=== PATIENT | male | born 1970 ===

== ENCOUNTER 2018-10-11 19:18 | Inpatient (IN) | payer SELFPAY ==
--- NOTE | 2018-10-11 20:01 | Emergency Department Report ---
Blank Doc - Documentation Documentation: This is a 48-year-old male that presents with left foot cellulitis and HTN. This initial assessment/diagnostic orders/clinical plan/treatment(s) is/are subject to change based on patient's health status, clinical progression and re- assessment by fellow clinical providers in the ED. Further treatment and workup at subsequent clinical providers discretion. Patient/guardians urged not to elope from the ED as their condition may be serious if not clinically assessed and managed. Initial orders include: 1- Patient sent to MAIN ED for further evaluation and treatment 2- labs
[2018-10-11] MEDS ORDERED: NACL 0.9% 1000 ML 2,000 ML IV ONE ×2 (20:50→21:18)
[2018-10-11] MEDS ORDERED: VANCOMYCIN 1,250 MG in NACL 0.9% 500 ML 500 ML IV ONE (20:50)
[2018-10-11 20:54] LABS: Basophils % (Auto) 0.2 % (0.0-1.8); Eosinophils % (Auto) 0.1 % (0.0-4.3); Hematocrit 26.7 % (35.5-45.6); Hemoglobin 9.3 gm/dl (11.8-15.2); Mean Corpuscular HGB Conc 35 % (32-34); Mean Corpuscular Volume 91 fl (84-94); Monocytes # (Auto) 1.5 K/mm3 (0.0-0.8); Monocytes % (Auto) 10.2 % (0.0-7.3); Platelet Count 309 K/mm3 (140-440); Red Blood Count 2.94 M/mm3 (3.65-5.03); Red Cell Distribution Width 13.1 % (13.2-15.2)
[2018-10-11] MEDS ORDERED: CLEOCIN 600 MG/50 mL 600 MG/50 ML BAG IV ONE (20:58)
[2018-10-11] MEDS ORDERED: BOOSTRIX IM ONE (20:59)
--- NOTE | 2018-10-11 20:59 | Emergency Department Report ---
ED General Adult HPI - General Chief complaint: Skin/Abscess/Foreign Body Stated complaint: HIGH BP/LEFT FOOT SWOLLEN/BLEEDING Time Seen by Provider: 10/11/18 20:00 Source: patient, family, RN notes reviewed Mode of arrival: Ambulatory Limitations: Language Barrier (this provider is conversational in Japanese. The patient also requests that his son translate and assists in the history and phys ical.) - History of Present Illness Initial comments: This is a 48-year-old gentleman, reportedly living in the [place] for the past 20 years, reports a history of diabetes. He presents to the emergency room today with complaint of left foot redness, p ain, swelling. Apparently this has been present for a few days. His symptoms are constant. They do not radiate anywhere. He makes no complaint of headache, neck pain, chest pain, abdominal pain, shortness of breath or urinary symptoms. This is his first request for medical attention for this lesion. He is not sure if he's had a tetanus vaccination in the past 4 or 5 years. -: Gradual, days(s) Location: left, lower extremity Radiation: non-radiation Severity scale (0 -10): 8 Consistency: constant Improves with: other Worsens with: other - Related Data Previous Rx's Medication Instructions Recorded Last Taken Type cephALEXin [Keflex] 500 mg PO Q8H #15 capsule 12/26/14 Unknown Rx Sulfamethoxazole/Trimethoprim 1 each PO BID #20 tablet 01/06/15 Unknown Rx [Bactrim Ds] metFORMIN [Glucophage] 1,000 mg PO BID #60 tablet 01/06/15 Unknown Rx Allergies Allergy/AdvReac Type Severity Reaction Status Date / Time Penicillins Allergy Dizziness Verified 12/26/14 02:05 ED Review of Systems ROS: Stated complaint: HIGH BP/LEFT FOOT SWOLLEN/BLEEDING Other details as noted in HPI Constitutional: denies: fever Eyes: denies: eye discharge ENT: denies: epistaxis Respiratory: denies: cough Cardiovascular: denies: chest pain Gastrointestinal: denies: abdominal pain Genitourinary: denies: dysuria Musculoskeletal: joint swelling, arthralgia, myalgia Skin: rash, lesions Neurological: denies: weakness ED Past Medical Hx - Past Medical History Previous Medical History?: Yes Hx Hypertension: Yes Hx Diabetes: Yes - Surgical History Past Surgical History?: No - Social History Smoking Status: Never Smoker Substance Use Type: None - Medications Home Medications: Home Medications Medication Instructions Recorded Confirmed Last Taken Type cephALEXin [Keflex] 500 mg PO Q8H #15 capsule 12/26/14 Unknown Rx Sulfamethoxazole/Trimethoprim 1 each PO BID #20 tablet 01/06/15 Unknown Rx [Bactrim Ds] metFORMIN [Glucophage] 1,000 mg PO BID #60 tablet 01/06/15 Unknown Rx ED Physical Exam - General Limitations: Language Barrier General appearance: alert, in no apparent distress - Head Head exam: Present: atraumatic, normocephalic - Eye Eye exam: Present: normal appearance, EOMI. Absent: nystagmus - ENT ENT exam: Present: normal exam, normal orophraynx, mucous membranes moist, normal external ear exam - Neck Neck exam: Present: normal inspection, full ROM. Absent: tenderness, meningismus - Respiratory Respiratory exam: Present: normal lung sounds bilaterally. Absent: respiratory distress - Cardiovascular Cardiovascular Exam: Present: regular rate, normal rhythm, normal heart sounds. Absent: bradycardia, tachycardia, irregular rhythm, systolic murmur, diastolic murmur, rubs, gallop - GI/Abdominal GI/Abdominal exam: Present: soft. Absent: distended, tenderness, guarding, rebound, rigid, pulsatile mass - Rectal Rectal exam: Present: deferred - Extremities Exam Extremities exam: Present: full ROM, tenderness (there is left foot redness, warmth, streaking, erythema. There is no crepitus. Fourth toe appears to be necrotic. Compartments are soft.), other (2+ pulses noted in the bilateral upper, lower extremities. Compartments soft. No long bony tenderness. The pelvis is stable.). Absent: normal inspection (the bilateral upper extremities are within normal limits, and the right lower extremity and foot are within normal limits.), pedal edema, joint swelling, calf tenderness - Back Exam Back exam: Present: normal inspection, full ROM. Absent: tenderness, CVA tenderness (R), paraspinal tenderness, vertebral tenderness - Neurological Exam Neurological exam: Present: alert, other (Extraocular movements intact. Tongue midline. No facial droop. Facial sensation intact to light touch in the V1, V2, V3 distribution bilaterally. 5 and 5 strength in 4 extremities.. Sensation is intact to light touch in 4 extremities.). Absent: motor sensory deficit - Psychiatric Psychiatric exam: Present: normal affect, normal mood - Skin Skin exam: Present: warm, rash, erythema ED Course Vital Signs 10/11/18 10/11/18 20:01 20:36 Temperature 98.7 F 99.1 F Pulse Rate 85 83 Respiratory 18 18 Rate Blood Pressure 140/81 Blood Pressure 168/77 [Left] O2 Sat by Pulse 100 Oximetry - Reevaluation(s) Reevaluation #1: 10/11/18 22:53 Differential diagnosis, including but not limited to: Cellulitis, myositis, osteomyelitis, diabetic injury, incidental renal insufficiency, incidental electrolyte abnormalities Assessment and plan: 48-year-old gentleman with 2 active issues Issue #1: Diabetic foot cellulitis. Pulses are intact. Patient will be treated with IV fluids, pain medication, appropriate targeted antibiotic therapy, and x-ray of the foot. Tetanus vaccination be admitted. I recommended admission to the hospital for IV antibiotics and further wound care. X-ray the foot suggest gas around the fourth digit, in conjunction with necrotic tissue, we will therefore obtain general surgery consult to follow in consul tation. Issue #2: Incidental renal insufficiency, creatinine of greater than 4, and hyperkalemia. We will give IV fluids, and she medically for hyperkalemia. Repeat basic metabolic panel has been ordered. Discussed with nephrology electronic equipment maint tech, Dr. Pimentel, who will follow in consultation. Case is presented to the Hospital physician, Dr. Montoya, who has accepted the patient to the medical service. I will defer to the inpatient team to follow-up on the repeat basic metabolic panel. 10/11/18 23:00 - Consultations Consultation #1: 10/11/18 23:12 Discussed with general surgery on-call, Dr. Oakes, who agrees to follow in consultation. ED Medical Decision Making - Lab Data Result diagrams: 10/11/18 20:17 10/11/18 20:17 Vital Signs 10/11/18 10/11/18 20:01 20:36 Temperature 98.7 F 99.1 F Pulse Rate 85 83 Respiratory 18 18 Rate Blood Pressure 140/81 Blood Pressure 168/77 [Left] O2 Sat by Pulse 100 Oximetry Lab Results 10/11/18 10/11/18 10/11/18 Range/Units 20:08 20:17 20:17 WBC 14.3 H (4.5-11.0) K/mm3 RBC 2.94 L (3.65-5.03) M/mm3 Hgb 9.3 L (11.8-15.2) gm/dl Hct 26.7 L (35.5-45.6) % MCV 91 (84-94) fl MCH 31 (28-32) pg MCHC 35 H (32-34) % RDW 13.1 L (13.2-15.2) % Plt Count 309 (140-440) K/mm3 Lymph % (Auto) 7.0 L (13.4-35.0) % [place] % (Auto) 10.2 H (0.0-7.3) % Eos % (Auto) 0.1 (0.0-4.3) % Baso % (Auto) 0.2 (0.0-1.8) % Lymph # 1.0 L (1.2-5.4) K/mm3 [place] # 1.5 H (0.0-0.8) K/mm3 Eos # 0.0 (0.0-0.4) K/mm3 Baso # 0.0 (0.0-0.1) K/mm3 Seg Neutrophils % 82.5 H (40.0-70.0) % Seg Neutrophils # 11.8 H (1.8-7.7) K/mm3 ESR (0-20) mm/Hr Sodium 131 L (137-145) mmol/L Potassium 6.4 H* (3.6-5.0) mmol/L Chloride 93.9 L (98-107) mmol/L Carbon Dioxide 22 (22-30) mmol/L Anion Gap 22 mmol/L BUN 72 H (9-20) mg/dL Creatinine 4.6 H (0.8-1.5) mg/dL Estimated GFR 14 ml/min BUN/Creatinine Ratio 16 % Glucose 114 H (75-100) mg/dL POC Glucose 115 H (70-105) Lactic Acid (0.7-2.0) mmol/L Calcium 9.3 (8.4-10.2) mg/dL Total Bilirubin 0.20 (0.1-1.2) mg/dL Direct Bilirubin < 0.2 (0-0.2) mg/dL Indirect Bilirubin 0.0 mg/dL AST 21 (5-40) units/L ALT 18 (7-56) units/L Alkaline Phosphatase 92 (35-129) units/L C-Reactive Protein (0.00-1.30) mg/dL Total Protein 7.4 (6.3-8.2) g/dL Albumin 4.0 (3.9-5) g/dL Albumin/Globulin Ratio 1.2 % Urine Color (Yellow) Urine Turbidity (Clear) Urine pH (5.0-7.0) Ur Specific [place] (1.003-1.030) Urine Protein (Negative) mg/dL Urine Glucose (UA) (Negative) mg/dL Urine Ketones (Negative) mg/dL Urine Blood (Negative) Urine Nitrite (Negative) Urine Bilirubin (Negative) Urine Urobilinogen (<2.0) mg/dL Ur Leukocyte Esterase (Negative) Urine WBC (Auto) (0.0-6.0) /HPF Urine RBC (Auto) (0.0-6.0) /HPF U Epithel Cells (Auto) (0-13.0) /HPF Hyaline Casts /LPF Urine Mucus /HPF Urine Yeast (Budding) /HPF Urine Sperm ([employer]) /HPF 10/11/18 10/11/18 10/11/18 Range/Units 21:05 21:05 21:05 WBC (4.5-11.0) K/mm3 RBC (3.65-5.03) M/mm3 Hgb (11.8-15.2) gm/dl Hct (35.5-45.6) % MCV (84-94) fl MCH (28-32) pg MCHC (32-34) % RDW (13.2-15.2) % Plt Count (140-440) K/mm3 Lymph % (Auto) (13.4-35.0) % [place] % (Auto) (0.0-7.3) % Eos % (Auto) (0.0-4.3) % Baso % (Auto) (0.0-1.8) % Lymph # (1.2-5.4) K/mm3 [place] # (0.0-0.8) K/mm3 Eos # (0.0-0.4) K/mm3 Baso # (0.0-0.1) K/mm3 Seg Neutrophils % (40.0-70.0) % Seg Neutrophils # (1.8-7.7) K/mm3 ESR 140 (0-20) mm/Hr Sodium (137-145) mmol/L Potassium (3.6-5.0) mmol/L Chloride (98-107) mmol/L Carbon Dioxide (22-30) mmol/L Anion Gap mmol/L BUN (9-20) mg/dL Creatinine (0.8-1.5) mg/dL Estimated GFR ml/min BUN/Creatinine Ratio % Glucose (75-100) mg/dL POC Glucose (70-105) Lactic Acid 0.70 (0.7-2.0) mmol/L Calcium (8.4-10.2) mg/dL Total Bilirubin (0.1-1.2) mg/dL Direct Bilirubin (0-0.2) mg/dL Indirect Bilirubin mg/dL AST (5-40) units/L ALT (7-56) units/L Alkaline Phosphatase (35-129) units/L C-Reactive Protein 4.90 H (0.00-1.30) mg/dL Total Protein (6.3-8.2) g/dL Albumin (3.9-5) g/dL Albumin/Globulin Ratio % Urine Color (Yellow) Urine Turbidity (Clear) Urine pH (5.0-7.0) Ur Specific [place] (1.003-1.030) Urine Protein (Negative) mg/dL Urine Glucose (UA) (Negative) mg/dL Urine Ketones (Negative) mg/dL Urine Blood (Negative) Urine Nitrite (Negative) Urine Bilirubin (Negative) Urine Urobilinogen (<2.0) mg/dL Ur Leukocyte Esterase (Negative) Urine WBC (Auto) (0.0-6.0) /HPF Urine RBC (Auto) (0.0-6.0) /HPF U Epithel Cells (Auto) (0-13.0) /HPF Hyaline Casts /LPF Urine Mucus /HPF Urine Yeast (Budding) /HPF Urine Sperm ([employer]) /HPF 10/11/18 Range/Units 21:20 WBC (4.5-11.0) K/mm3 RBC (3.65-5.03) M/mm3 Hgb (11.8-15.2) gm/dl Hct (35.5-45.6) % MCV (84-94) fl MCH (28-32) pg MCHC (32-34) % RDW (13.2-15.2) % Plt Count (140-440) K/mm3 Lymph % (Auto) (13.4-35.0) % [place] % (Auto) (0.0-7.3) % Eos % (Auto) (0.0-4.3) % Baso % (Auto) (0.0-1.8) % Lymph # (1.2-5.4) K/mm3 [place] # (0.0-0.8) K/mm3 Eos # (0.0-0.4) K/mm3 Baso # (0.0-0.1) K/mm3 Seg Neutrophils % (40.0-70.0) % Seg Neutrophils # (1.8-7.7) K/mm3 ESR (0-20) mm/Hr Sodium (137-145) mmol/L Potassium (3.6-5.0) mmol/L Chloride (98-107) mmol/L Carbon Dioxide (22-30) mmol/L Anion Gap mmol/L BUN (9-20) mg/dL Creatinine (0.8-1.5) mg/dL Estimated GFR ml/min BUN/Creatinine Ratio % Glucose (75-100) mg/dL POC Glucose (70-105) Lactic Acid (0.7-2.0) mmol/L Calcium (8.4-10.2) mg/dL Total Bilirubin (0.1-1.2) mg/dL Direct Bilirubin (0-0.2) mg/dL Indirect Bilirubin mg/dL AST (5-40) units/L ALT (7-56) units/L Alkaline Phosphatase (35-129) units/L C-Reactive Protein (0.00-1.30) mg/dL Total Protein (6.3-8.2) g/dL Albumin (3.9-5) g/dL Albumin/Globulin Ratio % Urine Color Yellow (Yellow) Urine Turbidity Slightly-cloudy (Clear) Urine pH 5.0 (5.0-7.0) Ur Specific [place] 1.011 (1.003-1.030) Urine Protein 100 mg/dl (Negative) mg/dL Urine Glucose (UA) Neg (Negative) mg/dL Urine Ketones Tr (Negative) mg/dL Urine Blood Sm (Negative) Urine Nitrite Neg (Negative) Urine Bilirubin Neg (Negative) Urine Urobilinogen < 2.0 (<2.0) mg/dL Ur Leukocyte Esterase Neg (Negative) Urine WBC (Auto) 2.0 (0.0-6.0) /HPF Urine RBC (Auto) 6.0 (0.0-6.0) /HPF U Epithel Cells (Auto) < 1.0 (0-13.0) /HPF Hyaline Casts 1 /LPF Urine Mucus Few /HPF Urine Yeast (Budding) Few /HPF Urine Sperm Few ([employer]) /HPF - EKG Data -: EKG Interpreted by Me EKG shows normal: sinus rhythm Rate: normal - EKG Data When compared to previous EKG there are: previous EKG unavailable 10/11/18 23:00 EKG shows sinus, 79 bpm, normal axis, QTC within normal limits, high left ventricular voltage, early repolarization, question atrial enlargement, motion artifact, abnormal EKG, this is not consistent with an ST elevation myocardial infarction. - Radiology Data Radiology results: image reviewed interpreted by me: X-ray of the foot demonstrates gas around the fourth toe. No obvious fracture or dislocation. Critical Care Time: Yes Critical care time in (mins) excluding proc time.: 60 Critical care attestation.: If time is entered above; I have spent that time in minutes in the direct care of this critically ill patient, excluding procedure time. ED Disposition Clinical Impression: Cellulitis of foot, left, DAVEY (acute kidney injury), Hyperkalemia Disposition: OP ADMIT IP TO THIS HOSP Is pt being admited?: Yes Condition: Serious
[2018-10-11 21:12] LABS: Alanine Aminotransferase 18 units/L (7-56); BUN/Creatinine Ratio 16; Blood Urea Nitrogen 72 mg/dL (9-20); Calcium 9.3 mg/dL (8.4-10.2); Hemolysis Index 0
[2018-10-11 21:13] LABS: Bilirubin,Direct < 0.2 mg/dL (0-0.2)
[2018-10-11] MEDS ORDERED: PROVENTIL IH ONE (21:17)
[2018-10-11] MEDS ORDERED: HumuLIN R IV ONE (21:17)
[2018-10-11] MEDS ORDERED: CALCIUM GLUCONATE 2,000 MG in NACL 0.9% 100 ML IV ONE (21:17)
[2018-10-11] MEDS ORDERED: KIONEX PO ONE (21:17)
[2018-10-11] MEDS ORDERED: D50W (25GM) Syringe IV ONE (21:17)
[2018-10-11 21:34] LABS: Bilirubin,Urine NEG (Negative); Blood,Urine SM (Negative); Color,Urine Yellow (Yellow); Hyaline Casts,Urine 1 /LPF; Mucus,Urine FEW /HPF; Sperm,Urine FEW /HPF (NP); Urobilinogen,Urine < 2.0 mg/dL (<2.0)
[2018-10-11] MEDS ORDERED: VANCOMYCIN 1,250 MG in NACL 0.9% 250ML 250 ML IV ONE (22:00)
[2018-10-11] MEDS ORDERED: FLAGYL 500 MG/100 ML 500 MG/100 ML BAG IV NR (23:00)
--- NOTE | 2018-10-11 23:33 | XRay Report ---
PROCEDURE: XR FOOT 3+V LT TECHNIQUE: Left foot radiographs, AP, lateral, and oblique views. HISTORY: left foot pain cellulitis COMPARISONS: None . FINDINGS: There is irregular infarction DISTAL metaphysis of fourth proximal phalanx associated with adjacent s oft tissue air. There is no definite periosteal reaction. Moderate degree of surrounding soft tissue swelling is noted. Remaining bones and joints are within normal limits. IMPRESSION: Findings are consistent with acute osteomyelitis involving the fourth proximal phalanx. This document is electronically signed by Tl Barber MD., October 11 2018 11:31:30 PM ET
[2018-10-12] MEDS ORDERED: MORPHINE IV PRN (00:23)
[2018-10-12] MEDS ORDERED: ZOFRAN IV PRN (00:24)
[2018-10-12] MEDS ORDERED: TYLENOL PR PRN (00:25)
[2018-10-12] MEDS ORDERED: D50W (25GM) Syringe IV PRN (00:26)
[2018-10-12] MEDS ORDERED: VANCOMYCIN PHARMACY TO DOSE IV SCH (01:00)
[2018-10-12] MEDS ORDERED: VANCOMYCIN 1,250 MG in NACL 0.9% 250ML 250 ML IV ONE (01:00)
[2018-10-12 07:46] LABS: Calcium 8.3 mg/dL (8.4-10.2)
[2018-10-12] MEDS: HumuLIN R SUB-Q SCH ×4 (08:00→22:50)
[2018-10-12] MEDS ORDERED: XYLOCAINE 1% 20 mL INFILTRATI NR (09:10)
--- NOTE | 2018-10-12 09:42 | Consultation ---
History of Present Illness Consult date: 10/12/18 Reason for consult: other (left foot infection) Requesting physician: BIJAL SCHMITT Chief complaint: 1 week h/o left foot pain - History of present illness History of present illness: 48yo M presents with left foot pain by one week. Reports that there was no trauma to the left foot. One day he started to notice the 4th toe getting darker appearance and then eventually starting to swell and cause pain. Denies fevers. Has been having chills, nausea, vomiting. Has never had any problems with the foot in the past. He does feel as though it is asleep. Is able to walk without problems. We are asked to see him for possible 4th toe infection. As an aside, patient reports that his blood sugars are normally around 145. Past History Past Medical History: diabetes, hypertension Past Surgical History: No surgical history, Other (has had EGD and C-scope) Social history: denies: smoking, alcohol abuse, prescription drug abuse, IV drug use Family history: no significant family history Medications and Allergies Allergies Allergy/AdvReac Type Severity Reaction Status Date / Time Penicillins Allergy Dizziness Verified 12/26/14 02:05 Home Medications Medication Instructions Recorded Confirmed Last Taken Type cephALEXin [Keflex] 500 mg PO Q8H #15 capsule 12/26/14 Unknown Rx Sulfamethoxazole/Trimethoprim 1 each PO BID #20 tablet 01/06/15 Unknown Rx [Bactrim Ds] metFORMIN [Glucophage] 1,000 mg PO BID #60 tablet 01/06/15 Unknown Rx Active Meds: Active Medications Acetaminophen (Tylenol) 650 mg [place] Q4H PRN PRN Reason: Fever >101 Dextrose (D50w (25gm) Syringe) 50 ml IV PRN PRN PRN Reason: Hypoglycemia Insulin Human Regular (Humulin R) 0 units SUB-Q AC JOSÉ ANTONIO; Protocol Insulin Human Regular (Humulin R) 0 units SUB-Q QHS JOSÉ ANTONIO; Protocol Lidocaine (Xylocaine 1% 20 Ml) 20 ml INFILTRATI ONCE ONE Stop: 10/12/18 09:11 Morphine Sulfate (Morphine) 2 mg IV Q4H PRN PRN Reason: Pain, Moderate (4-6) Ondansetron HCl (Zofran) 4 mg IV Q8H PRN PRN Reason: Nausea And Vomiting Review of Systems - Constitutional chills, no fever, no chronic pain - Cardiovascular no chest pain, no shortness of breath - Respiratory no cough - Gastrointestinal nausea, vomiting, no abdominal pain - Integumentary rash, redness, wounds, darkening of skin, color changes - Neurological tingling (left foot) Exam Vital Signs Temp Pulse Resp BP 98.7 F 85 18 140/81 10/11/18 20:01 10/11/18 20:01 10/11/18 20:01 10/11/18 20:01 - General physical appearance Positive: no distress, no pain, other (pleasant) - Eyes Positive: normal occular movement - Respiratory Positive: normal expansion, normal respiratory effort - Extremities Extremities: pulses intact Extremity abnormal: edema, erythema, tenderness, other (increased warmth of left foot. There is purulent fluid draining from lateral aspect of 4th toe) - Neurologic Neurologic: alert and oriented to time, place and person, motor strength and sensation are grossly intact - Psychiatric Psychiatric: appropriate mood/affect, intact judgment & insight Results - Labs 10/11/18 20:17 10/12/18 06:31 Abnormal lab results 10/11/18 10/11/18 10/11/18 Range/Units 20:08 20:17 20:17 WBC 14.3 H (4.5-11.0) K/mm3 RBC 2.94 L (3.65-5.03) M/mm3 Hgb 9.3 L (11.8-15.2) gm/dl Hct 26.7 L (35.5-45.6) % MCHC 35 H (32-34) % RDW 13.1 L (13.2-15.2) % Lymph % (Auto) 7.0 L (13.4-35.0) % [place] % (Auto) 10.2 H (0.0-7.3) % Lymph # 1.0 L (1.2-5.4) K/mm3 [place] # 1.5 H (0.0-0.8) K/mm3 Seg Neutrophils % 82.5 H (40.0-70.0) % Seg Neutrophils # 11.8 H (1.8-7.7) K/mm3 Sodium 131 L (137-145) mmol/L Potassium 6.4 H* (3.6-5.0) mmol/L Chloride 93.9 L (98-107) mmol/L BUN 72 H (9-20) mg/dL Creatinine 4.6 H (0.8-1.5) mg/dL Glucose 114 H (75-100) mg/dL POC Glucose 115 H (70-105) Calcium (8.4-10.2) mg/dL C-Reactive Protein (0.00-1.30) mg/dL 10/11/18 10/12/18 10/12/18 Range/Units 21:05 06:31 07:43 WBC (4.5-11.0) K/mm3 RBC (3.65-5.03) M/mm3 Hgb (11.8-15.2) gm/dl Hct (35.5-45.6) % MCHC (32-34) % RDW (13.2-15.2) % Lymph % (Auto) (13.4-35.0) % [place] % (Auto) (0.0-7.3) % Lymph # (1.2-5.4) K/mm3 [place] # (0.0-0.8) K/mm3 Seg Neutrophils % (40.0-70.0) % Seg Neutrophils # (1.8-7.7) K/mm3 Sodium (137-145) mmol/L Potassium (3.6-5.0) mmol/L Chloride (98-107) mmol/L BUN 59 H (9-20) mg/dL Creatinine 3.7 H (0.8-1.5) mg/dL Glucose 163 H (75-100) mg/dL POC Glucose 158 H (70-105) Calcium 8.3 L (8.4-10.2) mg/dL C-Reactive Protein 4.90 H (0.00-1.30) mg/dL Diabetes panel 10/11/18 10/12/18 Range/Units 20:17 06:31 Sodium 131 L 141 D (137-145) mmol/L Potassium 6.4 H* 4.2 D (3.6-5.0) mmol/L Chloride 93.9 L 105.8 (98-107) mmol/L Carbon Dioxide 22 24 (22-30) mmol/L BUN 72 H 59 H (9-20) mg/dL Creatinine 4.6 H 3.7 H (0.8-1.5) mg/dL Glucose 114 H 163 H (75-100) mg/dL Calcium 9.3 8.3 L (8.4-10.2) mg/dL AST 21 (5-40) units/L ALT 18 (7-56) units/L Alkaline Phosphatase 92 (35-129) units/L Total Protein 7.4 (6.3-8.2) g/dL Albumin 4.0 (3.9-5) g/dL Calcium panel 10/11/18 10/12/18 Range/Units 20:17 06:31 Calcium 9.3 8.3 L (8.4-10.2) mg/dL Albumin 4.0 (3.9-5) g/dL Pituitary panel 10/11/18 10/12/18 Range/Units 20:17 06:31 Sodium 131 L 141 D (137-145) mmol/L Potassium 6.4 H* 4.2 D (3.6-5.0) mmol/L Chloride 93.9 L 105.8 (98-107) mmol/L Carbon Dioxide 22 24 (22-30) mmol/L BUN 72 H 59 H (9-20) mg/dL Creatinine 4.6 H 3.7 H (0.8-1.5) mg/dL Glucose 114 H 163 H (75-100) mg/dL Calcium 9.3 8.3 L (8.4-10.2) mg/dL Adrenal panel 10/11/18 10/12/18 Range/Units 20:17 06:31 Sodium 131 L 141 D (137-145) mmol/L Potassium 6.4 H* 4.2 D (3.6-5.0) mmol/L Chloride 93.9 L 105.8 (98-107) mmol/L Carbon Dioxide 22 24 (22-30) mmol/L BUN 72 H 59 H (9-20) mg/dL Creatinine 4.6 H 3.7 H (0.8-1.5) mg/dL Glucose 114 H 163 H (75-100) mg/dL Calcium 9.3 8.3 L (8.4-10.2) mg/dL Total Bilirubin 0.20 (0.1-1.2) mg/dL AST 21 (5-40) units/L ALT 18 (7-56) units/L Alkaline Phosphatase 92 (35-129) units/L Total Protein 7.4 (6.3-8.2) g/dL Albumin 4.0 (3.9-5) g/dL - Imaging Additional studies: left foot x-ray reviewed and report read Assessment and Plan - Patient Problems (1) Cellulitis of foot, left Current Visit: Yes Status: Acute Plan to address problem: Patient stable. Patient appears to be need for incision and drainage of left 4th toe. We will begin by a bedside procedure. If there is extensive infection, then we will make arrangements for the operating room. If he does not improve after that intervention, it may be a very deep infection such that we may have to consider the possibility of amputation. Pt understands. The cause is probably skin trauma from the adjacent sharp toenail. Supplied for I&D have been ordered. Will perform later today. Will get cultures. Please call with questions. time=30min
--- NOTE | 2018-10-12 13:17 | Procedure Note ---
Date of procedure: 10/12/18 Pre-op diagnosis: left 4th toe abscess Post-op diagnosis: same Procedure: 1) digital nerve block. 2) I&D of left 4th toe. Consent was obtained for I&D of left 4th toe. Timeout was called Sterile prep was done. 1% lidocaine plain was used to create a digital nerve block around the 4th toe. A wheel of anesthetic was placed over the dorsal aspect of the joint. Anesthetic was injected on both sides of the joint taking care to aspirate along the way to make sure there was no entry into blood vessels. Once that was done, I checked to make sure we had a good block which we did. I then began to probe the wound. It extended down the lateral aspect o f the toe and across the dorsum of the toe. I opened the entire area up with scissors. there was additional plus that was drained. Cultures were taken both on the lateral aspect and over the dorsum of the toe. I excised some of the early necrotic skin. Once it was thoroughly irrigated I make sure there is no extension into the foot itself or any other aspect of the toe. I did not find any other tracks. After the wound was clean, I packed it with alginate and wrap the foot with kerlex. Patient tolerated the procedure well. There were no complications. Cultures were sent for evaluation. Anesthesia: local Surgeon: RENE OLSEN Estimated blood loss: minimal Pathology: list (2 sets of culture swabs) Specimen disposition: to lab Condition: stable Disposition: floor
--- NOTE | 2018-10-12 13:43 | History and Physical Report ---
CHIEF COMPLAINT: Swelling and skin discoloration of the fourth toe of the left foot. HISTORY OF PRESENT ILLNESS: The patient is a 48-year-old male, who presented with pain, swelling, and redness of the fourth toe of the left foot. The patient said that this has been going on for a few days. There is no history of trauma. No history of fever or chills. No history of nausea or vomiting. Also the patient complained about dark discoloration of the fourth toe of the left foot. PAST MEDICAL HISTORY: Pertinent for diabetes mellitus and hypertension. PAST SURGICAL HISTORY: Unremarkable. FAMILY HISTORY: Noncontributory. SOCIAL HISTORY: The patient does not smoke, does not drink alcohol, and does not use illicit drugs. MEDICATIONS: The patient is on Keflex 500 mg by mouth every 8 hours, Bactrim double strength one by mouth twice daily, metformin, and Glucophage 1000 mg by mouth twice daily. ALLERGIES: THE PATIENT IS ALLERGIC TO PENICILLIN. REVIEW OF SYSTEMS: CONSTITUTIONAL: There is no fever, no chills. No diaphoresis. HEENT: There is no headache or sore throat. CARDIOVASCULAR SYSTEM: There is no chest pain or orthopnea. RESPIRATORY SYSTEM: There is no shortness of breath or cough. GASTROINTESTINAL SYSTEM: There is no nausea, no vomiting, no abdominal pain, diarrhea or constipation. NEUROLOGICAL SYSTEM: There is no numbness, no dizziness, no altered mental status. MUSCULOSKELETAL SYSTEM: There is pain and swelling of the fourth toe of the left foot. DERMATOLOGICAL SYSTEM: There is dark discoloration of the fourth toe of the left foot. GENITOURINARY SYSTEM: There is no dysuria, hematuria or flank pain. Rest of system review is normal. PHYSICAL EXAMINATION: GENERAL: At the time of exam, the patient was found to be alert and oriented x 3 and not in acute distress. VITAL SIGNS: Shows temperature of 98.7 degrees Fahrenheit, pulse of 85, respiration 18, blood pressure 140/81, and O2 sat of 100% on room air. HEENT: Showed pupils to be equal, round, and reactive to light and accommodating. Extraocular muscles are intact. NECK: Supple with no JVD or carotid bruit. CARDIOVASCULAR SYSTEM: Showed normal first and second heart sounds with no gallops or murmurs. RESPIRATORY SYSTEM: Showed good air entry on both sides of the lungs with no abnormal breath sounds. GASTROINTESTINAL SYSTEM: Showed abdomen to be full, soft, and nontender with no organomegaly or rigidity. NEUROLOGICAL SYSTEM: Showed no focal deficit. MUSCULOSKELETAL SYSTEM: Showed swelling and tenderness in the left fourth toe. DERMATOLOGICAL SYSTEM: Showed dark discoloration on the left fourth toe. GENITOURINARY SYSTEM: Showed no costovertebral angle tenderness. PERTINENT LABORATORY DATA AND IMAGING STUDIES: The patient had x-ray of the foot done that showed findings consistent with acute osteomyelitis involving the fourth proximal phalanx. Laboratory results: The patient had CBC done with elevated white count of 14,300, low hemoglobin of 9.3, and low hematocrit of 26.7. CBC differential shows a high monocyte count of 10.2 and high segmented neutrophil count of 82.5%. The patient's chemistry showed low sodium of 131 with low chloride of 93.9 and high potassium level of 6.4 with high BUN of 72, and high creatinine of 4.6. The patient's C-reactive protein level is high with a value of 4.9. Urinalysis was unremarkable. DIAGNOSES: 1. Left foot osteomyelitis. 2. Acute kidney injury. 3. Hyperkalemia. PLAN OF CARE: 1. The patient will be admitted to telemetry. 2. The patient will continue nephrologic consult with Dr. Mcclain for acute kidney injury with hyperkalemia. 3. The patient will continue general surgical consult with Dr. Oakes because of necrotic fourth toe of the left foot with presence of gas on the x-ray. 4. The patient will have Accu-Cheks a.c. and at bedtime, followed by low-dose sliding scale using regular insulin coverage. 5. The patient will be on IV morphine 2 mg every 4 hours as needed for nausea and vomiting. 6. The patient will be on IV vancomycin with pharmacy to dose. 7. The patient will be on IV Zofran 4 mg every 8 hours for nausea and vomiting. 8. The patient will have sequential compressive device as DVT prophylactic treatment. 9. The patient will have basic metabolic panel checked this morning. JOB# [id number] OCN/NTS
--- NOTE | 2018-10-12 14:40 | Consultation ---
History of Present Illness - Reason for Consult Consult date: 10/12/18 osteomylitis of the 4th toe Requesting physician: PAULA WHEELER - History of Present Illness This patient is a 48 year old male with a past medical history of diabetes and hypertension, that presents in the ED on 10/11/18 with complaints of left foot pain for 1 week. He stated that he started to notice that the 4th toe was getting darker in appearance and started to swell and cause pain. He report chills, nausea and vomiting.. On admission WBC 14.3, Creatinine 4.6, CRP 4.90, Temperature 98.7, HR 85., BP 140/81. U/A showed no pyuria. LE negative.. Blood and wound cultures are in progress. Foot Xray shows acute osteomyelitis involving the fourth proximal phalanx. Review of Systems General: +Chills, no fever, nightsweats, unintentional weight change, or change in appetite Cutaneous: no rash, pruritus Head: no headaches or injury Eyes: no changes in vision, eye pain, double vision Ears: no ear pain, ear discharge, ringing or hearing loss Nose: no nose bleeding, stuffiness Mouth & throat: no bleeding gums, no horseness, no dental problems, or swollen glands Neck: no pain, node enlargement/lumps, tyroid enlargement or tenderness Respiratory: no cough, wheezing, sputum, hemoptysis, pleuritic chest pain Cardiovascular: no chest pain, leg edema, cyanosis, DANIELS, orthopnea Musculoskeletal: Right 4th toe ulceration, 5th toe nail bed dark. Gastrointestinal: no nausea, vomiting, hematemesis, diarrhea, constipation, melena, bright red blood in stools, fecal incontinence, jaundice Genitourinary/Reproductive: no frequent urination, no dysuria, hematuria, incontinence Neurogical: no seizures, no headaches, no weakness, no paresthesias, no loss of speech or vision; no memory loss Psychiatric: stable mood; no excessive anxiety, sadness or moodiness Past History Past Medical History: diabetes, hypertension Past Surgical History: No surgical history, Other (has had EGD and C-scope) Social history: denies: smoking, alcohol abuse, prescription drug abuse, IV drug use Family history: no significant family history Medications and Allergies Allergies Allergy/AdvReac Type Severity Reaction Status Date / Time Penicillins Allergy Dizziness Verified 12/26/14 02:05 Home Medications Medication Instructions Recorded Confirmed Last Taken Type cephALEXin [Keflex] 500 mg PO Q8H #15 capsule 12/26/14 Unknown Rx Sulfamethoxazole/Trimethoprim 1 each PO BID #20 tablet 01/06/15 Unknown Rx [Bactrim Ds] metFORMIN [Glucophage] 1,000 mg PO BID #60 tablet 01/06/15 Unknown Rx Active Meds: Active Medications Acetaminophen (Tylenol) 650 mg [place] Q4H PRN PRN Reason: Fever >101 Dextrose (D50w (25gm) Syringe) 50 ml IV PRN PRN PRN Reason: Hypoglycemia Insulin Human Regular (Humulin R) 0 units SUB-Q AC JOSÉ ANTONIO; Protocol Last Admin: 10/12/18 08:00 Dose: 1 units Documented by: Insulin Human Regular (Humulin R) 0 units SUB-Q QHS JOSÉ ANTONIO; Protocol Lidocaine (Xylocaine 1% 20 Ml) 20 ml INFILTRATI ONCE NR Stop: 10/12/18 16:00 Morphine Sulfate (Morphine) 2 mg IV Q4H PRN PRN Reason: Pain, Moderate (4-6) Ondansetron HCl (Zofran) 4 mg IV Q8H PRN PRN Reason: Nausea And Vomiting Physical Examination - Physical Exam Narrative exam: Constitutional: Alert, cooperative. No acute distress. Communication via interpretation line, [place]ian speaking Head, Ears, Nose: Normocephalic, atraumatic. External ears, nose normal Eyes: Conjunctivae/corneas clear. No icterus. No ptosis. Neck: Supple, no meningeal signs Oral: dentition fair, no thrush Cardiovascular: S1, S2 normal. Respiratory: Good air entry, clear to auscultation bilaterally GI: Soft, non-tender; bowel sounds normal. No peritoneal signs Musculoskeletal: Left 4th toe diabetic ullceration with serosangunious drainage, + dressing Skin: No rash or abscess. Hem/Lymphatic: No palpable cervical or supraclavicular nodes. No lymphangitis Psych: Mood ok. Affect normal Neurological: Awake, alert, oriented. - Constitutional Vitals: Vital Signs Temp Pulse Resp BP Pulse Ox 98.5 F 86 14 125/73 98 10/12/18 07:28 10/12/18 07:28 10/12/18 07:28 10/12/18 07:28 10/12/18 07:28 Temperature -Last 24 Hours Temperature 98.5 F Temperature 98.1 F Temperature 98.2 F Temperature 98.4 F Temperature 99.1 F Temperature 98.7 F Results - Labs CBC & Chem 7: 10/11/18 20:17 10/12/18 06:31 Labs: Abnormal lab results 10/11/18 10/11/18 10/11/18 Range/Units 20:08 20:17 20:17 WBC 14.3 H (4.5-11.0) K/mm3 RBC 2.94 L (3.65-5.03) M/mm3 Hgb 9.3 L (11.8-15.2) gm/dl Hct 26.7 L (35.5-45.6) % MCHC 35 H (32-34) % RDW 13.1 L (13.2-15.2) % Lymph % (Auto) 7.0 L (13.4-35.0) % [place] % (Auto) 10.2 H (0.0-7.3) % Lymph # 1.0 L (1.2-5.4) K/mm3 [place] # 1.5 H (0.0-0.8) K/mm3 Seg Neutrophils % 82.5 H (40.0-70.0) % Seg Neutrophils # 11.8 H (1.8-7.7) K/mm3 Sodium 131 L (137-145) mmol/L Potassium 6.4 H* (3.6-5.0) mmol/L Chloride 93.9 L (98-107) mmol/L BUN 72 H (9-20) mg/dL Creatinine 4.6 H (0.8-1.5) mg/dL Glucose 114 H (75-100) mg/dL POC Glucose 115 H (70-105) Calcium (8.4-10.2) mg/dL C-Reactive Protein (0.00-1.30) mg/dL 10/11/18 10/12/18 10/12/18 Range/Units 21:05 06:31 07:43 WBC (4.5-11.0) K/mm3 RBC (3.65-5.03) M/mm3 Hgb (11.8-15.2) gm/dl Hct (35.5-45.6) % MCHC (32-34) % RDW (13.2-15.2) % Lymph % (Auto) (13.4-35.0) % [place] % (Auto) (0.0-7.3) % Lymph # (1.2-5.4) K/mm3 [place] # (0.0-0.8) K/mm3 Seg Neutrophils % (40.0-70.0) % Seg Neutrophils # (1.8-7.7) K/mm3 Sodium (137-145) mmol/L Potassium (3.6-5.0) mmol/L Chloride (98-107) mmol/L BUN 59 H (9-20) mg/dL Creatinine 3.7 H (0.8-1.5) mg/dL Glucose 163 H (75-100) mg/dL POC Glucose 158 H (70-105) Calcium 8.3 L (8.4-10.2) mg/dL C-Reactive Protein 4.90 H (0.00-1.30) mg/dL 10/12/18 Range/Units 12:09 WBC (4.5-11.0) K/mm3 RBC (3.65-5.03) M/mm3 Hgb (11.8-15.2) gm/dl Hct (35.5-45.6) % MCHC (32-34) % RDW (13.2-15.2) % Lymph % (Auto) (13.4-35.0) % [place] % (Auto) (0.0-7.3) % Lymph # (1.2-5.4) K/mm3 [place] # (0.0-0.8) K/mm3 Seg Neutrophils % (40.0-70.0) % Seg Neutrophils # (1.8-7.7) K/mm3 Sodium (137-145) mmol/L Potassium (3.6-5.0) mmol/L Chloride (98-107) mmol/L BUN (9-20) mg/dL Creatinine (0.8-1.5) mg/dL Glucose (75-100) mg/dL POC Glucose 246 H (70-105) Calcium (8.4-10.2) mg/dL C-Reactive Protein (0.00-1.30) mg/dL Assessment and Plan 10/11/2018 Foot Xray: Findings are consistent with acute osteomyelitis involving the fourth proximal phalanx. Cultures: 10/11/2018 Blood: in progress 10/11/2018 Left Foot: in progress 10/12/2018 Toe: In progress 48 year old male with a past medical history of diabetes and hypertension, that presents in the ED on 10/11/18 with complaints of left foot pain for 1 week. He stated that he started to notice that the 4th toe was getting darker in appearance and started to swell and cause pain. He report chills, nausea and vomiting. Admitted with: 1. Leukocytosis on admission: etiology most likely left 4th toe osteomylitis. No fever. U/A without Pyuria. Blood and wound cultures are in progress.. CRP 4.9. Currently being treated with Vancomycin, Cefepime started. 2. Acute Osteomylitis of the 4th proximal Phalanx: On exam purulent drainage from lateral aspect of 4th toe. Incision and drainage of left 4th toe today. Dr. Anita carlson. 3. Type 2 Diabetes: recommend tight glycemic control 4. DAVEY: antibiotics renally dosed 5. Penicillin Allergy: remote, fainting reaction 4 years ago, however has had penicillin recently without reaction. Plan -continue Vancomycin PK dosing -start Cefepime renally adjusted -F/u wound cultures -f/u blood cultures d/w Dr. Joann Salgado, [employer] [facility] M: [phone] O:[phone]
--- NOTE | 2018-10-12 15:33 | Progress Note ---
Assessment and Plan Assessment and plan: Osteomyelitis of the left 4th toe - Patient is on IV vancomycin - Gen. surgery and ID consulted Acute renal failure likely due to vasomotor nephropathy - No baseline creatinine - Nephrology consulted Leukocytosis - Due to the above Diabetes mellitus - Continue ADA diet, , accu-check DVT prophylaxis - SCDs - Patient may need surgery, will put him on chemical prophylaxis after that. History Interval history: Patient was seen and evaluated this morning, patient is complaining of pain in the left foot. Hospitalist Physical - Physical exam Narrative exam: Not in cardiopulmonary distress. The patient appeared well nourished and normally developed. Vital signs as documented. Head exam is unremarkable. No scleral icterus . Neck is without jugular venous distension, thyromegaly, or carotid bruits. Lungs are clear to auscultation. Cardiac exam reveals regular rate and Rhythm. First and second heart sounds normal. No murmurs, rubs or gallops. Abdominal exam reveals normal bowel sounds, no masses, no organomegaly and no aortic enlargement. Extremities left 4th toe ulcer and darkish discoloration. 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 No focal weakness. - Constitutional Vitals: Temp Pulse Resp BP Pulse Ox 98.5 F 88 14 125/73 98 10/12/18 07:28 10/12/18 15:00 10/12/18 07:28 10/12/18 07:28 10/12/18 07:28 Results - Labs CBC & Chem 7: 10/11/18 20:17 10/12/18 06:31 Labs: Laboratory Last Values WBC 14.3 K/mm3 (4.5-11.0) H 10/11/18 20:17 RBC 2.94 M/mm3 (3.65-5.03) L 10/11/18 20:17 Hgb 9.3 gm/dl (11.8-15.2) L 10/11/18 20:17 Hct 26.7 % (35.5-45.6) L 10/11/18 20:17 MCV 91 fl (84-94) 10/11/18 20:17 MCH 31 pg (28-32) 10/11/18 20:17 MCHC 35 % (32-34) H 10/11/18 20:17 RDW 13.1 % (13.2-15.2) L 10/11/18 20:17 Plt Count 309 K/mm3 (140-440) 10/11/18 20:17 Lymph % (Auto) 7.0 % (13.4-35.0) L 10/11/18 20:17 [place] % (Auto) 10.2 % (0.0-7.3) H 10/11/18 20:17 Eos % (Auto) 0.1 % (0.0-4.3) 10/11/18 20:17 Baso % (Auto) 0.2 % (0.0-1.8) 10/11/18 20:17 Lymph # 1.0 K/mm3 (1.2-5.4) L 10/11/18 20:17 [place] # 1.5 K/mm3 (0.0-0.8) H 10/11/18 20:17 Eos # 0.0 K/mm3 (0.0-0.4) 10/11/18 20:17 Baso # 0.0 K/mm3 (0.0-0.1) 10/11/18 20:17 Seg Neutrophils % 82.5 % (40.0-70.0) H 10/11/18 20:17 Seg Neutrophils # 11.8 K/mm3 (1.8-7.7) H 10/11/18 20:17 ESR 140 mm/Hr (0-20) 10/11/18 21:05 Sodium 141 mmol/L (137-145) D 10/12/18 06:31 Potassium 4.2 mmol/L (3.6-5.0) D 10/12/18 06:31 Chloride 105.8 mmol/L (98-107) 10/12/18 06:31 Carbon Dioxide 24 mmol/L (22-30) 10/12/18 06:31 Anion Gap 15 mmol/L 10/12/18 06:31 BUN 59 mg/dL (9-20) H 10/12/18 06:31 Creatinine 3.7 mg/dL (0.8-1.5) H 10/12/18 06:31 Estimated GFR 18 ml/min 10/12/18 06:31 BUN/Creatinine Ratio 16 % 10/12/18 06:31 Glucose 163 mg/dL (75-100) H 10/12/18 06:31 POC Glucose 246 (70-105) H 10/12/18 12:09 Lactic Acid 0.70 mmol/L (0.7-2.0) 10/11/18 21:05 Calcium 8.3 mg/dL (8.4-10.2) L 10/12/18 06:31 Total Bilirubin 0.20 mg/dL (0.1-1.2) 10/11/18 20:17 Direct Bilirubin < 0.2 mg/dL (0-0.2) 10/11/18 20:17 Indirect Bilirubin 0.0 mg/dL 10/11/18 20:17 AST 21 units/L (5-40) 10/11/18 20:17 ALT 18 units/L (7-56) 10/11/18 20:17 Alkaline Phosphatase 92 units/L (35-129) 10/11/18 20:17 C-Reactive Protein 4.90 mg/dL (0.00-1.30) H 10/11/18 21:05 Total Protein 7.4 g/dL (6.3-8.2) 10/11/18 20:17 Albumin 4.0 g/dL (3.9-5) 10/11/18 20:17 Albumin/Globulin Ratio 1.2 % 10/11/18 20:17 Urine Color Yellow (Yellow) 10/11/18 21:20 Urine Turbidity Slightly-cloudy (Clear) 10/11/18 21:20 Urine pH 5.0 (5.0-7.0) 10/11/18 21:20 Ur Specific [place] 1.011 (1.003-1.030) 10/11/18 21:20 Urine Protein 100 mg/dl mg/dL (Negative) 10/11/18 21:20 Urine Glucose (UA) Neg mg/dL (Negative) 10/11/18 21:20 Urine Ketones Tr mg/dL (Negative) 10/11/18 21:20 Urine Blood Sm (Negative) 10/11/18 21:20 Urine Nitrite Neg (Negative) 10/11/18 21:20 Urine Bilirubin Neg (Negative) 10/11/18 21:20 Urine Urobilinogen < 2.0 mg/dL (<2.0) 10/11/18 21:20 Ur Leukocyte Esterase Neg (Negative) 10/11/18 21:20 Urine WBC (Auto) 2.0 /HPF (0.0-6.0) 10/11/18 21:20 Urine RBC (Auto) 6.0 /HPF (0.0-6.0) 10/11/18 21:20 U Epithel Cells (Auto) < 1.0 /HPF (0-13.0) 10/11/18 21:20 Hyaline Casts 1 /LPF 10/11/18 21:20 Urine Mucus Few /HPF 10/11/18 21:20 Urine Yeast (Budding) Few /HPF 10/11/18 21:20 Urine Sperm Few /HPF (TRANSFER CONTROLLER) 10/11/18 21:20 Active Medications - Current Medications Current Medications: Generic Name Dose Route Start Last Admin Trade Name Freq PRN Reason Stop Dose Admin Acetaminophen 650 mg 10/12/18 00:25 Tylenol ND Q4H PRN Fever >101 Dextrose 50 ml 10/12/18 00:26 D50w (25gm) Syringe IV PRN PRN Hypoglycemia Insulin Human Regular 0 units 10/12/18 07:30 10/12/18 08:00 Humulin R SUB-Q 1 units AC JOSÉ ANTONIO Administration Protocol Insulin Human Regular 0 units 10/12/18 22:00 Humulin R SUB-Q QHS JOSÉ ANTONIO Protocol Lidocaine 20 ml 10/12/18 09:10 Xylocaine 1% 20 Ml INFILTRATI 10/12/18 16:00 ONCE NR Morphine Sulfate 2 mg 10/12/18 00:23 Morphine IV Q4H PRN Pain, Moderate (4-6) Ondansetron HCl 4 mg 10/12/18 00:24 Zofran IV Q8H PRN Nausea And Vomiting
[2018-10-12] MEDS ORDERED: MAXIPIME/NS 2 GM/100 ML 2 GM/100 ML BAG IV SCH (16:00)
--- NOTE | 2018-10-12 17:37 | Consultation ---
History of Present Illness - Reason for Consult Consult date: 10/12/18 acute renal failure Requesting physician: PAULA WHEELER - History of Present Illness This is a 48yo M with past medical history of T2DM, hypertension, who presents to [facility] ER with complaints of L foot pain for > 1 week along with swelling and discoloration. Pt also reported fever, chills, nausea, vomiting, generalized fatigue. Labs showed elevated WBC > 14, along with elevate CRP, Foot XR showed evidence of osteomyelitis of 4th proximal phalanx and pt was admitted for IV ABX treatment and further surgical evaluation. Labs also showed elevated BUN/Cr at 72/4.6mg/dl along with hyperkalemia with K of 6.4 and mild hyponatremia, for which renal consult is requested. Pt reports that he was told to have some kidney dysfunction when he last followed up with his PCP at [facility], however not able to give details of his renal disease. Pt denies recent NSAIDs use of IV contrast exposure. based on available chart at [facility], pt's Cr in 2014 was 1.0-1.1mg/dl. Past History Past Medical History: diabetes, hypertension Past Surgical History: No surgical history, Other (has had EGD and C-scope) Social history: denies: smoking, alcohol abuse, prescription drug abuse, IV drug use Family history: no significant family history Medications and Allergies Allergies Allergy/AdvReac Type Severity Reaction Status Date / Time Penicillins Allergy Dizziness Verified 12/26/14 02:05 Home Medications Medication Instructions Recorded Confirmed Last Taken Type cephALEXin [Keflex] 500 mg PO Q8H #15 capsule 12/26/14 Unknown Rx Sulfamethoxazole/Trimethoprim 1 each PO BID #20 tablet 01/06/15 Unknown Rx [Bactrim Ds] metFORMIN [Glucophage] 1,000 mg PO BID #60 tablet 01/06/15 Unknown Rx Active Meds: Active Medications Acetaminophen (Tylenol) 650 mg [place] Q4H PRN PRN Reason: Fever >101 Dextrose (D50w (25gm) Syringe) 50 ml IV PRN PRN PRN Reason: Hypoglycemia Cefepime HCl (Maxipime/Ns 1 Gm/100 Ml) 1 gm in 100 mls @ 200 mls/hr IV Q12H JOSÉ ANTONIO Insulin Human Regular (Humulin R) 0 units SUB-Q AC JOSÉ ANTONIO; Protocol Last Admin: 10/12/18 08:00 Dose: 1 units Documented by: Insulin Human Regular (Humulin R) 0 units SUB-Q QHS JOSÉ ANTONIO; Protocol Morphine Sulfate (Morphine) 2 mg IV Q4H PRN PRN Reason: Pain, Moderate (4-6) Ondansetron HCl (Zofran) 4 mg IV Q8H PRN PRN Reason: Nausea And Vomiting Review of Systems All systems: negative Constitutional: fever, chills, fatigue, weakness Exam - Vital Signs Vital signs: Vital Signs Temp Pulse Resp BP 98.7 F 85 18 140/81 10/11/18 20:01 10/11/18 20:01 10/11/18 20:01 10/11/18 20:01 - General Appearance General appearance: well-developed, appears stated age EENT: ATNC, PERRL, mucous membranes moist Neck: Present: neck supple Respiratory: Clear to Ascultation Heart: regular, S1S2 Gastrointestinal: Present: normal Integumentary: no rash, other (misbah, erythema, tenderness, at L foot, +purulent fluid draining from lateral aspect of 4th toe) Neurologic: no focal deficit, alert and oriented x3, CN 3-12 intact Psychiatric: mood/affect appropriate, cooperative Results - Lab Results 10/11/18 20:17 10/12/18 06:31 Most recent lab results Calcium 8.3 mg/dL (8.4-10.2) L 10/12/18 06:31 Laboratory Tests 10/11/18 10/11/18 10/11/18 20:17 21:05 21:20 Indirect Bilirubin 0.0 AST 21 ALT 18 Alkaline Phosphatase 92 C-Reactive Protein 4.90 H Total Protein 7.4 Albumin 4.0 Albumin/Globulin Ratio 1.2 Urine Color Yellow Urine Turbidity Slightly-cloudy Urine pH 5.0 Ur Specific [place] 1.011 Urine Protein 100 mg/dl Urine Glucose (UA) Neg Urine Ketones Tr Urine Blood Sm Urine Nitrite Neg Urine Bilirubin Neg Urine Urobilinogen < 2.0 Ur Leukocyte Esterase Neg Urine WBC (Auto) 2.0 Urine RBC (Auto) 6.0 U Epithel Cells (Auto) < 1.0 Hyaline Casts 1 Urine Mucus Few Urine Yeast (Budding) Few Urine Sperm Few Assessment and Plan - Patient Problems (1) DAVEY (acute kidney injury) Current Visit: Yes Status: Acute Plan to address problem: DAVEY most likely secondary to pre-renal azotemia in the setting of L foot cellulitis/osteomyelitis. pt also with h/o n/v. check urine lytes to assess FeNA, check urine protein/Cr ratio. post infectious GN to be ruled out, will check C3/4 for now. If renal function does not improve with IVF and IV ABX treatment will need to consider renal biopsy. obtain renal US. avoid nephrotoxins, NSAIDs, IV contrast. (2) Hyponatremia Current Visit: Yes Status: Acute Plan to address problem: likely hypovolemic in nature, improved s/p IV NS bolus (3) Type 2 diabetes mellitus with diabetic chronic kidney disease Current Visit: Yes Status: Acute Plan to address problem: glucose control as per primary attending (4) Cellulitis of foot, left Current Visit: Yes Status: Acute Plan to address problem: cont IV ABX as per ID. s/p I&D today (5) Hyperkalemia Current Visit: Yes Status: Acute Plan to address problem: likely secondary to decreased distal tubular Na delivery. improved with medical treatment and IV NS boluses. cont 2g K renal diet (6) Anemia in chronic illness Current Visit: Yes Status: Acute Plan to address problem: check iron store/ferritin level
[2018-10-12] MEDS: MAXIPIME/NS 1 GM/100 ML 1 GM/100 ML BAG IV SCH (17:42)
[2018-10-12 19:50] LABS: Creatinine,Urine 112.2 mg/dL (0.1-20.0)
--- NOTE | 2018-10-12 22:25 | Ultrasound Report ---
PROCEDURE: US RENAL BILAT TECHNIQUE: Real-time sonography in multiple planes of the kidneys, ureters and urinary bladder was p erformed with image documentation. HISTORY: DAVEY COMPARISONS: None . FINDINGS: RIGHT kidney: Diffusely increased in parenchymal echotexture is noted. No focal renal mass, calculus, or hydronephrosis. Length: 11.4 x 5.3 x 6.3 cm. LEFT kidney: Diffusely increased parenchymal echotexture is noted. No focal renal mass, calculus, or hydronephrosis. Length: 11.9 x 6.3 x 7.0 cm. Bladder: Minimally distended and its hughes appear mildly thickened IMPRESSION: Diffusely increased renal parenchymal consistent with acute medical renal disease. Thickened urinary bladder hughes are most likely secondary to lack of distention. Clinical correlation is recommended to rule out cystitis.. This document is electronically signed by Tl Barber MD., October 12 2018 10:23:02 PM ET
[2018-10-13] MEDS: MAXIPIME/NS 1 GM/100 ML 1 GM/100 ML BAG IV SCH (04:01)
[2018-10-13 05:51] LABS: Basophils % (Auto) 0.4 % (0.0-1.8); Eosinophils # (Auto) 0.1 K/mm3 (0.0-0.4); Eosinophils % (Auto) 0.9 % (0.0-4.3); Hemoglobin 7.6 gm/dl (11.8-15.2); Lymphocytes # (Auto) 1.1 K/mm3 (1.2-5.4); Lymphocytes % (Auto) 12.6 % (13.4-35.0); Mean Corpuscular HGB Conc 34 % (32-34); Mean Corpuscular Volume 91 fl (84-94); Monocytes % (Auto) 11.8 % (0.0-7.3); Platelet Count 257 K/mm3 (140-440); Red Blood Count 2.43 M/mm3 (3.65-5.03); Red Cell Distribution Width 12.4 % (13.2-15.2)
[2018-10-13 06:00] LABS: Calcium 7.8 mg/dL (8.4-10.2)
[2018-10-13] MEDS: HumuLIN R SUB-Q SCH ×4 (07:30→21:30)
[2018-10-13] MEDS ORDERED: VANCOMYCIN/NS 1 GM/250 ML 1 GM/250 ML BAG IV ONE (10:00)
[2018-10-13] MEDS ORDERED: MAXIPIME/NS 2 GM/100 ML 2 GM/100 ML BAG IV SCH (10:00)
--- NOTE | 2018-10-13 10:28 | Progress Note ---
Assessment and Plan 10/11/2018 Foot Xray: Findings are consistent with acute osteomyelitis involving the fourth proximal phalanx. Cultures: 10/11/2018 Blood: no growth in 24 hours 10/11/2018 Left Foot: no growth 10/12/2018 Left Third toe:Beta Hemolytic Strep Group B 10/12/2018: Left foot: Beta Hemolytic Strep Group B 48 year old male with a past medical history of diabetes and hypertension, that presents in the ED on 10/11/18 with complaints of left foot pain for 1 week. He stated that he started to notice that the 4th toe was getting darker in appearance and started to swell and cause pain. He report chills, nausea and vomiting. Admitted with: 1. Leukocytosis on admission: etiology most likely left 4th toe osteomylitis. No fever. U/A without Pyuria. Blood cultures show no growth to date. Wound cultures grew Beta Hemolytic Strep group B. CRP 4.9. Discontinue Vancomycin and Cefepime. Start Ceftriaxone. 2. Acute Osteomylitis of the 4th proximal Phalanx: Wound cultures grew Beta hemolytic strep group B. On exam purulent drainage from lateral aspect of 4th toe. s/p I & D of left 4th toe 10/12/18. .Dr. Howard following. 3. Type 2 Diabetes: recommend tight glycemic control 4. DAVEY: antibiotics renally dosed 5. Penicillin Allergy: remote, fainting reaction 4 years ago, however has had penicillin recently without reaction. Plan -Discontinue Vancomycin PK dosing -Discontinue Cefepime renally adjusted -Start Ceftriaxone 2gms IV every 24 hours -Anticipate discharge on Ceftriaxone 2gms IV every 24 hours for 4 weeks ending 11-10-18 -F/u wound cultures ID and CHERELLE's -f/u blood cultures -f/u deep surgical cultures Dr. Guallpa will be impression printer on Tuesday [phone], Dr. David will be making rounds on Tuesday [phone], please call for questions. [facility] M: [phone] O:[phone] Subjective Date of service: 10/13/18 Objective - Constitutional Vitals: Vital Signs Temp Pulse Resp BP Pulse Ox 98.2 F 70 18 135/73 98 10/13/18 08:43 10/13/18 08:43 10/13/18 08:43 10/13/18 08:43 10/13/18 08:43 Temperature -Last 24 Hours Temperature 98.2 F Temperature 98.4 F Temperature 99.3 F Temperature 98.6 F Temperature 98.6 F - Labs CBC & Chem 7: 10/13/18 05:25 10/13/18 05:25 Labs: Abnormal lab results 10/12/18 10/12/18 10/12/18 Range/Units 12:09 13:09 16:08 RBC (3.65-5.03) M/mm3 Hgb (11.8-15.2) gm/dl Hct (35.5-45.6) % RDW (13.2-15.2) % Lymph % (Auto) (13.4-35.0) % [place] % (Auto) (0.0-7.3) % Lymph # (1.2-5.4) K/mm3 [place] # (0.0-0.8) K/mm3 Seg Neutrophils % (40.0-70.0) % Chloride (98-107) mmol/L Carbon Dioxide (22-30) mmol/L BUN (9-20) mg/dL Creatinine (0.8-1.5) mg/dL Glucose (75-100) mg/dL POC Glucose 246 H 164 H (70-105) Calcium (8.4-10.2) mg/dL Urine Creatinine 112.2 H (0.1-20.0) mg/dL Urine Total Protein 180 H (5-11.8) mg/dL 10/12/18 10/13/18 10/13/18 Range/Units 21:05 00:22 05:25 RBC 2.43 L (3.65-5.03) M/mm3 Hgb 7.6 L (11.8-15.2) gm/dl Hct 22.0 L (35.5-45.6) % RDW 12.4 L (13.2-15.2) % Lymph % (Auto) 12.6 L (13.4-35.0) % [place] % (Auto) 11.8 H (0.0-7.3) % Lymph # 1.1 L (1.2-5.4) K/mm3 [place] # 1.0 H (0.0-0.8) K/mm3 Seg Neutrophils % 74.3 H (40.0-70.0) % Chloride 108.3 H (98-107) mmol/L Carbon Dioxide 21 L (22-30) mmol/L BUN 44 H (9-20) mg/dL Creatinine 3.5 H (0.8-1.5) mg/dL Glucose 154 H (75-100) mg/dL POC Glucose 186 H (70-105) Calcium 8.0 L (8.4-10.2) mg/dL Urine Creatinine (0.1-20.0) mg/dL Urine Total Protein (5-11.8) mg/dL 10/13/18 Range/Units 05:25 RBC (3.65-5.03) M/mm3 Hgb (11.8-15.2) gm/dl Hct (35.5-45.6) % RDW (13.2-15.2) % Lymph % (Auto) (13.4-35.0) % [place] % (Auto) (0.0-7.3) % Lymph # (1.2-5.4) K/mm3 [place] # (0.0-0.8) K/mm3 Seg Neutrophils % (40.0-70.0) % Chloride (98-107) mmol/L Carbon Dioxide (22-30) mmol/L BUN 42 H (9-20) mg/dL Creatinine 3.5 H (0.8-1.5) mg/dL Glucose 168 H (75-100) mg/dL POC Glucose (70-105) Calcium 7.8 L (8.4-10.2) mg/dL Urine Creatinine (0.1-20.0) mg/dL Urine Total Protein (5-11.8) mg/dL
--- NOTE | 2018-10-13 10:59 | Progress Note ---
Assessment and Plan - Patient Problems (1) DAVEY (acute kidney injury) Current Visit: Yes Status: Acute Plan to address problem: DAVEY most likely secondary to pre-renal azotemia in the setting of L foot cellulitis/osteomyelitis. pt also with h/o n/v. renal US shows e/o echogenic kidneys bilaterally consistent with CKD. urine protein/Cr ration ~1.5g/g, p ossibly due to underlying diabetic nephropathy. post infectious GN to be ruled out, will check C3/4. If renal function continues to decline despite IVF and IV ABX treatment will need to consider renal biopsy. avoid nephrotoxins, NSAIDs, IV contrast. (2) Hyponatremia Current Visit: Yes Status: Acute Plan to address problem: likely hypovolemic in nature, improved s/p IV NS bolus (3) Type 2 diabetes mellitus with diabetic chronic kidney disease Current Visit: Yes Status: Acute Plan to address problem: glucose control as per primary attending (4) Cellulitis of foot, left Current Visit: Yes Status: Acute Plan to address problem: cont IV ABX as per ID. s/p I&D today (5) Hyperkalemia Current Visit: Yes Status: Acute Plan to address problem: likely secondary to decreased distal tubular Na delivery. improved with medical treatment and IV NS boluses. cont 2g K renal diet (6) Anemia in chronic illness Current Visit: Yes Status: Acute Plan to address problem: check iron store/ferritin level Subjective Date of service: 10/13/18 Principal diagnosis: DAVEY on CKD Interval history: Pt awake, alert, in NAD. denies fever, chills, n/v/d Objective - Vital Signs Vital signs: Vital Signs - 12hr 10/12/18 10/12/18 10/13/18 23:17 23:33 03:34 Temperature 99.3 F 98.4 F Pulse Rate 77 78 78 Respiratory 12 12 Rate Blood Pressure 116/65 122/66 O2 Sat by Pulse 97 98 Oximetry 10/13/18 10/13/18 07:00 08:43 Temperature 98.2 F Pulse Rate 82 70 Respiratory 18 Rate Blood Pressure 135/73 O2 Sat by Pulse 98 Oximetry - General Appearance General appearance: well-developed, well-nourished, appears stated age EENT: ATNC, PERRL, mucous membranes moist Neck: no JVD Respiratory: Present: Clear to Ascultation Cardiology: regular, S1S2 Gastrointestinal: normoactive bowel sounds Integumentary: no rash, other (no edema ) Neurologic: no focal deficit, alert and oriented x3, strength 5/5, CN 3-12 intact Psychiatric: mood/affect appropriate, cooperative - Lab 10/13/18 05:25 10/13/18 05:25 Most recent lab results Calcium 7.8 mg/dL (8.4-10.2) L 10/13/18 05:25 Urine Creatinine 112.2 mg/dL (0.1-20.0) H 10/12/18 13:09 Urine Sodium 56 mmol/L 10/12/18 13:09 Urine Total Protein 180 mg/dL (5-11.8) H 10/12/18 13:09 Medications & Allergies - Medications Allergies/Adverse Reactions: Allergies Penicillins Allergy (Verified 12/26/14 02:05) Dizziness Home Medications: Home Medications Medication Instructions Recorded Confirmed Last Taken Type Gabapentin [Neurontin] 100 mg PO QA 10/12/18 10/12/18 Unknown History Metoprolol [Lopressor] 25 mg PO QA 10/12/18 10/12/18 Unknown History Pioglitazone HCl 15 mg PO QAM 10/12/18 10/12/18 Unknown History Active Medications: Generic Name Dose Route Start Last Admin Trade Name Freq PRN Reason Stop Dose Admin Acetaminophen 650 mg 10/12/18 00:25 Tylenol [place] Q4H PRN Fever >101 Dextrose 50 ml 10/12/18 00:26 D50w (25gm) Syringe IV PRN PRN Hypoglycemia Cefepime HCl 2 gm in 100 mls @ 200 mls/hr 10/13/18 10:00 Maxipime/Ns 2 Gm/100 Ml IV Q24HR JOSÉ ANTONIO Protocol Vancomycin HCl 1 gm in 250 mls @ 167.007 mls/hr 10/13/18 10:00 Vancomycin/Ns 1 Gm/250 Ml IV 10/13/18 11:29 ONCE ONE Insulin Human Regular 0 units 10/12/18 07:30 10/12/18 17:00 Humulin R SUB-Q 1 units AC JOSÉ ANTONIO Administration Protocol Insulin Human Regular 0 units 10/12/18 22:00 10/12/18 22:50 Humulin R SUB-Q 1 units QHS [facility] Administration Protocol Morphine Sulfate 2 mg 10/12/18 00:23 Morphine IV Q4H PRN Pain, Moderate (4-6) Ondansetron HCl 4 mg 10/12/18 00:24 Zofran IV Q8H PRN Nausea And Vomiting
--- NOTE | 2018-10-13 13:09 | Progress Note ---
Assessment and Plan Assessment and plan: Osteomyelitis of the left 4th toe - Patient is on IV vancomycin - Gen. surgery consulted and did incision and drainage yesterday - ID is on board Acute renal failure likely due to vasomotor nephropathy - No baseline creatinine - Nephrology is following Leukocytosis - Due to the above - Resolved Diabetes mellitus - Continue ADA diet, , accu-check Anemia - We'll do anemia workup DVT prophylaxis - Heparin Disposition - Continue inpatient care History Interval history: Patient was seen and evaluated this morning, patient didn't have any complaints. Hospitalist Physical - Physical exam Narrative exam: Not in cardiopulmonary distress. The patient appeared well nourished and normally developed. Vital signs as documented. Head exam is unremarkable. No scleral icterus . Neck is without jugular venous distension, thyromegaly, or carotid bruits. Lungs are clear to auscultation. Cardiac exam reveals regular rate and Rhythm. First and second heart sounds normal. No murmurs, rubs or gallops. Abdominal exam reveals normal bowel sounds, no masses, no organomegaly and no aortic enlargement. Extremities left 4th toe ulcer and darkish discoloration. GROUND HAND: Alert and oriented 3. No focal weakness. - Constitutional Vitals: Temp Pulse Resp BP Pulse Ox 97.8 F 68 18 143/73 100 10/13/18 11:37 10/13/18 11:37 10/13/18 11:37 10/13/18 11:37 10/13/18 11:37 Results - Labs CBC & Chem 7: 10/13/18 05:25 10/13/18 05:25 Labs: Laboratory Last Values WBC 8.8 K/mm3 (4.5-11.0) 10/13/18 05:25 RBC 2.43 M/mm3 (3.65-5.03) L 10/13/18 05:25 Hgb 7.6 gm/dl (11.8-15.2) L 10/13/18 05:25 Hct 22.0 % (35.5-45.6) L 10/13/18 05:25 MCV 91 fl (84-94) 10/13/18 05:25 MCH 31 pg (28-32) 10/13/18 05:25 MCHC 34 % (32-34) 10/13/18 05:25 RDW 12.4 % (13.2-15.2) L 10/13/18 05:25 Plt Count 257 K/mm3 (140-440) 10/13/18 05:25 Lymph % (Auto) 12.6 % (13.4-35.0) L 10/13/18 05:25 [place] % (Auto) 11.8 % (0.0-7.3) H 10/13/18 05:25 Eos % (Auto) 0.9 % (0.0-4.3) 10/13/18 05:25 Baso % (Auto) 0.4 % (0.0-1.8) 10/13/18 05:25 Lymph # 1.1 K/mm3 (1.2-5.4) L 10/13/18 05:25 [place] # 1.0 K/mm3 (0.0-0.8) H 10/13/18 05:25 Eos # 0.1 K/mm3 (0.0-0.4) 10/13/18 05:25 Baso # 0.0 K/mm3 (0.0-0.1) 10/13/18 05:25 Seg Neutrophils % 74.3 % (40.0-70.0) H 10/13/18 05:25 Seg Neutrophils # 6.5 K/mm3 (1.8-7.7) 10/13/18 05:25 ESR 140 mm/Hr (0-20) 10/11/18 21:05 Sodium 141 mmol/L (137-145) 10/13/18 05:25 Potassium 4.2 mmol/L (3.6-5.0) 10/13/18 05:25 Chloride 106.6 mmol/L (98-107) 10/13/18 05:25 Carbon Dioxide 24 mmol/L (22-30) 10/13/18 05:25 Anion Gap 15 mmol/L 10/13/18 05:25 BUN 42 mg/dL (9-20) H 10/13/18 05:25 Creatinine 3.5 mg/dL (0.8-1.5) H 10/13/18 05:25 Estimated GFR 19 ml/min 10/13/18 05:25 BUN/Creatinine Ratio 12 % 10/13/18 05:25 Glucose 168 mg/dL (75-100) H 10/13/18 05:25 POC Glucose 131 (70-105) H 10/13/18 08:51 Lactic Acid 0.70 mmol/L (0.7-2.0) 10/11/18 21:05 Calcium 7.8 mg/dL (8.4-10.2) L 10/13/18 05:25 Total Bilirubin 0.20 mg/dL (0.1-1.2) 10/11/18 20:17 Direct Bilirubin < 0.2 mg/dL (0-0.2) 10/11/18 20:17 Indirect Bilirubin 0.0 mg/dL 10/11/18 20:17 AST 21 units/L (5-40) 10/11/18 20:17 ALT 18 units/L (7-56) 10/11/18 20:17 Alkaline Phosphatase 92 units/L (35-129) 10/11/18 20:17 C-Reactive Protein 4.90 mg/dL (0.00-1.30) H 10/11/18 21:05 Total Protein 7.4 g/dL (6.3-8.2) 10/11/18 20:17 Albumin 4.0 g/dL (3.9-5) 10/11/18 20:17 Albumin/Globulin Ratio 1.2 % 10/11/18 20:17 Urine Color Yellow (Yellow) 10/11/18 21:20 Urine Turbidity Slightly-cloudy (Clear) 10/11/18 21:20 Urine pH 5.0 (5.0-7.0) 10/11/18 21:20 Ur Specific [place] 1.011 (1.003-1.030) 10/11/18 21:20 Urine Protein 100 mg/dl mg/dL (Negative) 10/11/18 21:20 Urine Glucose (UA) Neg mg/dL (Negative) 10/11/18 21:20 Urine Ketones Tr mg/dL (Negative) 10/11/18 21:20 Urine Blood Sm (Negative) 10/11/18 21:20 Urine Nitrite Neg (Negative) 10/11/18 21:20 Urine Bilirubin Neg (Negative) 10/11/18 21:20 Urine Urobilinogen < 2.0 mg/dL (<2.0) 10/11/18 21:20 Ur Leukocyte Esterase Neg (Negative) 10/11/18 21:20 Urine WBC (Auto) 2.0 /HPF (0.0-6.0) 10/11/18 21:20 Urine RBC (Auto) 6.0 /HPF (0.0-6.0) 10/11/18 21:20 U Epithel Cells (Auto) < 1.0 /HPF (0-13.0) 10/11/18 21:20 Hyaline Casts 1 /LPF 10/11/18 21:20 Urine Mucus Few /HPF 10/11/18 21:20 Urine Yeast (Budding) Few /HPF 10/11/18 21:20 Urine Sperm Few /HPF (CUT OFF SAW OPERATOR) 10/11/18 21:20 Urine Creatinine 112.2 mg/dL (0.1-20.0) H 10/12/18 13:09 Urine Sodium 56 mmol/L 10/12/18 13:09 Urine Total Protein 180 mg/dL (5-11.8) H 10/12/18 13:09 Random Vancomycin 8.6 ug/mL (0-40.0) 10/13/18 05:25 Active Medications - Current Medications Current Medications: Generic Name Dose Route Start Last Admin Trade Name Freq PRN Reason Stop Dose Admin Acetaminophen 650 mg 10/12/18 00:25 Tylenol [place] Q4H PRN Fever >101 Dextrose 50 ml 10/12/18 00:26 D50w (25gm) Syringe IV PRN PRN Hypoglycemia Ceftriaxone Sodium 2 gm in 100 mls @ 200 mls/hr 10/13/18 13:00 Rocephin/Ns 2 Gm/100 Ml IV Q24HR JOSÉ ANTONIO Protocol Insulin Human Regular 0 units 10/12/18 07:30 10/12/18 17:00 Humulin R SUB-Q 1 units AC JOSÉ ANTONIO Administration Protocol Insulin Human Regular 0 units 10/12/18 22:00 10/12/18 22:50 Humulin R SUB-Q 1 units QHS JOSÉ ANTONIO Administration Protocol Morphine Sulfate 2 mg 10/12/18 00:23 Morphine IV Q4H PRN Pain, Moderate (4-6) Ondansetron HCl 4 mg 10/12/18 00:24 Zofran IV Q8H PRN Nausea And Vomiting
[2018-10-13] MEDS: ROCEPHIN/NS 2 GM/100 ML 2 GM/100 ML BAG IV SCH (14:00)
[2018-10-13 14:38] LABS: Iron 21 ug/dL (49-181); Total Iron Binding Capacity 152 mcg/dL (250-450)
--- NOTE | 2018-10-13 17:13 | Progress Note ---
Assessment and Plan - Patient Problems (1) Cellulitis of foot, left Current Visit: Yes Status: Acute Plan to address problem: Patient stable. s/p bedside I&D of left 4th toe abscess - 10/12/18 - POD#1. Pt appears to be doing well. I will take down the dressing tomorrow. Will try to assess if OR debridement will be necessary at that time. If he does not improve after an OR intervention, it may be a very deep infection such that we may have to consider the possibility of amputation. Pt understands. The cause is probably skin trauma from the adjacent sharp toenail. Please call with questions. time=10min Subjective Date of service: 10/13/18 Patient Reports: Positive: no new complaints, feels better Objective Vital Signs - 12hr 10/13/18 10/13/18 10/13/18 07:00 08:43 10:00 Temperature 98.2 F Pulse Rate 82 70 Respiratory 18 20 Rate Blood Pressure 135/73 O2 Sat by Pulse 98 99 Oximetry 10/13/18 10/13/18 11:37 17:05 Temperature 97.8 F 98.6 F Pulse Rate 68 73 Respiratory 18 18 Rate Blood Pressure 143/73 143/81 O2 Sat by Pulse 100 100 Oximetry - General physical appearance no distress, no pain, other (looks well) - Respiratory normal expansion, normal respiratory effort - Integumentary other (dressing dry and intact on left foot) - Psychiatric oriented to time, oriented to person, oriented to place, speech is normal, memory intact - Labs 10/13/18 05:25 10/13/18 05:25 Diabetes panel 10/13/18 10/13/18 Range/Units 00:22 05:25 Sodium 145 141 (137-145) mmol/L Potassium 4.4 4.2 (3.6-5.0) mmol/L Chloride 108.3 H 106.6 (98-107) mmol/L Carbon Dioxide 21 L 24 (22-30) mmol/L BUN 44 H 42 H (9-20) mg/dL Creatinine 3.5 H 3.5 H (0.8-1.5) mg/dL Glucose 154 H 168 H (75-100) mg/dL Calcium 8.0 L 7.8 L (8.4-10.2) mg/dL Calcium panel 10/13/18 10/13/18 Range/Units 00:22 05:25 Calcium 8.0 L 7.8 L (8.4-10.2) mg/dL Pituitary panel 10/13/18 10/13/18 Range/Units 00:22 05:25 Sodium 145 141 (137-145) mmol/L Potassium 4.4 4.2 (3.6-5.0) mmol/L Chloride 108.3 H 106.6 (98-107) mmol/L Carbon Dioxide 21 L 24 (22-30) mmol/L BUN 44 H 42 H (9-20) mg/dL Creatinine 3.5 H 3.5 H (0.8-1.5) mg/dL Glucose 154 H 168 H (75-100) mg/dL Calcium 8.0 L 7.8 L (8.4-10.2) mg/dL Adrenal panel 10/13/18 10/13/18 Range/Units 00:22 05:25 Sodium 145 141 (137-145) mmol/L Potassium 4.4 4.2 (3.6-5.0) mmol/L Chloride 108.3 H 106.6 (98-107) mmol/L Carbon Dioxide 21 L 24 (22-30) mmol/L BUN 44 H 42 H (9-20) mg/dL Creatinine 3.5 H 3.5 H (0.8-1.5) mg/dL Glucose 154 H 168 H (75-100) mg/dL Calcium 8.0 L 7.8 L (8.4-10.2) mg/dL
[2018-10-13] MEDS: HEPARIN SUB-Q SCH (21:28)
--- NOTE | 2018-10-14 07:52 | Progress Note ---
Assessment and Plan - Patient Problems (1) DAVEY (acute kidney injury) Current Visit: Yes Status: Acute Plan to address problem: DAVEY most likely secondary to pre-renal azotemia in the setting of L foot cellulitis/osteomyelitis. pt also with h/o n/v. renal US shows e/o echogenic kidneys bilaterally consistent with CKD. urine protein/Cr ration ~1.5g/g, p ossibly due to underlying diabetic nephropathy. post infectious GN to be ruled out, will check C3/4. renal function stabilizing, pt without acute indication for renal replacement therapy at present. avoid nephrotoxins, NSAIDs, IV contrast. (2) Hyponatremia Current Visit: Yes Status: Acute Plan to address problem: likely hypovolemic in nature, improved s/p IV NS bolus (3) Type 2 diabetes mellitus with diabetic chronic kidney disease Current Visit: Yes Status: Acute Plan to address problem: glucose control as per primary attending (4) Cellulitis of foot, left Current Visit: Yes Status: Acute Plan to address problem: cont IV ABX as per ID. s/p I&D today (5) Hyperkalemia Current Visit: Yes Status: Acute Plan to address problem: likely secondary to decreased distal tubular Na delivery. improved with medical treatment and IV NS boluses. cont 2g K renal diet (6) Anemia in chronic illness Current Visit: Yes Status: Acute Plan to address problem: check iron store/ferritin level Subjective Date of service: 10/14/18 Principal diagnosis: DAVEY on CKD Interval history: Pt awake, alert, in NAD. denies fever, chills, n/v/d Objective - Vital Signs Vital signs: Vital Signs - 12hr 10/13/18 10/14/18 10/14/18 23:19 00:43 04:08 Temperature 98.6 F 98.2 F Pulse Rate 67 76 68 Respiratory 16 12 Rate Blood Pressure 140/77 120/72 O2 Sat by Pulse 99 99 Oximetry - General Appearance General appearance: well-developed, well-nourished, appears stated age EENT: ATNC, PERRL, mucous membranes moist Neck: no JVD Respiratory: Present: Clear to Ascultation Cardiology: regular, S1S2 Gastrointestinal: normoactive bowel sounds Integumentary: no rash, other (no edema ) Neurologic: no focal deficit, alert and oriented x3, strength 5/5, CN 3-12 intact Psychiatric: mood/affect appropriate, cooperative - Lab 10/13/18 05:25 10/13/18 05:25 Most recent lab results Calcium 7.8 mg/dL (8.4-10.2) L 10/13/18 05:25 Urine Creatinine 112.2 mg/dL (0.1-20.0) H 10/12/18 13:09 Urine Sodium 56 mmol/L 10/12/18 13:09 Urine Total Protein 180 mg/dL (5-11.8) H 10/12/18 13:09 Medications & Allergies - Medications Allergies/Adverse Reactions: Allergies Penicillins Allergy (Verified 12/26/14 02:05) Dizziness Home Medications: Home Medications Medication Instructions Recorded Confirmed Last Taken Type Gabapentin [Neurontin] 100 mg PO QA 10/12/18 10/12/18 Unknown History Metoprolol [Lopressor] 25 mg PO QA 10/12/18 10/12/18 Unknown History Pioglitazone HCl 15 mg PO QA 10/12/18 10/12/18 Unknown History Active Medications: Generic Name Dose Route Start Last Admin Trade Name Zacq PRN Reason Stop Dose Admin Acetaminophen 650 mg 10/12/18 00:25 Tylenol [place] Q4H PRN Fever >101 Dextrose 50 ml 10/12/18 00:26 D50w (25gm) Syringe IV PRN PRN Hypoglycemia Heparin Sodium (Porcine) 5,000 unit 10/13/18 22:00 10/13/18 21:28 Heparin SUB-Q 5,000 unit Q12HR JOSÉ ANTONIO Administration Ceftriaxone Sodium 2 gm in 100 mls @ 200 mls/hr 10/13/18 13:00 10/13/18 14:00 Rocephin/Ns 2 Gm/100 Ml IV 11/10/18 23:59 200 mls/hr Q24HR JOSÉ ANTONIO Administration Protocol Insulin Human Regular 0 units 10/12/18 07:30 10/13/18 18:14 Humulin R SUB-Q 1 units AC JOSÉ ANTONIO Administration Protocol Insulin Human Regular 0 units 10/12/18 22:00 10/13/18 21:30 Humulin R SUB-Q Not Given QHS JOSÉ ANTONIO Protocol Morphine Sulfate 2 mg 10/12/18 00:23 Morphine IV Q4H PRN Pain, Moderate (4-6) Ondansetron HCl 4 mg 10/12/18 00:24 Zofran IV Q8H PRN Nausea And Vomiting
[2018-10-14] MEDS: HumuLIN R SUB-Q SCH ×4 (08:08→22:00)
[2018-10-14] MEDS: ROCEPHIN/NS 2 GM/100 ML 2 GM/100 ML BAG IV SCH (11:16)
[2018-10-14] MEDS: HEPARIN SUB-Q SCH ×2 (11:16→21:33)
--- NOTE | 2018-10-14 12:52 | Progress Note ---
Assessment and Plan Assessment and plan: Osteomyelitis of the left 4th toe - Patient was on IV vancomycin and cefepime and switched to rocephin and will be discharged with it for 4 weeks - Gen. surgery consulted and did incision and drainage yesterday - ID is on board Acute renal failure likely due to vasomotor nephropathy - Nephrology is following Leukocytosis - Due to the above - Resolved Diabetes mellitus - Continue ADA diet, , accu-check Anemia - We'll do anemia workup DVT prophylaxis - Heparin Disposition; patient is unfunded and needs 4 weeks of IV antibiotics. Case management aware and will be discharged once arranged. History Interval history: Patient was seen and evaluated this morning, patient didn't have any complaints. Hospitalist Physical - Physical exam Narrative exam: Not in cardiopulmonary distress. The patient appeared well nourished and normally developed. Vital signs as documented. Head exam is unremarkable. No scleral icterus . Neck is without jugular venous distension, thyromegaly, or carotid bruits. Lungs are clear to auscultation. Cardiac exam reveals regular rate and Rhythm. First and second heart sounds normal. No murmurs, rubs or gallops. Abdominal exam reveals normal bowel sounds, no masses, no organomegaly and no aortic enlargement. Extremities left 4th toe ulcer and darkish discoloration. 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 No focal weakness. - Constitutional Vitals: Temp Pulse Resp BP Pulse Ox 97.8 F 68 18 125/69 99 10/14/18 07:52 10/14/18 04:08 10/14/18 07:52 10/14/18 07:52 10/14/18 04:08 Results - Labs CBC & Chem 7: 10/13/18 05:25 10/13/18 05:25 Labs: Laboratory Last Values WBC 8.8 K/mm3 (4.5-11.0) 10/13/18 05:25 RBC 2.43 M/mm3 (3.65-5.03) L 10/13/18 05:25 Hgb 7.6 gm/dl (11.8-15.2) L 10/13/18 05:25 Hct 22.0 % (35.5-45.6) L 10/13/18 05:25 MCV 91 fl (84-94) 10/13/18 05:25 MCH 31 pg (28-32) 10/13/18 05:25 MCHC 34 % (32-34) 10/13/18 05:25 RDW 12.4 % (13.2-15.2) L 10/13/18 05:25 Plt Count 257 K/mm3 (140-440) 10/13/18 05:25 Lymph % (Auto) 12.6 % (13.4-35.0) L 10/13/18 05:25 [place] % (Auto) 11.8 % (0.0-7.3) H 10/13/18 05:25 Eos % (Auto) 0.9 % (0.0-4.3) 10/13/18 05:25 Baso % (Auto) 0.4 % (0.0-1.8) 10/13/18 05:25 Lymph # 1.1 K/mm3 (1.2-5.4) L 10/13/18 05:25 [place] # 1.0 K/mm3 (0.0-0.8) H 10/13/18 05:25 Eos # 0.1 K/mm3 (0.0-0.4) 10/13/18 05:25 Baso # 0.0 K/mm3 (0.0-0.1) 10/13/18 05:25 Seg Neutrophils % 74.3 % (40.0-70.0) H 10/13/18 05:25 Seg Neutrophils # 6.5 K/mm3 (1.8-7.7) 10/13/18 05:25 ESR 140 mm/Hr (0-20) 10/11/18 21:05 Sodium 141 mmol/L (137-145) 10/13/18 05:25 Potassium 4.2 mmol/L (3.6-5.0) 10/13/18 05:25 Chloride 106.6 mmol/L (98-107) 10/13/18 05:25 Carbon Dioxide 24 mmol/L (22-30) 10/13/18 05:25 Anion Gap 15 mmol/L 10/13/18 05:25 BUN 42 mg/dL (9-20) H 10/13/18 05:25 Creatinine 3.5 mg/dL (0.8-1.5) H 10/13/18 05:25 Estimated GFR 19 ml/min 10/13/18 05:25 BUN/Creatinine Ratio 12 % 10/13/18 05:25 Glucose 168 mg/dL (75-100) H 10/13/18 05:25 POC Glucose 199 (70-105) H 10/14/18 11:37 Lactic Acid 0.70 mmol/L (0.7-2.0) 10/11/18 21:05 Calcium 7.8 mg/dL (8.4-10.2) L 10/13/18 05:25 Iron 21 ug/dL (49-181) L 10/13/18 13:43 TIBC 152 mcg/dL (250-450) L 10/13/18 13:43 Ferritin 270.9 ng/mL (13.0-400.0) 10/13/18 13:43 Total Bilirubin 0.20 mg/dL (0.1-1.2) 10/11/18 20:17 Direct Bilirubin < 0.2 mg/dL (0-0.2) 10/11/18 20:17 Indirect Bilirubin 0.0 mg/dL 10/11/18 20:17 AST 21 units/L (5-40) 10/11/18 20:17 ALT 18 units/L (7-56) 10/11/18 20:17 Alkaline Phosphatase 92 units/L (35-129) 10/11/18 20:17 C-Reactive Protein 4.90 mg/dL (0.00-1.30) H 10/11/18 21:05 Total Protein 7.4 g/dL (6.3-8.2) 10/11/18 20:17 Albumin 4.0 g/dL (3.9-5) 10/11/18 20:17 Albumin/Globulin Ratio 1.2 % 10/11/18 20:17 Vitamin B12 1533 pg/mL (211-911) H 10/13/18 13:43 Folate > 20 ng/mL (7.3-26.0) 10/13/18 13:43 Urine Color Yellow (Yellow) 10/11/18 21:20 Urine Turbidity Slightly-cloudy (Clear) 10/11/18 21:20 Urine pH 5.0 (5.0-7.0) 10/11/18 21:20 Ur Specific [place] 1.011 (1.003-1.030) 10/11/18 21:20 Urine Protein 100 mg/dl mg/dL (Negative) 10/11/18 21:20 Urine Glucose (UA) Neg mg/dL (Negative) 10/11/18 21:20 Urine Ketones Tr mg/dL (Negative) 10/11/18 21:20 Urine Blood Sm (Negative) 10/11/18 21:20 Urine Nitrite Neg (Negative) 10/11/18 21:20 Urine Bilirubin Neg (Negative) 10/11/18 21:20 Urine Urobilinogen < 2.0 mg/dL (<2.0) 10/11/18 21:20 Ur Leukocyte Esterase Neg (Negative) 10/11/18 21:20 Urine WBC (Auto) 2.0 /HPF (0.0-6.0) 10/11/18 21:20 Urine RBC (Auto) 6.0 /HPF (0.0-6.0) 10/11/18 21:20 U Epithel Cells (Auto) < 1.0 /HPF (0-13.0) 10/11/18 21:20 Hyaline Casts 1 /LPF 10/11/18 21:20 Urine Mucus Few /HPF 10/11/18 21:20 Urine Yeast (Budding) Few /HPF 10/11/18 21:20 Urine Sperm Few /HPF ([employer]) 10/11/18 21:20 Urine Creatinine 112.2 mg/dL (0.1-20.0) H 10/12/18 13:09 Urine Sodium 56 mmol/L 10/12/18 13:09 Urine Total Protein 180 mg/dL (5-11.8) H 10/12/18 13:09 Random Vancomycin 8.6 ug/mL (0-40.0) 10/13/18 05:25 Active Medications - Current Medications Current Medications: Generic Name Dose Route Start Last Admin Trade Name Freq PRN Reason Stop Dose Admin Acetaminophen 650 mg 10/12/18 00:25 Tylenol [place] Q4H PRN Fever >101 Dextrose 50 ml 10/12/18 00:26 D50w (25gm) Syringe IV PRN PRN Hypoglycemia Heparin Sodium (Porcine) 5,000 unit 10/13/18 22:00 10/14/18 11:16 Heparin SUB-Q 5,000 unit Q12HR JOSÉ ANTONIO Administration Ceftriaxone Sodium 2 gm in 100 mls @ 200 mls/hr 10/13/18 13:00 10/14/18 11:16 Rocephin/Ns 2 Gm/100 Ml IV 11/10/18 23:59 200 mls/hr Q24HR JOSÉ ANTONIO Administration Protocol Insulin Human Regular 0 units 10/12/18 07:30 10/14/18 12:09 Humulin R SUB-Q 1 units AC JOSÉ ANTONIO Administration Protocol Insulin Human Regular 0 units 10/12/18 22:00 10/13/18 21:30 Humulin R SUB-Q Not Given QHS [facility] Protocol Morphine Sulfate 2 mg 10/12/18 00:23 Morphine IV Q4H PRN Pain, Moderate (4-6) Ondansetron HCl 4 mg 10/12/18 00:24 Zofran IV Q8H PRN Nausea And Vomiting
--- NOTE | 2018-10-14 16:03 | Progress Note ---
Assessment and Plan - Patient Problems (1) Cellulitis of foot, left Current Visit: Yes Status: Acute Plan to address problem: Patient stable. s/p bedside I&D of left 4th toe abscess - 10/12/18 - POD#2. Pt appears to be doing well. Infection is much improved. I did open up the wound more on the proximal and distal edges just to make sure we had complete drainage. I do not find any further extension in either direction. At this time, I do not think there is any further need for operative debridement. Continue with wound care as is currently being done. When his antibiotics are arranged for home, he should follow in the wound care center. Please call with questions. time=15min Subjective Date of service: 10/14/18 Patient Reports: Positive: no new complaints, feels better Objective Vital Signs - 12hr 10/14/18 10/14/18 10/14/18 04:08 07:52 12:36 Temperature 98.2 F 97.8 F 97.3 F L Pulse Rate 68 Respiratory 12 18 18 Rate Blood Pressure 120/72 125/69 146/84 O2 Sat by Pulse 99 Oximetry 10/14/18 12:43 Temperature Pulse Rate 68 Respiratory Rate Blood Pressure O2 Sat by Pulse Oximetry - General physical appearance no distress, no pain - Respiratory normal expansion, normal respiratory effort - Integumentary other (wound is relatively clear. erythema on dorsum of foot is decreased. 4th toe swelling is less. Some additional purulent fluid noted under the proximal and distal edges. These were opened up further. No tract found extending into the midfoot.) - Psychiatric oriented to time, oriented to person, oriented to place, speech is normal - Labs 10/13/18 05:25 10/13/18 05:25
--- NOTE | 2018-10-15 07:17 | Progress Note ---
Assessment and Plan - Patient Problems (1) DAVEY (acute kidney injury) Current Visit: Yes Status: Acute Plan to address problem: DAVEY most likely secondary to pre-renal azotemia in the setting of L foot cellulitis/osteomyelitis. pt also with h/o n/v. renal US shows e/o echogenic kidneys bilaterally consistent with CKD. urine protein/Cr ration ~1.5g/g, likely secondary to underlying diabetic nephropathy. post infectious GN to be ruled out, will check C3/4. renal function stabilizing, pt without acute indication for renal replacement therapy at present. avoid nephrotoxins, NSAIDs, IV contrast. (2) Hyponatremia Current Visit: Yes Status: Acute Plan to address problem: likely hypovolemic in nature, improved s/p IV NS bolus (3) Type 2 diabetes mellitus with diabetic chronic kidney disease Current Visit: Yes Status: Acute Plan to address problem: glucose control as per primary attending (4) Cellulitis of foot, left Current Visit: Yes Status: Acute Plan to address problem: cont IV ABX as per ID. s/p I&D today (5) Hyperkalemia Current Visit: Yes Status: Acute Plan to address problem: likely secondary to decreased distal tubular Na delivery. improved with medical treatment and IV NS boluses. cont 2g K renal diet (6) Anemia in chronic illness Current Visit: Yes Status: Acute Plan to address problem: check iron store/ferritin level Subjective Date of service: 10/15/18 Principal diagnosis: DAVEY on CKD Interval history: Pt awake, alert, in NAD. denies fever, chills, n/v/d Objective - Vital Signs Vital signs: Vital Signs - 12hr 10/15/18 00:00 Pulse Rate 74 - General Appearance General appearance: well-developed, well-nourished, appears stated age EENT: ATNC, PERRL, mucous membranes moist Neck: no JVD Respiratory: Present: Clear to Ascultation Cardiology: regular, S1S2 Gastrointestinal: normoactive bowel sounds Integumentary: no rash, other (no edema, L foot dressed ) Neurologic: no focal deficit, alert and oriented x3, strength 5/5, CN 3-12 intact Psychiatric: mood/affect appropriate, cooperative - Lab 10/13/18 05:25 10/13/18 05:25 Most recent lab results Calcium 7.8 mg/dL (8.4-10.2) L 10/13/18 05:25 Urine Creatinine 112.2 mg/dL (0.1-20.0) H 10/12/18 13:09 Urine Sodium 56 mmol/L 10/12/18 13:09 Urine Total Protein 180 mg/dL (5-11.8) H 10/12/18 13:09 Medications & Allergies - Medications Allergies/Adverse Reactions: Allergies Penicillins Allergy (Verified 12/26/14 02:05) Dizziness Home Medications: Home Medications Medication Instructions Recorded Confirmed Last Taken Type Gabapentin [Neurontin] 100 mg PO QA 10/12/18 10/12/18 Unknown History Metoprolol [Lopressor] 25 mg PO QA 10/12/18 10/12/18 Unknown History Pioglitazone HCl 15 mg PO [facility] 10/12/18 10/12/18 Unknown History Active Medications: Generic Name Dose Route Start Last Admin Trade Name Freq PRN Reason Stop Dose Admin Acetaminophen 650 mg 10/12/18 00:25 Tylenol [place] Q4H PRN Fever >101 Dextrose 50 ml 10/12/18 00:26 D50w (25gm) Syringe IV PRN PRN Hypoglycemia Heparin Sodium (Porcine) 5,000 unit 10/13/18 22:00 10/14/18 21:33 Heparin SUB-Q 5,000 unit Q12HR JOSÉ ANTONIO Administration Ceftriaxone Sodium 2 gm in 100 mls @ 200 mls/hr 10/13/18 13:00 10/14/18 11:16 Rocephin/Ns 2 Gm/100 Ml IV 11/10/18 23:59 200 mls/hr Q24HR JOSÉ ANTONIO Administration Protocol Insulin Human Regular 0 units 10/12/18 07:30 10/14/18 21:33 Humulin R SUB-Q Not Given AC [facility] Protocol Insulin Human Regular 0 units 10/12/18 22:00 10/14/18 22:00 Humulin R SUB-Q Not Given QHS [facility] Protocol Morphine Sulfate 2 mg 10/12/18 00:23 Morphine IV Q4H PRN Pain, Moderate (4-6) Ondansetron HCl 4 mg 10/12/18 00:24 Zofran IV Q8H PRN Nausea And Vomiting
[2018-10-15 08:12] LABS: Calcium 7.8 mg/dL (8.4-10.2)
[2018-10-15] MEDS: HumuLIN R SUB-Q SCH ×4 (11:26→22:12)
--- NOTE | 2018-10-15 12:19 | Progress Note ---
Assessment and Plan Assessment and plan: Osteomyelitis of the left 4th toe -Status post incision and drainage - Patient was on IV vancomycin and cefepime and switched to rocephin to be completed for 4 weeks - ID is on board Acute renal failure likely due to vasomotor nephropathy -Creatinine level improving, will monitor -Nephrology is following Diabetes mellitus type 2 -Fairly controlled on SSI, will add Lantus Acute on chronic anemia -Monitor H&H and transfuse as needed -DC heparin if hemoglobin level continues to trend down Hypertension -Uncontrolled -Lopressor resumed, adjust as needed DVT prophylaxis -On Heparin Disposition; patient is unfunded and needs 4 weeks of IV antibiotics. Case management aware and will be discharged once arranged. History Interval history: Patient has no new complaints. He denies pain. Hospitalist Physical - Constitutional Vitals: Temp Pulse Resp BP Pulse Ox 97.3 F L 74 18 172/87 98 10/14/18 17:04 10/15/18 00:00 10/14/18 17:04 10/14/18 17:04 10/14/18 10:00 General appearance: Present: no acute distress - EENT Eyes: Present: PERRL, EOM intact ENT: hearing intact, clear oral mucosa - Neck Neck: Present: supple - Respiratory Respiratory effort: normal Respiratory: bilateral: CTA - Cardiovascular Rhythm: regular Heart Sounds: Present: S1 & S2 - Extremities Extremity abnormal: other (dressing over LT foot noted) - Abdominal General gastrointestinal: soft, non-tender, non-distended, normal bowel sounds - Neurologic Neurologic: CNII-XII intact Results - Labs CBC & Chem 7: 10/13/18 05:25 10/15/18 07:15 Labs: Laboratory Last Values WBC 8.8 K/mm3 (4.5-11.0) 10/13/18 05:25 RBC 2.43 M/mm3 (3.65-5.03) L 10/13/18 05:25 Hgb 7.6 gm/dl (11.8-15.2) L 10/13/18 05:25 Hct 22.0 % (35.5-45.6) L 10/13/18 05:25 MCV 91 fl (84-94) 10/13/18 05:25 MCH 31 pg (28-32) 10/13/18 05:25 MCHC 34 % (32-34) 10/13/18 05:25 RDW 12.4 % (13.2-15.2) L 10/13/18 05:25 Plt Count 257 K/mm3 (140-440) 10/13/18 05:25 Lymph % (Auto) 12.6 % (13.4-35.0) L 10/13/18 05:25 [place] % (Auto) 11.8 % (0.0-7.3) H 10/13/18 05:25 Eos % (Auto) 0.9 % (0.0-4.3) 10/13/18 05:25 Baso % (Auto) 0.4 % (0.0-1.8) 10/13/18 05:25 Lymph # 1.1 K/mm3 (1.2-5.4) L 10/13/18 05:25 [place] # 1.0 K/mm3 (0.0-0.8) H 10/13/18 05:25 Eos # 0.1 K/mm3 (0.0-0.4) 10/13/18 05:25 Baso # 0.0 K/mm3 (0.0-0.1) 10/13/18 05:25 Seg Neutrophils % 74.3 % (40.0-70.0) H 10/13/18 05:25 Seg Neutrophils # 6.5 K/mm3 (1.8-7.7) 10/13/18 05:25 ESR 140 mm/Hr (0-20) 10/11/18 21:05 Sodium 139 mmol/L (137-145) 10/15/18 07:15 Potassium 4.3 mmol/L (3.6-5.0) 10/15/18 07:15 Chloride 109.3 mmol/L (98-107) H 10/15/18 07:15 Carbon Dioxide 22 mmol/L (22-30) 10/15/18 07:15 Anion Gap 12 mmol/L 10/15/18 07:15 BUN 36 mg/dL (9-20) H 10/15/18 07:15 Creatinine 2.7 mg/dL (0.8-1.5) H 10/15/18 07:15 Estimated GFR 25 ml/min 10/15/18 07:15 BUN/Creatinine Ratio 13 % 10/15/18 07:15 Glucose 207 mg/dL (75-100) H 10/15/18 07:15 POC Glucose 198 (70-105) H 10/15/18 07:17 Lactic Acid 0.70 mmol/L (0.7-2.0) 10/11/18 21:05 Calcium 7.8 mg/dL (8.4-10.2) L 10/15/18 07:15 Iron 21 ug/dL (49-181) L 10/13/18 13:43 TIBC 152 mcg/dL (250-450) L 10/13/18 13:43 Ferritin 270.9 ng/mL (13.0-400.0) 10/13/18 13:43 Total Bilirubin 0.20 mg/dL (0.1-1.2) 10/11/18 20:17 Direct Bilirubin < 0.2 mg/dL (0-0.2) 10/11/18 20:17 Indirect Bilirubin 0.0 mg/dL 10/11/18 20:17 AST 21 units/L (5-40) 10/11/18 20:17 ALT 18 units/L (7-56) 10/11/18 20:17 Alkaline Phosphatase 92 units/L (35-129) 10/11/18 20:17 C-Reactive Protein 4.90 mg/dL (0.00-1.30) H 10/11/18 21:05 Total Protein 7.4 g/dL (6.3-8.2) 10/11/18 20:17 Albumin 4.0 g/dL (3.9-5) 10/11/18 20:17 Albumin/Globulin Ratio 1.2 % 10/11/18 20:17 Vitamin B12 1533 pg/mL (211-911) H 10/13/18 13:43 Folate > 20 ng/mL (7.3-26.0) 10/13/18 13:43 Urine Color Yellow (Yellow) 10/11/18 21:20 Urine Turbidity Slightly-cloudy (Clear) 10/11/18 21:20 Urine pH 5.0 (5.0-7.0) 10/11/18 21:20 Ur Specific [place] 1.011 (1.003-1.030) 10/11/18 21:20 Urine Protein 100 mg/dl mg/dL (Negative) 10/11/18 21:20 Urine Glucose (UA) Neg mg/dL (Negative) 10/11/18 21:20 Urine Ketones Tr mg/dL (Negative) 10/11/18 21:20 Urine Blood Sm (Negative) 10/11/18 21:20 Urine Nitrite Neg (Negative) 10/11/18 21:20 Urine Bilirubin Neg (Negative) 10/11/18 21:20 Urine Urobilinogen < 2.0 mg/dL (<2.0) 10/11/18 21:20 Ur Leukocyte Esterase Neg (Negative) 10/11/18 21:20 Urine WBC (Auto) 2.0 /HPF (0.0-6.0) 10/11/18 21:20 Urine RBC (Auto) 6.0 /HPF (0.0-6.0) 10/11/18 21:20 U Epithel Cells (Auto) < 1.0 /HPF (0-13.0) 10/11/18 21:20 Hyaline Casts 1 /LPF 10/11/18 21:20 Urine Mucus Few /HPF 10/11/18 21:20 Urine Yeast (Budding) Few /HPF 10/11/18 21:20 Urine Sperm Few /HPF ([employer]IE[employer]OOK) 10/11/18 21:20 Urine Creatinine 112.2 mg/dL (0.1-20.0) H 10/12/18 13:09 Urine Sodium 56 mmol/L 10/12/18 13:09 Urine Total Protein 180 mg/dL (5-11.8) H 10/12/18 13:09 Random Vancomycin 8.6 ug/mL (0-40.0) 10/13/18 05:25 Active Medications - Current Medications Current Medications: Generic Name Dose Route Start Last Admin Trade Name Freq PRN Reason Stop Dose Admin Acetaminophen 650 mg 10/12/18 00:25 Tylenol [place] Q4H PRN Fever >101 Dextrose 50 ml 10/12/18 00:26 D50w (25gm) Syringe IV PRN PRN Hypoglycemia Gabapentin 100 mg 10/15/18 10:00 Neurontin PO QAM JOSÉ ANTONIO Heparin Sodium (Porcine) 5,000 unit 10/13/18 22:00 10/14/18 21:33 Heparin SUB-Q 5,000 unit Q12HR JOSÉ ANTONIO Administration Ceftriaxone Sodium 2 gm in 100 mls @ 200 mls/hr 10/13/18 13:00 10/14/18 11:16 Rocephin/Ns 2 Gm/100 Ml IV 11/10/18 23:59 200 mls/hr Q24HR JOSÉ ANTONIO Administration Protocol Insulin Human Regular 0 units 10/12/18 07:30 10/14/18 21:33 Humulin R SUB-Q Not Given AC [facility] Protocol Insulin Human Regular 0 units 10/12/18 22:00 10/14/18 22:00 Humulin R SUB-Q Not Given QHS [facility] Protocol Metoprolol Tartrate 25 mg 10/15/18 10:00 Lopressor PO BID [facility] Morphine Sulfate 2 mg 10/12/18 00:23 Morphine IV Q4H PRN Pain, Moderate (4-6) Ondansetron HCl 4 mg 10/12/18 00:24 Zofran IV Q8H PRN Nausea And Vomiting
[2018-10-15] MEDS: LOPRESSOR PO SCH ×2 (13:20→22:04)
[2018-10-15] MEDS: ROCEPHIN/NS 2 GM/100 ML 2 GM/100 ML BAG IV SCH (13:20)
[2018-10-15] MEDS: NEURONTIN PO SCH (13:20)
[2018-10-15] MEDS: HEPARIN SUB-Q SCH ×2 (13:20→22:06)
[2018-10-15] MEDS: LANTUS SUB-Q SCH (22:06)
[2018-10-16 05:37] LABS: Hematocrit 24.9 % (35.5-45.6); Hemoglobin 8.4 gm/dl (11.8-15.2); Mean Corpuscular HGB Conc 34 % (32-34); Mean Corpuscular Volume 90 fl (84-94); Platelet Count 313 K/mm3 (140-440); Red Blood Count 2.76 M/mm3 (3.65-5.03); Red Cell Distribution Width 12.2 % (13.2-15.2)
[2018-10-16 05:57] LABS: Calcium 7.9 mg/dL (8.4-10.2)
[2018-10-16] MEDS: HumuLIN R SUB-Q SCH ×5 (07:30→22:00)
--- NOTE | 2018-10-16 09:10 | Progress Note ---
Assessment and Plan - Patient Problems (1) DAVEY (acute kidney injury) Current Visit: Yes Status: Acute Plan to address problem: Presumed chronic kidney disease secondary to diabetic nephropathy/hypertensive nephrosclerosis with acute kidney injury probably acute tubular necrosis in the setting of sepsis. Kidney function improving (2) Anemia in chronic illness Current Visit: Yes Status: Acute Plan to address problem: Anemia presumably of chronic kidney disease/chronic illness. Hemoglobin improving (3) Cellulitis of foot, left Current Visit: Yes Status: Acute Plan to address problem: Status post debridement. Continue antibiotics. Awaiting arrangements for outpatient antibiotics (4) Hyperkalemia Current Visit: Yes Status: Acute Plan to address problem: Resolved (5) Hyponatremia Current Visit: Yes Status: Acute Plan to address problem: Resolved (6) Type 2 diabetes mellitus with diabetic chronic kidney disease Current Visit: Yes Status: Acute Plan to address problem: Blood sugar management by primary attending Subjective Date of service: 10/16/18 Principal diagnosis: DAVEY on CKD Interval history: Patient seen lying in bed. He has no complaints today. No fever or chills. Denies pain Objective - Exam Narrative Exam: Middle aged male lying in no acute distress HEENT: NCAT, pink oral mucous membrane Neck: Supple, no venous distention CVS: S1S2 RRR with no murmur, rub or gallop Chest: Clear to auscultation Abdomen: Protuberant, soft, nontender, no organomegaly, bowel sounds are present Extremities: No edema, dressing left foot and ankle Neuro: Awake, alert no focal deficits - Vital Signs Vital signs: Vital Signs - 12hr 10/15/18 10/15/18 10/16/18 22:00 22:04 00:00 Temperature Pulse Rate 69 65 Pulse Rate [ 63 Left Radial] Pulse Rate [ 63 Right Radial] Respiratory 18 Rate Blood Pressure 161/88 O2 Sat by Pulse 98 Oximetry 10/16/18 10/16/18 00:26 04:48 Temperature 32.1 F L 98.2 F Pulse Rate 69 69 Pulse Rate [ Left Radial] Pulse Rate [ Right Radial] Respiratory 18 20 Rate Blood Pressure 119/68 109/66 O2 Sat by Pulse 99 97 Oximetry - Lab 10/16/18 04:46 10/16/18 04:46 Most recent lab results Calcium 7.9 mg/dL (8.4-10.2) L 10/16/18 04:46 Urine Creatinine 112.2 mg/dL (0.1-20.0) H 10/12/18 13:09 Urine Sodium 56 mmol/L 10/12/18 13:09 Urine Total Protein 180 mg/dL (5-11.8) H 10/12/18 13:09 Medications & Allergies - Medications Allergies/Adverse Reactions: Allergies Penicillins Allergy (Verified 12/26/14 02:05) Dizziness Home Medications: Home Medications Medication Instructions Recorded Confirmed Last Taken Type Gabapentin [Neurontin] 100 mg PO QAM 10/12/18 10/12/18 Unknown History Metoprolol [Lopressor] 25 mg PO QAM 10/12/18 10/12/18 Unknown History Pioglitazone HCl 15 mg PO QAM 10/12/18 10/12/18 Unknown History Active Medications: Generic Name Dose Route Start Last Admin Trade Name Freq PRN Reason Stop Dose Admin Acetaminophen 650 mg 10/12/18 00:25 Tylenol [place] Q4H PRN Fever >101 Dextrose 50 ml 10/12/18 00:26 D50w (25gm) Syringe IV PRN PRN Hypoglycemia Gabapentin 100 mg 10/15/18 10:00 10/15/18 13:20 Neurontin PO 100 mg QAM JOSÉ ANTONIO Administration Heparin Sodium (Porcine) 5,000 unit 10/13/18 22:00 10/15/18 22:06 Heparin SUB-Q 5,000 unit Q12HR JOSÉ ANTONIO Administration Ceftriaxone Sodium 2 gm in 100 mls @ 200 mls/hr 10/13/18 13:00 10/15/18 13:20 Rocephin/Ns 2 Gm/100 Ml IV 11/10/18 23:59 200 mls/hr Q24HR JOSÉ ANTONIO Administration Protocol Insulin Glargine 10 units 10/15/18 22:00 10/15/18 22:06 Lantus SUB-Q 10 units QHS JOSÉ ANTONIO Administration Insulin Human Regular 0 units 10/12/18 07:30 10/15/18 16:27 Humulin R SUB-Q Not Given AC [facility] Protocol Insulin Human Regular 0 units 10/12/18 22:00 10/15/18 22:12 Humulin R SUB-Q Not Given QHS [facility] Protocol Metoprolol Tartrate 25 mg 10/15/18 10:00 10/15/18 22:04 Lopressor PO 25 mg BID JOSÉ ANTONIO Administration Morphine Sulfate 2 mg 10/12/18 00:23 Morphine IV Q4H PRN Pain, Moderate (4-6) Ondansetron HCl 4 mg 10/12/18 00:24 Zofran IV Q8H PRN Nausea And Vomiting
[2018-10-16] MEDS: ROCEPHIN/NS 2 GM/100 ML 2 GM/100 ML BAG IV SCH (09:27)
--- NOTE | 2018-10-16 11:52 | Progress Note ---
Assessment and Plan 10/11/2018 Foot Xray: Findings are consistent with acute osteomyelitis involving the fourth proximal phalanx. Cultures: 10/11/2018 Blood: no growth in 24 hours 10/11/2018 Left Foot: no growth 10/12/2018 Left Third toe:Beta Hemolytic Strep Group B 10/12/2018: Left foot: Beta Hemolytic Strep Group B 48 year old male with a past medical history of diabetes and hypertension, that presents in the ED on 10/11/18 with complaints of left foot pain for 1 week. He stated that he started to notice that the 4th toe was getting darker in appearance and started to swell and cause pain. He report chills, nausea and vomiting. Admitted with: 1. Leukocytosis on admission: Resolved, etiology most likely left 4th toe osteomylitis. No fever. U/A without Pyuria. Blood cultures show no growth to date. Wound cultures grew Beta Hemolytic Strep group B. CRP 4.9. Continue Ceftriaxone. 2. Acute Osteomylitis of the 4th proximal Phalanx: Wound cultures grew Beta hemolytic strep group B. On exam purulent drainage from lateral aspect of 4th toe. s/p I & D of left 4th toe 10/12/18. .Dr. Howard following. 3. Type 2 Diabetes: recommend tight glycemic control 4. DAVEY: antibiotics renally dosed 5. Penicillin Allergy: remote, fainting reaction 4 years ago, however has had penicillin recently without reaction. Plan -Continue Ceftriaxone 2gms IV every 24 hours -Anticipate discharge on Ceftriaxone 2gms IV every 24 hours for 4 weeks ending 11-10-18 -Order placed with case management and [facility] -f/u ID clinic in 2 weeks -Continue wound care -PICC line ordered [facility] M: [phone] O:[phone] Subjective Date of service: 10/16/18 Principal diagnosis: DAVEY on CKD Interval history: Patient seen and examined. Communication via translation line, Estonian speaking with some South Korean. OPAT discussed, verbalized understanding. No acute distress, no sob. No fevers. Objective - Exam Narrative Exam: Constitutional: Alert, cooperative. No acute distress. Communication via interpretation line, Estonian speaking Head, Ears, Nose: Normocephalic, atraumatic. External ears, nose normal Eyes: Conjunctivae/corneas clear. No icterus. No ptosis. Neck: Supple, no meningeal signs Oral: dentition fair, no thrush Cardiovascular: S1, S2 normal. Respiratory: Good air entry, clear to auscultation bilaterally GI: Soft, non-tender; bowel sounds normal. No peritoneal signs Musculoskeletal: Left 4th toe diabetic ullceration with serosangunious drainage, + dressing Skin: No rash or abscess. Hem/Lymphatic: No palpable cervical or supraclavicular nodes. No lymphangitis Psych: Mood ok. Affect normal Neurological: Awake, alert, oriented. - Constitutional Vitals: Vital Signs Temp Pulse Resp BP Pulse Ox 98.2 F 69 20 109/66 97 10/16/18 04:48 10/16/18 04:48 10/16/18 04:48 10/16/18 04:48 10/16/18 04:48 Temperature -Last 24 Hours Temperature 98.2 F Temperature 32.1 F Temperature 97.8 F Temperature 98.3 F - Labs CBC & Chem 7: 10/16/18 04:46 10/16/18 04:46 Labs: Abnormal lab results 10/15/18 10/15/18 10/15/18 Range/Units 12:20 16:57 21:33 RBC (3.65-5.03) M/mm3 Hgb (11.8-15.2) gm/dl Hct (35.5-45.6) % RDW (13.2-15.2) % Chloride (98-107) mmol/L BUN (9-20) mg/dL Creatinine (0.8-1.5) mg/dL Glucose (75-100) mg/dL POC Glucose 148 H 136 H 184 H (70-105) Calcium (8.4-10.2) mg/dL 10/16/18 10/16/18 10/16/18 Range/Units 04:46 04:46 06:26 RBC 2.76 L (3.65-5.03) M/mm3 Hgb 8.4 L (11.8-15.2) gm/dl Hct 24.9 L (35.5-45.6) % RDW 12.2 L (13.2-15.2) % Chloride 108.4 H (98-107) mmol/L BUN 35 H (9-20) mg/dL Creatinine 2.6 H (0.8-1.5) mg/dL Glucose 188 H (75-100) mg/dL POC Glucose 155 H (70-105) Calcium 7.9 L (8.4-10.2) mg/dL
--- NOTE | 2018-10-16 12:28 | Progress Note ---
Assessment and Plan - Patient Problems (1) Osteomyelitis of ankle and foot Current Visit: Yes Status: Acute Plan to address problem: Patient with osteomyelitis ankle-foot left fourth toe. Scheduled for I&D today. Continue Rocephin for 4 weeks per treatment. Patient has no viable treatment options for reassurance purposes. Scheduled to complete Rocephin and told to 4 weeks. (2) DAVEY (acute kidney injury) Current Visit: Yes Status: Acute Plan to address problem: Secondary to vasomotor nephropathy. Continues to improve slowly with IV volume replacement. (3) Anemia in chronic illness Current Visit: Yes Status: Acute (4) Cellulitis of foot, left Current Visit: Yes Status: Acute Plan to address problem: See above still mellitus same treatment. (5) Type 2 diabetes mellitus with diabetic chronic kidney disease Current Visit: Yes Status: Acute Plan to address problem: Much improved with the addition of Lantus. We'll also maintain sliding-scale insulin coverage. Accu-Chek 148-155. (6) Hypertension Current Visit: Yes Status: Acute Plan to address problem: Currently has optimal control with metoprolol. Adjust accordingly. History Interval history: Patient actively going down for debridement today. States he is able to put weight on it. Pain is much better. No further questions or concerns. Hospitalist Physical - Constitutional Vitals: Temp Pulse Resp BP Pulse Ox 98.2 F 69 20 109/66 97 10/16/18 04:48 10/16/18 04:48 10/16/18 04:48 10/16/18 04:48 10/16/18 04:48 General appearance: Present: no acute distress - EENT Eyes: Present: PERRL, EOM intact ENT: hearing intact, clear oral mucosa, dentition normal - Neck Neck: Present: supple - Respiratory Respiratory effort: normal Respiratory: bilateral: CTA - Extremities Extremities: no ischemia Extremity abnormal: edema, pulses diminished, other (foot wound bandaged. Some drainage serosanguineous bandaged. For debridement today.) Peripheral Pulses: within normal limits - Abdominal General gastrointestinal: soft, non-tender, non-distended - Integumentary Integumentary: Present: clear, warm, dry - Psychiatric Psychiatric: appropriate mood/affect, intact judgment & insight - Neurologic Neurologic: CNII-XII intact, no focal deficits, no moves all extremities Results - Labs CBC & Chem 7: 10/16/18 04:46 10/16/18 04:46 Labs: Laboratory Last Values WBC 6.7 K/mm3 (4.5-11.0) 10/16/18 04:46 RBC 2.76 M/mm3 (3.65-5.03) L 10/16/18 04:46 Hgb 8.4 gm/dl (11.8-15.2) L 10/16/18 04:46 Hct 24.9 % (35.5-45.6) L 10/16/18 04:46 MCV 90 fl (84-94) 10/16/18 04:46 MCH 30 pg (28-32) 10/16/18 04:46 MCHC 34 % (32-34) 10/16/18 04:46 RDW 12.2 % (13.2-15.2) L 10/16/18 04:46 Plt Count 313 K/mm3 (140-440) 10/16/18 04:46 Lymph % (Auto) 12.6 % (13.4-35.0) L 10/13/18 05:25 [place] % (Auto) 11.8 % (0.0-7.3) H 10/13/18 05:25 Eos % (Auto) 0.9 % (0.0-4.3) 10/13/18 05:25 Baso % (Auto) 0.4 % (0.0-1.8) 10/13/18 05:25 Lymph # 1.1 K/mm3 (1.2-5.4) L 10/13/18 05:25 [place] # 1.0 K/mm3 (0.0-0.8) H 10/13/18 05:25 Eos # 0.1 K/mm3 (0.0-0.4) 10/13/18 05:25 Baso # 0.0 K/mm3 (0.0-0.1) 10/13/18 05:25 Seg Neutrophils % 74.3 % (40.0-70.0) H 10/13/18 05:25 Seg Neutrophils # 6.5 K/mm3 (1.8-7.7) 10/13/18 05:25 ESR 140 mm/Hr (0-20) 10/11/18 21:05 Sodium 140 mmol/L (137-145) 10/16/18 04:46 Potassium 4.2 mmol/L (3.6-5.0) 10/16/18 04:46 Chloride 108.4 mmol/L (98-107) H 10/16/18 04:46 Carbon Dioxide 22 mmol/L (22-30) 10/16/18 04:46 Anion Gap 14 mmol/L 10/16/18 04:46 BUN 35 mg/dL (9-20) H 10/16/18 04:46 Creatinine 2.6 mg/dL (0.8-1.5) H 10/16/18 04:46 Estimated GFR 27 ml/min 10/16/18 04:46 BUN/Creatinine Ratio 13 % 10/16/18 04:46 Glucose 188 mg/dL (75-100) H 10/16/18 04:46 POC Glucose 101 (70-105) 10/16/18 11:54 Lactic Acid 0.70 mmol/L (0.7-2.0) 10/11/18 21:05 Calcium 7.9 mg/dL (8.4-10.2) L 10/16/18 04:46 Iron 21 ug/dL (49-181) L 10/13/18 13:43 TIBC 152 mcg/dL (250-450) L 10/13/18 13:43 Ferritin 270.9 ng/mL (13.0-400.0) 10/13/18 13:43 Total Bilirubin 0.20 mg/dL (0.1-1.2) 10/11/18 20:17 Direct Bilirubin < 0.2 mg/dL (0-0.2) 10/11/18 20:17 Indirect Bilirubin 0.0 mg/dL 10/11/18 20:17 AST 21 units/L (5-40) 10/11/18 20:17 ALT 18 units/L (7-56) 10/11/18 20:17 Alkaline Phosphatase 92 units/L (35-129) 10/11/18 20:17 C-Reactive Protein 4.90 mg/dL (0.00-1.30) H 10/11/18 21:05 Total Protein 7.4 g/dL (6.3-8.2) 10/11/18 20:17 Albumin 4.0 g/dL (3.9-5) 10/11/18 20:17 Albumin/Globulin Ratio 1.2 % 10/11/18 20:17 Vitamin B12 1533 pg/mL (211-911) H 10/13/18 13:43 Folate > 20 ng/mL (7.3-26.0) 10/13/18 13:43 Urine Color Yellow (Yellow) 10/11/18 21:20 Urine Turbidity Slightly-cloudy (Clear) 10/11/18 21:20 Urine pH 5.0 (5.0-7.0) 10/11/18 21:20 Ur Specific Barn[place] 1.011 (1.003-1.030) 10/11/18 21:20 Urine Protein 100 mg/dl mg/dL (Negative) 10/11/18 21:20 Urine Glucose (UA) Neg mg/dL (Negative) 10/11/18 21:20 Urine Ketones Tr mg/dL (Negative) 10/11/18 21:20 Urine Blood Sm (Negative) 10/11/18 21:20 Urine Nitrite Neg (Negative) 10/11/18 21:20 Urine Bilirubin Neg (Negative) 10/11/18 21:20 Urine Urobilinogen < 2.0 mg/dL (<2.0) 10/11/18 21:20 Ur Leukocyte Esterase Neg (Negative) 10/11/18 21:20 Urine WBC (Auto) 2.0 /HPF (0.0-6.0) 10/11/18 21:20 Urine RBC (Auto) 6.0 /HPF (0.0-6.0) 10/11/18 21:20 U Epithel Cells (Auto) < 1.0 /HPF (0-13.0) 10/11/18 21:20 Hyaline Casts 1 /LPF 10/11/18 21:20 Urine Mucus Few /HPF 10/11/18 21:20 Urine Yeast (Budding) Few /HPF 10/11/18 21:20 Urine Sperm Few /HPF ([employer]) 10/11/18 21:20 Urine Creatinine 112.2 mg/dL (0.1-20.0) H 10/12/18 13:09 Urine Sodium 56 mmol/L 10/12/18 13:09 Urine Total Protein 180 mg/dL (5-11.8) H 10/12/18 13:09 Random Vancomycin 8.6 ug/mL (0-40.0) 10/13/18 05:25 Active Medications - Current Medications Current Medications: Generic Name Dose Route Start Last Admin Trade Name Freq PRN Reason Stop Dose Admin Acetaminophen 650 mg 10/12/18 00:25 Tylenol GA Q4H PRN Fever >101 Dextrose 50 ml 10/12/18 00:26 D50w (25gm) Syringe IV PRN PRN Hypoglycemia Gabapentin 100 mg 10/15/18 10:00 10/15/18 13:20 Neurontin PO 100 mg QAM JOSÉ ANTONIO Administration Heparin Sodium (Porcine) 5,000 unit 10/13/18 22:00 10/15/18 22:06 Heparin SUB-Q 5,000 unit Q12HR JOSÉ ANTONIO Administration Ceftriaxone Sodium 2 gm in 100 mls @ 200 mls/hr 10/13/18 13:00 10/16/18 09:27 Rocephin/Ns 2 Gm/100 Ml IV 11/10/18 23:59 200 mls/hr Q24HR JOSÉ ANTONIO Administration Protocol Insulin Glargine 10 units 10/15/18 22:00 10/15/18 22:06 Lantus SUB-Q 10 units QHS [facility] Administration Insulin Human Regular 0 units 10/12/18 07:30 10/16/18 07:30 Humulin R SUB-Q Not Given AC [facility] Protocol Insulin Human Regular 0 units 10/12/18 22:00 10/15/18 22:12 [facility]-Q [facility] Metoprolol Tartrate 25 mg 10/15/18 10:00 10/15/18 22:04 Lopressor PO 25 mg BID JOSÉ ANTONIO Administration Morphine Sulfate 2 mg 10/12/18 00:23 Morphine IV Q4H PRN Pain, Moderate (4-6) Ondansetron HCl 4 mg 10/12/18 00:24 Zofran IV Q8H PRN Nausea And Vomiting
[2018-10-16] MEDS: LOPRESSOR PO SCH ×2 (13:55→21:57)
[2018-10-16] MEDS: NEURONTIN PO SCH (13:55)
[2018-10-16] MEDS: HEPARIN SUB-Q SCH ×2 (13:56→21:57)
--- NOTE | 2018-10-16 15:18 | XRay Report ---
AP CHEST: HISTORY: Right arm PICC placement AP view of the chest demonstrates a normal mediastinal and cardiac contour with clear lungs and normal bony and soft tissue structures. The right arm PICC terminates at the cavoatrial junction. IMPRESSION: Unremarkable AP chest. Adequate right arm PICC placement.
[2018-10-16] MEDS: LANTUS SUB-Q SCH (21:57)
[2018-10-17] MEDS: HumuLIN R SUB-Q SCH ×4 (08:07→23:27)
--- NOTE | 2018-10-17 08:31 | Progress Note ---
Assessment and Plan - Patient Problems (1) DAVEY (acute kidney injury) Current Visit: Yes Status: Acute Plan to address problem: Presumed chronic kidney disease secondary to diabetic nephropathy/hypertensive nephrosclerosis with acute kidney injury probably acute tubular necrosis in the setting of sepsis. Kidney function was improving. Labs pending this morning (2) Anemia in chronic illness Current Visit: Yes Status: Acute Plan to address problem: Anemia presumably of chronic kidney disease/chronic illness. Hemoglobin improving (3) Cellulitis of foot, left Current Visit: Yes Status: Acute Plan to address problem: Status post debridement. Continue antibiotics. Awaiting arrangements for outpatient antibiotics (4) Hyperkalemia Current Visit: Yes Status: Acute Plan to address problem: Resolved (5) Hyponatremia Current Visit: Yes Status: Acute Plan to address problem: Resolved (6) Type 2 diabetes mellitus with diabetic chronic kidney disease Current Visit: Yes Status: Acute Plan to address problem: Blood sugar management by primary attending Subjective Date of service: 10/17/18 Principal diagnosis: DAVEY on CKD Interval history: Patient seen lying in bed. He has no complaints today. Slept well overnight. No fever or chills. Denies pain Objective - Exam Narrative Exam: Middle aged male lying in no acute distress HEENT: NCAT, pink oral mucous membrane Neck: Supple, no venous distention CVS: S1S2 RRR with no murmur, rub or gallop Chest: Clear to auscultation Abdomen: Protuberant, soft, nontender, no organomegaly, bowel sounds are present Extremities: No edema, dressing left foot and ankle Neuro: Awake, alert no focal deficits - Vital Signs Vital signs: Vital Signs - 12hr 10/16/18 10/16/18 10/17/18 21:57 22:00 00:00 Temperature Pulse Rate 68 61 Pulse Rate [ 68 Apical] Respiratory 18 Rate Blood Pressure 128/64 O2 Sat by Pulse 98 Oximetry 10/17/18 10/17/18 10/17/18 01:06 04:02 08:09 Temperature 98.2 F 98.3 F 98.6 F Pulse Rate 63 63 61 Pulse Rate [ Apical] Respiratory 20 20 20 Rate Blood Pressure 121/64 102/55 121/64 O2 Sat by Pulse 100 98 97 Oximetry - Lab 10/16/18 04:46 10/16/18 04:46 Most recent lab results Calcium 7.9 mg/dL (8.4-10.2) L 10/16/18 04:46 Urine Creatinine 112.2 mg/dL (0.1-20.0) H 10/12/18 13:09 Urine Sodium 56 mmol/L 10/12/18 13:09 Urine Total Protein 180 mg/dL (5-11.8) H 10/12/18 13:09 Medications & Allergies - Medications Allergies/Adverse Reactions: Allergies Penicillins Allergy (Verified 12/26/14 02:05) Dizziness Home Medications: Home Medications Medication Instructions Recorded Confirmed Last Taken Type Gabapentin [Neurontin] 100 mg PO QAM 10/12/18 10/12/18 Unknown History Metoprolol [Lopressor] 25 mg PO QAM 10/12/18 10/12/18 Unknown History Pioglitazone HCl 15 mg PO QAM 10/12/18 10/12/18 Unknown History Active Medications: Generic Name Dose Route Start Last Admin Trade Name Freq PRN Reason Stop Dose Admin Acetaminophen 650 mg 10/12/18 00:25 Tylenol HI Q4H PRN Fever >101 Dextrose 50 ml 10/12/18 00:26 D50w (25gm) Syringe IV PRN PRN Hypoglycemia Gabapentin 100 mg 10/15/18 10:00 10/16/18 13:55 Neurontin PO 100 mg QAM JOSÉ ANTONIO Administration Heparin Sodium (Porcine) 5,000 unit 10/13/18 22:00 10/16/18 21:57 Heparin SUB-Q 5,000 unit Q12HR JOSÉ ANTONIO Administration Ceftriaxone Sodium 2 gm in 100 mls @ 200 mls/hr 10/13/18 13:00 10/16/18 09:27 Rocephin/Ns 2 Gm/100 Ml IV 11/10/18 23:59 200 mls/hr Q24HR JOSÉ ANTONIO Administration Protocol Insulin Glargine 10 units 10/15/18 22:00 10/16/18 21:57 Lantus SUB-Q 10 units QHS JOSÉ ANTONIO Administration Insulin Human Regular 0 units 10/12/18 07:30 10/17/18 08:07 Humulin R SUB-Q Not Given AC [facility] Protocol Insulin Human Regular 0 units 10/12/18 22:00 10/16/18 22:00 Humulin R SUB-Q Not Given QHS [facility] Protocol Metoprolol Tartrate 25 mg 10/15/18 10:00 10/16/18 21:57 Lopressor PO 25 mg BID JOSÉ ANTONIO Administration Morphine Sulfate 2 mg 10/12/18 00:23 Morphine IV Q4H PRN Pain, Moderate (4-6) Ondansetron HCl 4 mg 10/12/18 00:24 Zofran IV Q8H PRN Nausea And Vomiting
[2018-10-17] MEDS: ROCEPHIN/NS 2 GM/100 ML 2 GM/100 ML BAG IV SCH (10:00)
--- NOTE | 2018-10-17 10:08 | Progress Note ---
Assessment and Plan 10/11/2018 Foot Xray: Findings are consistent with acute osteomyelitis involving the fourth proximal phalanx. Cultures: 10/11/2018 Blood: no growth in 24 hours 10/11/2018 Left Foot: no growth 10/12/2018 Left Third toe:Beta Hemolytic Strep Group B 10/12/2018: Left foot: Beta Hemolytic Strep Group B 48 year old male with a past medical history of diabetes and hypertension, that presents in the ED on 10/11/18 with complaints of left foot pain for 1 week. He stated that he started to notice that the 4th toe was getting darker in appearance and started to swell and cause pain. He report chills, nausea and vomiting. Admitted with: 1. Leukocytosis on admission: Resolved, etiology most likely left 4th toe osteomylitis. No fever. U/A without Pyuria. Blood cultures show no growth to date. Wound cultures grew Beta Hemolytic Strep group B. CRP 4.9. Continue Ceftriaxone. 2. Acute Osteomylitis of the 4th proximal Phalanx: Wound cultures grew Beta hemolytic strep group B. On exam purulent drainage from lateral aspect of 4th toe. s/p I & D of left 4th toe 10/12/18. .Dr. Anita carlson. 3. Type 2 Diabetes: recommend tight glycemic control 4. DAVEY: antibiotics renally dosed 5. Penicillin Allergy: remote, fainting reaction 4 years ago, however has had penicillin recently without reaction. Plan -Continue Ceftriaxone 2gms IV every 24 hours -Anticipate discharge on Ceftriaxone 2gms IV every 24 hours for 4 weeks ending 11-10-18 -Order placed with case management and [facility] -f/u ID clinic in 2 weeks -Continue wound care Michelle Salgado NP [facility] M: [phone] O:[phone] Subjective Date of service: 10/17/18 Principal diagnosis: DAVEY on CKD Interval history: Patient seen and examined. Communication via translation line, Austrian speaking with some Macedonian. OPAT discussed, verbalized understanding. No acute distress, no sob. No fevers. Objective - Exam Narrative Exam: Constitutional: Alert, cooperative. No acute distress. Communication via interpretation line, Austrian speaking Head, Ears, Nose: Normocephalic, atraumatic. External ears, nose normal Eyes: Conjunctivae/corneas clear. No icterus. No ptosis. Neck: Supple, no meningeal signs Oral: dentition fair, no thrush Cardiovascular: S1, S2 normal. Respiratory: Good air entry, clear to auscultation bilaterally GI: Soft, non-tender; bowel sounds normal. No peritoneal signs Musculoskeletal: Left 4th toe diabetic ullceration with serosangunious drainage, + dressing Skin: No rash or abscess. Hem/Lymphatic: No palpable cervical or supraclavicular nodes. No lymphangitis Psych: Mood ok. Affect normal Neurological: Awake, alert, oriented. Lines: Right PICC - Constitutional Vitals: Vital Signs Temp Pulse Resp BP Pulse Ox 98.6 F 61 20 121/64 97 10/17/18 08:09 10/17/18 08:09 10/17/18 08:09 10/17/18 08:09 10/17/18 08:09 Temperature -Last 24 Hours Temperature 98.6 F Temperature 98.3 F Temperature 98.2 F Temperature 98.4 F Temperature 98.2 F - Labs CBC & Chem 7: 10/16/18 04:46 10/16/18 04:46 Labs: Abnormal lab results 10/16/18 10/16/18 10/17/18 Range/Units 16:19 21:18 07:40 POC Glucose 405 H 142 H 61 L (70-105)
[2018-10-17] MEDS: HEPARIN SUB-Q SCH ×2 (12:03→23:28)
[2018-10-17] MEDS: LOPRESSOR PO SCH ×2 (12:04→23:26)
[2018-10-17] MEDS: NEURONTIN PO SCH (12:05)
--- NOTE | 2018-10-17 15:16 | Progress Note ---
Assessment and Plan Assessment and plan: Osteomyelitis of the left 4th toe -Status post incision and drainage -Patient was on IV vancomycin and cefepime and switched to rocephin to be completed for 4 weeks -ID is on board Acute renal failure probably acute tubular necrosis -Creatinine level improving, will monitor -Nephrology is following Diabetes mellitus type 2 -Blood glucose fluctuating -Continue current insulin regimen and adjust as needed Acute on chronic anemia -H&H currently stable, will monitor Hypertension -Controlled on current antihypertensive DVT prophylaxis -On Heparin Disposition: patient is unfunded and needs 4 weeks of IV antibiotics. Case management aware and will be discharged once arranged. History Interval history: Patient has no new complaints. Hospitalist Physical - Constitutional Vitals: Temp Pulse Resp BP Pulse Ox 98.7 F 65 20 126/68 99 10/17/18 12:06 10/17/18 12:06 10/17/18 12:06 10/17/18 12:06 10/17/18 12:06 General appearance: Present: no acute distress - EENT Eyes: Present: PERRL, EOM intact ENT: hearing intact, clear oral mucosa - Neck Neck: Present: supple - Respiratory Respiratory effort: normal Respiratory: bilateral: CTA - Cardiovascular Rhythm: regular Heart Sounds: Present: S1 & S2 - Extremities Extremities: No edema Extremity abnormal: other (dressing over left foot noted) - Abdominal General gastrointestinal: soft, non-tender, non-distended, normal bowel sounds - Neurologic Neurologic: CNII-XII intact Results - Labs CBC & Chem 7: 10/16/18 04:46 10/16/18 04:46 Labs: Laboratory Last Values WBC 6.7 K/mm3 (4.5-11.0) 10/16/18 04:46 RBC 2.76 M/mm3 (3.65-5.03) L 10/16/18 04:46 Hgb 8.4 gm/dl (11.8-15.2) L 10/16/18 04:46 Hct 24.9 % (35.5-45.6) L 10/16/18 04:46 MCV 90 fl (84-94) 10/16/18 04:46 MCH 30 pg (28-32) 10/16/18 04:46 MCHC 34 % (32-34) 10/16/18 04:46 RDW 12.2 % (13.2-15.2) L 10/16/18 04:46 Plt Count 313 K/mm3 (140-440) 10/16/18 04:46 Lymph % (Auto) 12.6 % (13.4-35.0) L 10/13/18 05:25 [place] % (Auto) 11.8 % (0.0-7.3) H 10/13/18 05:25 Eos % (Auto) 0.9 % (0.0-4.3) 10/13/18 05:25 Baso % (Auto) 0.4 % (0.0-1.8) 10/13/18 05:25 Lymph # 1.1 K/mm3 (1.2-5.4) L 10/13/18 05:25 [place] # 1.0 K/mm3 (0.0-0.8) H 10/13/18 05:25 Eos # 0.1 K/mm3 (0.0-0.4) 10/13/18 05:25 Baso # 0.0 K/mm3 (0.0-0.1) 10/13/18 05:25 Seg Neutrophils % 74.3 % (40.0-70.0) H 10/13/18 05:25 Seg Neutrophils # 6.5 K/mm3 (1.8-7.7) 10/13/18 05:25 ESR 140 mm/Hr (0-20) 10/11/18 21:05 Sodium 140 mmol/L (137-145) 10/16/18 04:46 Potassium 4.2 mmol/L (3.6-5.0) 10/16/18 04:46 Chloride 108.4 mmol/L (98-107) H 10/16/18 04:46 Carbon Dioxide 22 mmol/L (22-30) 10/16/18 04:46 Anion Gap 14 mmol/L 10/16/18 04:46 BUN 35 mg/dL (9-20) H 10/16/18 04:46 Creatinine 2.6 mg/dL (0.8-1.5) H 10/16/18 04:46 Estimated GFR 27 ml/min 10/16/18 04:46 BUN/Creatinine Ratio 13 % 10/16/18 04:46 Glucose 188 mg/dL (75-100) H 10/16/18 04:46 POC Glucose 99 (70-105) 10/17/18 12:40 Lactic Acid 0.70 mmol/L (0.7-2.0) 10/11/18 21:05 Calcium 7.9 mg/dL (8.4-10.2) L 10/16/18 04:46 Iron 21 ug/dL (49-181) L 10/13/18 13:43 TIBC 152 mcg/dL (250-450) L 10/13/18 13:43 Ferritin 270.9 ng/mL (13.0-400.0) 10/13/18 13:43 Total Bilirubin 0.20 mg/dL (0.1-1.2) 10/11/18 20:17 Direct Bilirubin < 0.2 mg/dL (0-0.2) 10/11/18 20:17 Indirect Bilirubin 0.0 mg/dL 10/11/18 20:17 AST 21 units/L (5-40) 10/11/18 20:17 ALT 18 units/L (7-56) 10/11/18 20:17 Alkaline Phosphatase 92 units/L (35-129) 10/11/18 20:17 C-Reactive Protein 4.90 mg/dL (0.00-1.30) H 10/11/18 21:05 Total Protein 7.4 g/dL (6.3-8.2) 10/11/18 20:17 Albumin 4.0 g/dL (3.9-5) 10/11/18 20:17 Albumin/Globulin Ratio 1.2 % 10/11/18 20:17 Vitamin B12 1533 pg/mL (211-911) H 10/13/18 13:43 Folate > 20 ng/mL (7.3-26.0) 10/13/18 13:43 Urine Color Yellow (Yellow) 10/11/18 21:20 Urine Turbidity Slightly-cloudy (Clear) 10/11/18 21:20 Urine pH 5.0 (5.0-7.0) 10/11/18 21:20 Ur Specific [place] 1.011 (1.003-1.030) 10/11/18 21:20 Urine Protein 100 mg/dl mg/dL (Negative) 10/11/18 21:20 Urine Glucose (UA) Neg mg/dL (Negative) 10/11/18 21:20 Urine Ketones Tr mg/dL (Negative) 10/11/18 21:20 Urine Blood Sm (Negative) 10/11/18 21:20 Urine Nitrite Neg (Negative) 10/11/18 21:20 Urine Bilirubin Neg (Negative) 10/11/18 21:20 Urine Urobilinogen < 2.0 mg/dL (<2.0) 10/11/18 21:20 Ur Leukocyte Esterase Neg (Negative) 10/11/18 21:20 Urine WBC (Auto) 2.0 /HPF (0.0-6.0) 10/11/18 21:20 Urine RBC (Auto) 6.0 /HPF (0.0-6.0) 10/11/18 21:20 U Epithel Cells (Auto) < 1.0 /HPF (0-13.0) 10/11/18 21:20 Hyaline Casts 1 /LPF 10/11/18 21:20 Urine Mucus Few /HPF 10/11/18 21:20 Urine Yeast (Budding) Few /HPF 10/11/18 21:20 Urine Sperm Few /HPF ([facility] LPN) 10/11/18 21:20 Urine Creatinine 112.2 mg/dL (0.1-20.0) H 10/12/18 13:09 Urine Sodium 56 mmol/L 10/12/18 13:09 Urine Total Protein 180 mg/dL (5-11.8) H 10/12/18 13:09 Random Vancomycin 8.6 ug/mL (0-40.0) 10/13/18 05:25 Active Medications - Current Medications Current Medications: Generic Name Dose Route Start Last Admin Trade Name Freq PRN Reason Stop Dose Admin Acetaminophen 650 mg 10/12/18 00:25 Tylenol DC Q4H PRN Fever >101 Dextrose 50 ml 10/12/18 00:26 D50w (25gm) Syringe IV PRN PRN Hypoglycemia Gabapentin 100 mg 10/15/18 10:00 10/17/18 12:05 Neurontin PO 100 mg QAM JOSÉ ANTONIO Administration Heparin Sodium (Porcine) 5,000 unit 10/13/18 22:00 10/17/18 12:03 Heparin SUB-Q 5,000 unit Q12HR JOSÉ ANTONIO Administration Ceftriaxone Sodium 2 gm in 100 mls @ 200 mls/hr 10/13/18 13:00 10/17/18 10:00 Rocephin/Ns 2 Gm/100 Ml IV 11/10/18 23:59 200 mls/hr Q24HR JOSÉ ANTONIO Administration Protocol Insulin Glargine 10 units 10/15/18 22:00 10/16/18 21:57 Lantus SUB-Q 10 units QHS [facility] Administration Insulin Human Regular 0 units 10/12/18 07:30 10/17/18 08:07 Humulin R SUB-Q Not Given AC [facility] Protocol Insulin Human Regular 0 units 10/12/18 22:00 10/16/18 22:00 Humulin R SUB-Q Not Given QHS [facility] Protocol Metoprolol Tartrate 25 mg 10/15/18 10:00 10/17/18 12:04 Lopressor PO 25 mg BID JOSÉ ANTONIO Administration Morphine Sulfate 2 mg 10/12/18 00:23 Morphine IV Q4H PRN Pain, Moderate (4-6) Ondansetron HCl 4 mg 10/12/18 00:24 Zofran IV Q8H PRN Nausea And Vomiting
[2018-10-17] MEDS: LANTUS SUB-Q SCH (23:28)
[2018-10-18 05:53] LABS: Calcium 8.1 mg/dL (8.4-10.2)
[2018-10-18] MEDS: HumuLIN R SUB-Q SCH (08:22)
--- NOTE | 2018-10-18 10:43 | Progress Note ---
Assessment and Plan 10/11/2018 Foot Xray: Findings are consistent with acute osteomyelitis involving the fourth proximal phalanx. Cultures: 10/11/2018 Blood: no growth in 24 hours 10/11/2018 Left Foot: no growth 10/12/2018 Left Third toe:Beta Hemolytic Strep Group B 10/12/2018: Left foot: Beta Hemolytic Strep Group B 48 year old male with a past medical history of diabetes and hypertension, that presents in the ED on 10/11/18 with complaints of left foot pain for 1 week. He stated that he started to notice that the 4th toe was getting darker in appearance and started to swell and cause pain. He report chills, nausea and vomiting. Admitted with: 1. Leukocytosis on admission: Resolved, etiology most likely left 4th toe osteomylitis. No fever. U/A without Pyuria. Blood cultures show no growth to date. Wound cultures grew Beta Hemolytic Strep group B. CRP 4.9. Continue Ceftriaxone. 2. Acute Osteomylitis of the 4th proximal Phalanx: Wound cultures grew Beta hemolytic strep group B. On exam purulent drainage from lateral aspect of 4th toe. s/p I & D of left 4th toe 10/12/18. .Dr. Anita carlson. 3. Type 2 Diabetes: recommend tight glycemic control 4. DAVEY: antibiotics renally dosed 5. Penicillin Allergy: remote, fainting reaction 4 years ago, however has had penicillin recently without reaction. Plan -Continue Ceftriaxone 2gms IV every 24 hours -Anticipate discharge on Ceftriaxone 2gms IV every 24 hours for 4 weeks ending 11-10-18 -Order placed with case management and [facility] -f/u ID clinic in 2 weeks -Continue wound care Michelle Salgado NP [facility] M: [id number] O:[phone] Subjective Date of service: 10/18/18 Principal diagnosis: DAVEY on CKD Interval history: Patient seen and examined. Communication via translation line, Georgian speaking with some Latvian. OPAT discussed, verbalized understanding. No acute distress, no sob. No fevers. Objective - Exam Narrative Exam: Constitutional: Alert, cooperative. No acute distress. Communication via interpretation line, Georgian speaking Head, Ears, Nose: Normocephalic, atraumatic. External ears, nose normal Eyes: Conjunctivae/corneas clear. No icterus. No ptosis. Neck: Supple, no meningeal signs Oral: dentition fair, no thrush Cardiovascular: S1, S2 normal. Respiratory: Good air entry, clear to auscultation bilaterally GI: Soft, non-tender; bowel sounds normal. No peritoneal signs Musculoskeletal: Left 4th toe diabetic ullceration with serosangunious drainage, + dressing Skin: No rash or abscess. Hem/Lymphatic: No palpable cervical or supraclavicular nodes. No lymphangitis Psych: Mood ok. Affect normal Neurological: Awake, alert, oriented. Lines: Right PICC - Constitutional Vitals: Vital Signs Temp Pulse Resp BP Pulse Ox 98.0 F 66 14 118/62 100 10/18/18 09:20 10/18/18 09:20 10/18/18 09:20 10/18/18 09:20 10/18/18 09:20 Temperature -Last 24 Hours Temperature 98.0 F Temperature 98.5 F Temperature 98.0 F Temperature 97.7 F Temperature 98.1 F Temperature 97.4 F Temperature 97.3 F Temperature 98.7 F - Labs CBC & Chem 7: 10/16/18 04:46 10/18/18 05:14 Labs: Abnormal lab results 10/17/18 10/17/18 10/18/18 Range/Units 15:42 21:22 05:14 Chloride 109.3 H (98-107) mmol/L BUN 38 H (9-20) mg/dL Creatinine 2.6 H (0.8-1.5) mg/dL POC Glucose 169 H 207 H (70-105) Calcium 8.1 L (8.4-10.2) mg/dL
[2018-10-18] MEDS: NEURONTIN PO SCH (11:22)
[2018-10-18] MEDS: HEPARIN SUB-Q SCH (11:23)
[2018-10-18 11:32] VITALS: BP 104/58
[2018-10-18] MEDS: ROCEPHIN/NS 2 GM/100 ML 2 GM/100 ML BAG IV SCH (11:32)
[2018-10-18] MEDS: LOPRESSOR PO SCH (11:32)
--- NOTE | 2018-10-18 14:45 | Discharge Summary ---
Providers - Providers Date of Admission: 10/11/18 23:01 Date of discharge: 10/18/18 Attending physician: GRETCHEN JAMES 10/11/18 21:17 Consult to Physician [CONS] Urgent Comment: Dr. Marroquin spoke with Dr. Pimentel @ [phone] Consulting Provider: SHAMEKA REESE Physician Instructions: Reason For Exam: hyperkalemia brice 10/11/18 22:58 Consult to Physician [CONS] Urgent Comment: Dr. Marroquin spoke with Dr. Oakes @ [phone] Consulting Provider: RENE OAKES Physician Instructions: Reason For Exam: cellulitis with gas 10/12/18 09:50 Consult to Physician [CONS] Routine Comment: Consulting Provider: DONNY SHARMA Physician Instructions: Reason For Exam: Osteomyelitis of the left 4th toes 10/16/18 11:55 Consult to Case Management [CONS] Urgent Services Needed at Discharge: Home Health Services Notified:: yes Additional Physician Instructions: [facility] M [phone] O [phone] F [phone] OUTPATIENT PARENTERAL ANTIBIOTIC THERAPY ORDERS Diagnoses: Acute Osteomylitis of the 4th proximal Phalanx Antimicrobial administration: Anticipate discharge on Ceftriaxone 2gms IV every 24 hours for 4 weeks ending 11-10-18. Remove PICC line after last dose unless otherwise instructed. Lines: PICC Lab monitoring: CBC, ALT, AST, ESR and CRP once a week preferly on Tuesday morning. Please fax results to [phone] and call [phone] for critical lab results. Michelle Salgado NP/ Dr. David Date: 10/16/18 10/16/18 11:59 PICC Line Insertion [Consult to PICC Line RN] [CONS] Urgent Reason For Exam: OPAT Type Line:: PICC [facility] Reason for admission: Osteomyelitis of the left 4th toe, hyponatremia, hypokalemia, ARF Condition: Serious Pertinent studies: Foot x-ray Chest x-ray Renal ultrasound Procedures: Incision and drainage Hospital course: Final discharge diagnosis: -Osteomyelitis of the left 4th toe -Acute renal failure probably acute tubular necrosis -Hyponatremia -Hyperkalemia -Diabetes mellitus type 2 -Acute on chronic anemia -Hypertension Hospital course: On admission, patient was placed on IV broad-spectrum antibiotics. Following the impairment and electrolyte abnormalities, he was placed on IV fluid. The reafter, he underwent incision and drainage. The wound culture later came back positive for beta-hemolytic strep group B. At that time, the antibiotic was adjusted. Patient needed outpatient IV antibiotics for at least 6 weeks. However because he was uninsured, his hospital stay was prolonged while arrangements were made for his outpatient antibiotic. He was later discharged on 2 g IV Rocephin, to be completed on 11/10/2018 Disposition: DC-01 TO HOME OR SELFCARE Time spent for discharge: 35 minutes Core Measure Documentation - Palliative Care Palliative Care/ Comfort Measures: Not Applicable - Core Measures Any of the following diagnoses?: none Exam - Constitutional Vitals: Temp Pulse Resp BP Pulse Ox 98.0 F 66 14 104/58 98 10/18/18 09:20 10/18/18 09:20 10/18/18 09:20 10/18/18 11:32 10/18/18 10:00 General appearance: Present: no acute distress, well-nourished - EENT Eyes: Present: PERRL, EOM intact ENT: hearing intact, clear oral mucosa - Neck Neck: Present: supple, normal ROM - Respiratory Respiratory effort: normal Respiratory: bilateral: CTA - Cardiovascular Rhythm: regular Heart Sounds: Present: S1 & S2. Absent: rub, click - Extremities Extremity abnormal: other (dressing noted over the left foot) - Abdominal General gastrointestinal: Present: soft, non-tender, non-distended, normal bowel sounds Male genitourinary: Present: deferred - Musculoskeletal Musculoskeletal: gait normal, strength equal bilaterally - Psychiatric Psychiatric: appropriate mood/affect, intact judgment & insight - Neurologic Neurologic: CNII-XII intact, moves all extremities Plan Follow up with: RILEY MONAHAN MD [Primary Care Provider] - 3-5 Days Prescriptions: cefTRIAXone [Rocephin] 2 gm IV Q24H #23 vial
[2018-10-19] MEDS ORDERED: LANTUS SUB-Q SCH (10:00)
== END 2018-10-18 13:14 | disposition home or self-care (01) | DRG 602 ==
LOC: ED 19:18 → 4A 23:01
PROVIDERS: ADMIT Internal Medicine; ATTEND Internal Medicine
PROC: 0HDNXZZ Extraction of Left Foot Skin, External Approach (ICD-10-PCS; principal; 2018-10-12)
PROC: 0H9NXZZ Drainage of Left Foot Skin, External Approach (ICD-10-PCS; 2018-10-12)
DX: L03.116 Cellulitis of left lower limb (principal); N17.0 Acute kidney failure with tubular necrosis; M86.172 Other acute osteomyelitis, left ankle and foot; E87.1 Hypo-osmolality and hyponatremia; E87.5 Hyperkalemia; Z88.0 Allergy status to penicillin; E11.69 Type 2 diabetes mellitus with other specified complication; N18.9 Chronic kidney disease, unspecified; E11.22 Type 2 diabetes mellitus with diabetic chronic kidney disease; I12.9 Hypertensive chronic kidney disease with stage 1 through stage 4 chronic kidney disease, or unspecified chronic kidney disease; D63.8 Anemia in other chronic diseases classified elsewhere
CPT/HCPCS: 36415; 71045; 76770; 80048; 80076; 80202; 81001; 82140; 82570; 82607; 82728; 82747; 82962; 83550; 84156; 84300; 85025; 85027; 85652; 86140; 86160; 87040; 87116; 90715; 93005; 93010; 96374; 99291; G0378; J0610; J0692; J0696; J1644; J1815; J3370; J7030; J7040; J7050

== ENCOUNTER 2018-10-23 14:18 | Outpatient (CLI) | payer OTHER ==
[2018-10-23 14:50] LABS: Basophils % (Auto) 0.3 % (0.0-1.8); Eosinophils # (Auto) 0.1 K/mm3 (0.0-0.4); Eosinophils % (Auto) 1.2 % (0.0-4.3); Hematocrit 24.8 % (35.5-45.6); Hemoglobin 8.4 gm/dl (11.8-15.2); Lymphocytes % (Auto) 17.1 % (13.4-35.0); Mean Corpuscular HGB Conc 34 % (32-34); Mean Corpuscular Volume 92 fl (84-94); Monocytes # (Auto) 0.4 K/mm3 (0.0-0.8); Monocytes % (Auto) 6.8 % (0.0-7.3); Platelet Count 277 K/mm3 (140-440); Red Cell Distribution Width 13.5 % (13.2-15.2)
[2018-10-23 15:17] LABS: Erythrocyte Sedimentation Rate 76 mm/Hr (0-20)
[2018-10-23 15:53] LABS: C-Reactive Protein 0.2 mg/dL (0.00-1.30)
== END 2018-10-23 14:19 | disposition home or self-care (01) ==
LOC: LAB 14:18
DX: E11.22 Type 2 diabetes mellitus with diabetic chronic kidney disease (principal); I12.9 Hypertensive chronic kidney disease with stage 1 through stage 4 chronic kidney disease, or unspecified chronic kidney disease; N18.9 Chronic kidney disease, unspecified
CPT/HCPCS: 36415; 84450; 84460; 85025; 85652; 86140

== ENCOUNTER 2018-11-06 09:46 | Outpatient (CLI) | payer SELFPAY ==
[2018-11-06 10:05] LABS: Hematocrit 25.1 % (35.5-45.6); Hemoglobin 8.3 gm/dl (11.8-15.2); Mean Corpuscular HGB Conc 33 % (32-34); Mean Corpuscular Volume 95 fl (84-94); Platelet Count 198 K/mm3 (140-440); Red Blood Count 2.65 M/mm3 (3.65-5.03); Red Cell Distribution Width 15.3 % (13.2-15.2)
[2018-11-06 10:31] LABS: C-Reactive Protein 0.1 mg/dL (0.00-1.30)
[2018-11-06 10:36] LABS: Erythrocyte Sedimentation Rate 75 mm/Hr (0-20)
== END 2018-11-06 09:47 | disposition home or self-care (01) ==
LOC: LAB 09:46
DX: E11.9 Type 2 diabetes mellitus without complications (principal); I10 Essential (primary) hypertension
CPT/HCPCS: 36415; 84450; 84460; 85027; 85652; 86140

== ENCOUNTER 2020-05-15 13:17 | Inpatient (IN) | payer OTHER, SELFPAY ==
--- NOTE | 2020-05-15 13:43 | Event Note ---
ED Screening Note Date of service: 05/15/20 Time: 13:42 ED Screening Note: Patient sent to the ED for low H&H-7.7 hgb Newly diagnosed ESRD This initial assessment/diagnostic orders/clinical plan/treatment(s) is/are subject to change based on patients health status, clinical progression and re- assessment by fellow clinical providers in the ED. Further treatment and workup at subsequent clinical providers discretion. Patient/guardian urged not to elope from the ED as their condition may be serious if not clinically assessed and managed. Initial orders include: Labs Type and screen
[2020-05-15 19:55] LABS: INR 1.07 (0.87-1.13)
[2020-05-15 19:56] LABS: Partial Thromboplastin Time 29.4 Sec. (24.2-36.6)
[2020-05-15 20:00] LABS: Basophils % (Auto) 0.5 % (0.0-1.8); Eosinophils # (Auto) 0.1 K/mm3 (0.0-0.4); Eosinophils % (Auto) 1.3 % (0.0-4.3); Hematocrit 24.2 % (35.5-45.6); Hemoglobin 8.2 gm/dl (11.8-15.2); Lymphocytes # (Auto) 1.1 K/mm3 (1.2-5.4); Lymphocytes % (Auto) 13.7 % (13.4-35.0); Mean Corpuscular HGB Conc 34 % (32-34); Mean Corpuscular Volume 89 fl (84-94); Monocytes # (Auto) 0.9 K/mm3 (0.0-0.8); Monocytes % (Auto) 10.5 % (0.0-7.3); Platelet Count 251 K/mm3 (140-440); Red Blood Count 2.72 M/mm3 (3.65-5.03)
[2020-05-15 20:11] LABS: Calcium 8.5 mg/dL (8.4-10.2)
--- NOTE | 2020-05-15 20:15 | Emergency Department Report ---
ED General Adult HPI - General Chief complaint: Recheck/Abnormal Lab/Rx Stated complaint: SEVERE ANEMIA REFER BY DR SIVA PHILLIPS Time Seen by Provider: 05/15/20 13:41 Source: patient Mode of arrival: Ambulatory Limitations: No Limitations - History of Present Illness Initial comments: The patient presents to the emergency department via the request of his ne phrologist was Dr. Phillips. Patient was seen by Dr. Phillips today and was sent to the emergency department for abnormal laboratory values. Patient complains of his legs being swollen but denies any chest pain. Patient states he is not on dialysis as of yet but is concerned that he may have to start dialysis soon. Patient does have hypertension and diabetes. Patient also has chronic kidney disease. -: unknown Severity scale (0 -10): 1 Quality: aching Consistency: constant Improves with: none Worsens with: none Associated Symptoms: denies other symptoms Treatments Prior to Arrival: none - Related Data Home Medications Medication Instructions Recorded Confirmed Last Taken Gabapentin [Neurontin] 100 mg PO QAM 10/12/18 10/12/18 Unknown Metoprolol [Lopressor TAB] 25 mg PO QAM 10/12/18 10/12/18 Unknown Pioglitazone HCl 15 mg PO QAM 10/12/18 10/12/18 Unknown Previous Rx's Medication Instructions Recorded Last Taken Type cefTRIAXone [Rocephin] 2 gm IV Q24H #23 vial 10/18/18 Unknown Rx Allergies Allergy/AdvReac Type Severity Reaction Status Date / Time Penicillins Allergy Dizziness Verified 12/26/14 02:05 ED Review of Systems ROS: Stated complaint: SEVERE ANEMIA REFER BY DR SIVA PHILLIPS Other details as noted in HPI Comment: All other systems reviewed and negative Constitutional: denies: chills, fever Eyes: denies: eye pain, eye discharge, vision change ENT: denies: ear pain, throat pain Respiratory: denies: cough, shortness of breath, wheezing Cardiovascular: denies: chest pain, palpitations Endocrine: no symptoms reported Gastrointestinal: denies: abdominal pain, nausea, diarrhea Genitourinary: denies: urgency, dysuria Musculoskeletal: denies: back pain, joint swelling, arthralgia Skin: denies: rash, lesions Neurological: denies: headache, weakness, paresthesias Psychiatric: denies: anxiety, depression Hematological/Lymphatic: denies: easy bleeding, easy bruising ED Past Medical Hx - Past Medical History Previous Medical History?: Yes Hx Hypertension: Yes Hx Diabetes: Yes Hx Deep Vein Thrombosis: No Hx Renal Disease: Yes - Surgical History Past Surgical History?: No Hx Pacemaker: No Hx Internal Defibrillator: No - Social History Smoking Status: Never Smoker - Medications Home Medications: Home Medications Medication Instructions Recorded Confirmed Last Taken Type Gabapentin [Neurontin] 100 mg PO QAM 10/12/18 10/12/18 Unknown History Metoprolol [Lopressor TAB] 25 mg PO QAM 10/12/18 10/12/18 Unknown History Pioglitazone HCl 15 mg PO QAM 10/12/18 10/12/18 Unknown History cefTRIAXone [Rocephin] 2 gm IV Q24H #23 vial 10/18/18 Unknown Rx ED Physical Exam - General Limitations: No Limitations General appearance: alert, in no apparent distress - Head Head exam: Present: atraumatic, normocephalic - Eye Eye exam: Present: normal appearance, PERRL, EOMI - ENT ENT exam: Present: mucous membranes moist - Neck Neck exam: Present: normal inspection - Respiratory Respiratory exam: Present: normal lung sounds bilaterally. Absent: respiratory distress - Cardiovascular Cardiovascular Exam: Present: regular rate, normal rhythm. Absent: systolic murmur, diastolic murmur, rubs, gallop - GI/Abdominal GI/Abdominal exam: Present: soft, normal bowel sounds. Absent: distended, tenderness - Rectal Rectal exam: Present: deferred - Extremities Exam Extremities exam: Present: normal inspection, other (pitting edema b/l) - Back Exam Back exam: Present: normal inspection - Neurological Exam Neurological exam: Present: alert, oriented X3, CN II-XII intact. Absent: motor sensory deficit - Psychiatric Psychiatric exam: Present: normal affect, normal mood - Skin Skin exam: Present: warm, dry, intact, normal color. Absent: rash ED Course Vital Signs 05/15/20 05/15/20 13:34 20:57 Temperature 97.2 F L Pulse Rate 86 81 Respiratory 18 16 Rate Blood Pressure 138/69 159/80 [Right] O2 Sat by Pulse 97 97 Oximetry ED Medical Decision Making - Lab Data Result diagrams: 05/15/20 19:16 05/15/20 19:16 Lab Results 05/15/20 05/15/20 05/15/20 Range/Units 19:16 19:16 19:16 WBC 8.3 (4.5-11.0) K/mm3 RBC 2.72 L (3.65-5.03) M/mm3 Hgb 8.2 L (11.8-15.2) gm/dl Hct 24.2 L (35.5-45.6) % MCV 89 (84-94) fl MCH 30 (28-32) pg MCHC 34 (32-34) % RDW 13.0 L (13.2-15.2) % Plt Count 251 (140-440) K/mm3 Lymph % (Auto) 13.7 (13.4-35.0) % [place] % (Auto) 10.5 H (0.0-7.3) % Eos % (Auto) 1.3 (0.0-4.3) % Baso % (Auto) 0.5 (0.0-1.8) % Lymph # (Auto) 1.1 L (1.2-5.4) K/mm3 [place] # (Auto) 0.9 H (0.0-0.8) K/mm3 Eos # (Auto) 0.1 (0.0-0.4) K/mm3 Baso # (Auto) 0.0 (0.0-0.1) K/mm3 Seg Neutrophils % 74.0 H (40.0-70.0) % Seg Neutrophils # 6.2 (1.8-7.7) K/mm3 PT 14.1 (12.2-14.9) Sec. INR 1.07 (0.87-1.13) APTT 29.4 (24.2-36.6) Sec. Sodium 140 (137-145) mmol/L Potassium 4.6 (3.6-5.0) mmol/L Chloride 101.2 (98-107) mmol/L Carbon Dioxide 23 (22-30) mmol/L Anion Gap 20 mmol/L BUN 72 H (9-20) mg/dL Creatinine 10.1 H (0.8-1.3) mg/dL Estimated GFR 6 ml/min BUN/Creatinine Ratio 7 % Glucose 129 H (75-100) mg/dL Calcium 8.5 (8.4-10.2) mg/dL Total Bilirubin 0.20 (0.1-1.2) mg/dL AST 25 (5-40) units/L ALT 33 (7-56) units/L Alkaline Phosphatase 130 H (35-129) units/L Total Protein 7.2 (6.3-8.2) g/dL Albumin 4.0 (3.9-5) g/dL Albumin/Globulin Ratio 1.3 % Blood Type Antibody Screen 05/15/20 Range/Units 19:16 WBC (4.5-11.0) K/mm3 RBC (3.65-5.03) M/mm3 Hgb (11.8-15.2) gm/dl Hct (35.5-45.6) % MCV (84-94) fl MCH (28-32) pg MCHC (32-34) % RDW (13.2-15.2) % Plt Count (140-440) K/mm3 Lymph % (Auto) (13.4-35.0) % [place] % (Auto) (0.0-7.3) % Eos % (Auto) (0.0-4.3) % Baso % (Auto) (0.0-1.8) % Lymph # (Auto) (1.2-5.4) K/mm3 [place] # (Auto) (0.0-0.8) K/mm3 Eos # (Auto) (0.0-0.4) K/mm3 Baso # (Auto) (0.0-0.1) K/mm3 Seg Neutrophils % (40.0-70.0) % Seg Neutrophils # (1.8-7.7) K/mm3 PT (12.2-14.9) Sec. INR (0.87-1.13) APTT (24.2-36.6) Sec. Sodium (137-145) mmol/L Potassium (3.6-5.0) mmol/L Chloride (98-107) mmol/L Carbon Dioxide (22-30) mmol/L Anion Gap mmol/L BUN (9-20) mg/dL Creatinine (0.8-1.3) mg/dL Estimated GFR ml/min BUN/Creatinine Ratio % Glucose (75-100) mg/dL Calcium (8.4-10.2) mg/dL Total Bilirubin (0.1-1.2) mg/dL AST (5-40) units/L ALT (7-56) units/L Alkaline Phosphatase (35-129) units/L Total Protein (6.3-8.2) g/dL Albumin (3.9-5) g/dL Albumin/Globulin Ratio % Blood Type B POSITIVE Antibody Screen Negative - Radiology Data Radiology results: report reviewed - Medical Decision Making Discussed plan of care with patient Spoke with Dr. Phillips and patient was discussed in detail. Plans for the patient have Vas-Cath placed to have dialysis started while admitted to the hospital. Critical care attestation.: If time is entered above; I have spent that time in minutes in the direct care of this critically ill patient, excluding procedure time. ED Disposition Clinical Impression: ESRD (end stage renal disease), ESRD needing dialysis Disposition: 09 OP ADMIT IP TO THIS HOSP Is pt being admited?: Yes Does the pt Need Aspirin: Yes Condition: Fair Referrals: PRIMARY CARE, [Referring] - 3-5 Days
[2020-05-15] MEDS ORDERED: ACETAMINOPHEN 325 MG TAB PO PRN (23:26)
[2020-05-15] MEDS ORDERED: ONDANSETRON 4 MG/2 ML INJ IV PRN (23:26)
[2020-05-15] MEDS ORDERED: DEXTROSE 50% IN WATER (25GM) 50 ML SYRINGE IV PRN (23:26)
[2020-05-15] MEDS ORDERED: MAGNESIUM HYDROXIDE (MOM) ORAL LIQD UDC PO PRN (23:26)
--- NOTE | 2020-05-15 23:39 | History and Physical Report ---
History of Present Illness Date of examination: 05/15/20 Date of admission: 05/15/2020 Chief complaint: Abnormal labs. History of present illness: 50-year-old male with known history of hypertension, diabetes and chronic kidney disease sent to the emergency room today by his indoor landscape architect Dr. Wang for abnormal lab values. Patient has also complained of progressive swelling of his lower extremities over the past few weeks. He denies any chest pain or shortness of breath, no nausea vomiting, no fever or chills, no headache or dizziness. BUN and creatinine is found to be worse than his baseline and nephrology feels that patient is due for dialysis. Dr. Vanegas has been consulted by the ER physician patient will be considered for dialysis after placement of Vas-Cath.in the a.m. Past History Past Medical History: diabetes, hypertension Past Surgical History: No surgical history Social history: no significant social history Family history: no significant family history Medications and Allergies Allergies Allergy/AdvReac Type Severity Reaction Status Date / Time Penicillins Allergy Dizziness Verified 12/26/14 02:05 Home Medications Medication Instructions Recorded Confirmed Last Taken Type Amlodipine Besylate [Norvasc] 10 mg PO DAILY 05/15/20 05/15/20 Unknown History Ferrous Sulfate [Iron 325 MG] 325 mg PO DAILY 05/15/20 05/15/20 Unknown History Furosemide [Lasix TAB] 80 mg PO BID 05/15/20 05/15/20 Unknown History Sodium Bicarbonate 1 tab PO BID 05/15/20 05/15/20 Unknown History calcitrioL [Rocaltrol] 1 mcg PO QDAY 05/15/20 05/15/20 Unknown History glipiZIDE [Glucotrol] 5 mg PO QDAY 05/15/20 05/15/20 Unknown History Active Meds: Active Medications Acetaminophen (Tylenol) 650 mg PO Q4H PRN PRN Reason: Pain MILD(1-3)/Fever >100.5/GRAY Dextrose (D50w (25gm) Syringe) 50 ml IV Q30MIN PRN; Protocol PRN Reason: Hypoglycemia Dextrose (D50w (25gm) Syringe) 50 ml IV Q30MIN PRN; Protocol PRN Reason: Hypoglycemia Heparin Sodium (Porcine) (Heparin) 5,000 unit SUB-Q Q8HR JOSÉ ANTONIO Insulin Human Lispro (Humalog) 0 unit SUB-Q ACHS JOSÉ ANTONIO; Protocol Insulin Human Lispro (Humalog) 0 unit SUB-Q ACHS JOSÉ ANTONIO; Protocol Magnesium Hydroxide (Milk Of Magnesia) 30 ml PO Q4H PRN PRN Reason: Constipation Ondansetron HCl (Zofran) 4 mg IV Q8H PRN PRN Reason: Nausea And Vomiting Sodium Chloride (Sodium Chloride Flush Syringe 10 Ml) 10 ml IV BID JOSÉ ANTONIO Sodium Chloride (Sodium Chloride Flush Syringe 10 Ml) 10 ml IV PRN PRN PRN Reason: LINE FLUSH Review of Systems Constitutional: no fever, no chills Cardiovascular: no chest pain, no palpitations Respiratory: no cough, no shortness of breath Gastrointestinal: no abdominal pain, no nausea, no vomiting, no diarrhea Genitourinary Male: no dysuria, no hematuria, no nocturia Musculoskeletal: no neck pain, no low back pain Integumentary: no rash, no pruritis Neurological: no headaches, no confusion Psychiatric: no anxiety, no depression Exam - Constitutional Vitals: Temp Pulse Resp BP Pulse Ox 97.2 F L 81 16 159/80 97 05/15/20 13:34 05/15/20 20:57 05/15/20 20:57 05/15/20 20:57 05/15/20 20:57 General appearance: Present: no acute distress, well-nourished - EENT Eyes: Present: PERRL, EOM intact. Absent: scleral icterus ENT: hearing intact, clear oral mucosa, dentition normal - Neck Neck: Present: supple, normal ROM - Respiratory Respiratory effort: normal Respiratory: bilateral: CTA - Cardiovascular Rhythm: regular Heart Sounds: Present: S1 & S2. Absent: gallop, systolic murmur, diastolic murmur, rub - Extremities Extremities: no ischemia, pulses intact, pulses symmetrical, No edema (2+ Bilateral lower extremity edema.), Full ROM Extremity abnormal: edema Peripheral Pulses: within normal limits - Abdominal General gastrointestinal: Present: soft, non-tender, non-distended, normal bowel sounds. Absent: mass - Integumentary Integumentary: Present: clear, warm, dry. Absent: rash - Musculoskeletal Musculoskeletal: strength equal bilaterally - Psychiatric Psychiatric: appropriate mood/affect, intact judgment & insight, memory intact, cooperative - Neurologic Neurologic: CNII-XII intact, no focal deficits, moves all extremities Results - Labs CBC & Chem 7: 05/15/20 19:16 11/12/20 19:16 Labs: Abnormal lab results 05/15/20 05/15/20 Range/Units 19:16 19:16 RBC 2.72 L (3.65-5.03) M/mm3 Hgb 8.2 L (11.8-15.2) gm/dl Hct 24.2 L (35.5-45.6) % RDW 13.0 L (13.2-15.2) % Fleming % (Auto) 10.5 H (0.0-7.3) % Lymph # (Auto) 1.1 L (1.2-5.4) K/mm3 Fleming # (Auto) 0.9 H (0.0-0.8) K/mm3 Seg Neutrophils % 74.0 H (40.0-70.0) % BUN 72 H (9-20) mg/dL Creatinine 10.1 H (0.8-1.3) mg/dL Glucose 129 H (75-100) mg/dL Alkaline Phosphatase 130 H (35-129) units/L Assessment and Plan - Patient Problems (1) ESRD (end stage renal disease) Current Visit: Yes Status: Acute Plan to address problem: Patient being followed by indoor landscape architect. Will be considered for dialysis in the a.m. (2) Hypertension Current Visit: No Status: Acute Plan to address problem: We will resume routine home medications and monitor vital signs closely. (3) Type 2 diabetes mellitus with diabetic chronic kidney disease Current Visit: No Status: Acute Plan to address problem: We will monitor Accu-Cheks. (4) DVT prophylaxis Current Visit: Yes Status: Acute Plan to address problem: Patient placed on sequential compression device.. (5) Full code status Current Visit: Yes Status: Acute
--- NOTE | 2020-05-16 00:07 | XRay Report ---
CHEST 1 VIEW INDICATION / CLINICAL INFORMATION: volume overload. COMPARISON: 10/16/2018 FINDINGS: SUPPORT DEVICES: None. HEART / MEDIASTINUM: No significant abnormality. LUNGS / PLEURA: Mild pulmonary vascular congestion is present but no overt interstitial pulmonary madeleine ma. The lungs are otherwise clear. No pleural effusion. No pneumothorax. ADDITIONAL FINDINGS: No significant additional findings. IMPRESSION: 1. Mild pulmonary vascular congestion without gavino interstitial pulmonary edema. Signer Name: Caity Dsouza MD Signed: 05/16/2020 12:03 AM Workstation Name: [id number]
[2020-05-16] MEDS ORDERED: HEPARIN 5,000 UNIT/1 ML VIAL SUB-Q SCH (06:00)
[2020-05-16 06:13] LABS: INR 1.07 (0.87-1.13)
[2020-05-16 06:37] LABS: Calcium 8.3 mg/dL (8.4-10.2)
[2020-05-16] MEDS ORDERED: INSULIN LISPRO 100 UNIT/ML VIAL 3 mL SUB-Q SCH (07:30)
[2020-05-16] MEDS: SODIUM BICARBONATE 650 MG TAB PO SCH ×2 (09:23→22:35)
[2020-05-16] MEDS: glipiZIDE 5 MG TAB PO SCH (09:23)
[2020-05-16] MEDS: FERROUS SULFATE 325 MG TAB PO SCH (09:23)
[2020-05-16] MEDS: CALCITRIOL 0.25 MCG CAP PO SCH (09:23)
[2020-05-16] MEDS: FUROSEMIDE 40 MG TAB PO SCH ×2 (09:28→18:19)
[2020-05-16] MEDS: INSULIN LISPRO 100 UNIT/ML VIAL 3 mL SUB-Q SCH ×4 (09:28→22:35)
[2020-05-16] MEDS ORDERED: NON-FORMULARY EACH (Furosemide [Lasix Tab] 80 MG) PO SCH (10:00)
[2020-05-16] MEDS ORDERED: amLODIPine 5 MG TAB PO SCH (10:00)
[2020-05-16] MEDS ORDERED: SODIUM CHLORIDE 0.9% 100 ML IV PRN ×2 (10:00→11:00)
--- NOTE | 2020-05-16 10:06 | Consultation ---
History of Present Illness - Reason for Consult chronic renal failure, end stage renal disease - History of Present Illness Pleasant 50 y/o male, with PMHx significant for progressive CKD V in the setting of DM, HTN, well known to our office as he is seen by my colleague Dr J Carlos Phillips, presented to the ED secondary to worsening renal function and concerns for uremia. Plan is for permcath placement and initiation of HD at this time. Past History Past Medical History: diabetes, hypertension Past Surgical History: No surgical history Social history: no significant social history Family history: no significant family history Medications and Allergies Allergies Allergy/AdvReac Type Severity Reaction Status Date / Time Penicillins Allergy Dizziness Verified 12/26/14 02:05 Home Medications Medication Instructions Recorded Confirmed Last Taken Type Amlodipine Besylate [Norvasc] 10 mg PO DAILY 05/15/20 05/15/20 Unknown History Ferrous Sulfate [Iron 325 MG] 325 mg PO DAILY 05/15/20 05/15/20 Unknown History Furosemide [Lasix TAB] 80 mg PO BID 05/15/20 05/15/20 Unknown History Sodium Bicarbonate 1 tab PO BID 05/15/20 05/15/20 Unknown History calcitrioL [Rocaltrol] 1 mcg PO QDAY 05/15/20 05/15/20 Unknown History glipiZIDE [Glucotrol] 5 mg PO QDAY 05/15/20 05/15/20 Unknown History Active Meds: Active Medications Acetaminophen (Tylenol) 650 mg PO Q4H PRN PRN Reason: Pain MILD(1-3)/Fever >100.5/GRAY Amlodipine Besylate (Amlodipine) 10 mg PO DAILY [facility] Calcitriol (Rocaltrol) 1 mcg PO QDAY [facility] Last Admin: 05/16/20 09:23 Dose: 1 mcg Documented by: Dextrose (D50w (25gm) Syringe) 0 ml IV Q30MIN PRN; Protocol PRN Reason: Hypoglycemia Ferrous Sulfate (Feosol) 325 mg PO DAILY [facility] Last Admin: 05/16/20 09:23 Dose: 325 mg Documented by: Furosemide (Lasix) 80 mg PO 0600,1800 [facility] Last Admin: 05/16/20 09:28 Dose: 80 mg Documented by: Glipizide (Glucotrol) 5 mg PO QAMDIAB [facility] Last Admin: 05/16/20 09:23 Dose: 5 mg Documented by: Sodium Chloride (Nacl 0.9%) 100 mls @ 999 mls/hr IV MAX PRN PRN Reason: Hypotension Insulin Human Lispro (Humalog) 0 unit SUB-Q ACHS [facility]; Protocol Last Admin: 05/16/20 09:28 Dose: Not Given Documented by: Magnesium Hydroxide (Milk Of Magnesia) 30 ml PO Q4H PRN PRN Reason: Constipation Ondansetron HCl (Zofran) 4 mg IV Q8H PRN PRN Reason: Nausea And Vomiting Sodium Bicarbonate (Sodium Bicarbonate) 650 mg PO BID [facility] Last Admin: 05/16/20 09:23 Dose: 650 mg Documented by: Sodium Chloride (Sodium Chloride Flush Syringe 10 Ml) 10 ml IV BID [facility] Last Admin: 05/16/20 09:23 Dose: 10 ml Documented by: Sodium Chloride (Sodium Chloride Flush Syringe 10 Ml) 10 ml IV PRN PRN PRN Reason: LINE FLUSH Review of Systems All systems: negative Constitutional: fatigue, weakness Exam - Vital Signs Vital signs: Vital Signs Temp Pulse Resp BP Pulse Ox 97.2 F L 86 18 138/69 97 05/15/20 13:34 05/15/20 13:34 05/15/20 13:34 05/15/20 13:34 05/15/20 13:34 - General Appearance General appearance: well-developed, well-nourished, appears stated age EENT: ATNC Neck: Present: neck supple, trachea midline Respiratory: Clear to Ascultation Heart: regular, S1S2 Gastrointestinal: Present: normal, normoactive bowel sounds Integumentary: no rash, warm and dry Neurologic: no focal deficit, alert and oriented x3 Psychiatric: cooperative Results - Lab Results 05/15/20 19:16 05/16/20 05:14 Most recent lab results Calcium 8.3 mg/dL (8.4-10.2) L 05/16/20 05:14 Assessment and Plan - Patient Problems (1) CKD (chronic kidney disease), stage V Current Visit: Yes Status: Chronic Plan to address problem: With worsening renal function, and concerns for uremia, we will plan to initiate HD while he his inpatient. Explained to him that we will need permcath placement for HD needs and then as an outpatient need to set up appointment with vascular surgery for AVF creation. Will place orders for HD x 2 [address] then place on [facility] inpatient HD schedule. Will need to consult case management for outpatient HD placement. (2) Volume overload Current Visit: Yes Status: Chronic Plan to address problem: Optimize volume status with HD. 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 (4) Anemia in chronic illness Current Visit: No Status: Chronic Plan to address problem: Will initiate VAL therapy with HD as an outpatient. (5) Type 2 diabetes mellitus with diabetic chronic kidney disease Current Visit: No Status: Chronic Qualifiers: Chronic kidney disease stage: stage 5, not on chronic dialysis Plan to address problem: DM management per primary attending.
[2020-05-16] MEDS ORDERED: FLU VACC QUAD 2020-2021 (6 months +)/PF 60 0.5 ML SYRINGE IM ONE (12:00)
[2020-05-16 13:53] LABS: Hepatitis B Surface Antigen Non-Reactive (Negative); Hepatitis C Virus Antibody Non-Reactive (NonReactive)
--- NOTE | 2020-05-16 16:31 | Progress Note ---
Assessment and Plan -- ESRD (end stage renal disease) Patient being followed by disease intervention specialist. Will be considered for dialysis vascular consulted for HD access --Hypertension Resume routine home medications and monitor vital signs closely. -- Type 2 diabetes mellitus with diabetic chronic kidney disease monitor Accu-Cheks with SSI. -- DVT prophylaxis Patient placed on sequential compression device.. -- Full code status 05/16: plan to start HD, waiting on vascular access by vascular Subjective Date of service: 05/16/20 Interval history: Patient seen and examined. Medical records and medication list reviewed. No acute event overnight noted by the RN. Patient denies any chest pain or difficulty breathing. Patient is tolerating diet. Discussed plan of care at bedside with patient. Objective - Exam Narrative Exam: GENERAL: well-developed and well-nourished male lying on bed appeared to be in no discomfort. HEENT: Normocephalic. Atraumatic. No conjunctival congestion or icterus. Babita ent has moist mucous membranes. NECK: Supple. Trachea midline. CHEST/LUNGS: Clear to auscultated bilaterally, breathing nonlabored. No wheezes crackles or rhonchi. HEART/CARDIOVASCULAR: Regular in rate and rhythm. S1 and S2 positive. ABDOMEN: Abdomen is soft, nontender. Patient has normal bowel sounds. SKIN: There is no rash. Warm and dry. NEURO: No focal motor deficit. Follows command. MUSCULOSKELETAL: No joint effusion or tenderness. EXTRIMITY: No edema, no cyanosis or clubbing. PSYCH: Cooperative. - Constitutional Vitals: Vital Signs - 12hr 05/16/20 05/16/20 05/16/20 04:40 07:49 11:26 Temperature 98.0 F 98.1 F Pulse Rate 81 79 85 Respiratory 20 20 Rate Blood Pressure 146/81 143/77 148/82 O2 Sat by Pulse 98 97 100 Oximetry 05/16/20 15:41 Temperature 98.0 F Pulse Rate 87 Respiratory 18 Rate Blood Pressure 143/76 O2 Sat by Pulse 100 Oximetry - Labs CBC & Chem 7: 05/15/20 19:16 05/17/20 13:55 Labs: Abnormal lab results 05/15/20 05/15/20 05/16/20 Range/Units 19:16 19:16 05:14 RBC 2.72 L (3.65-5.03) M/mm3 Hgb 8.2 L (11.8-15.2) gm/dl Hct 24.2 L (35.5-45.6) % RDW 13.0 L (13.2-15.2) % Towns % (Auto) 10.5 H (0.0-7.3) % Lymph # (Auto) 1.1 L (1.2-5.4) K/mm3 Towns # (Auto) 0.9 H (0.0-0.8) K/mm3 Seg Neutrophils % 74.0 H (40.0-70.0) % BUN 72 H 77 H (9-20) mg/dL Creatinine 10.1 H 10.1 H (0.8-1.3) mg/dL Glucose 129 H 173 H (75-100) mg/dL POC Glucose (70-105) mg/dL Calcium 8.3 L (8.4-10.2) mg/dL Alkaline Phosphatase 130 H (35-129) units/L 05/16/20 05/16/20 05/16/20 Range/Units 09:25 11:45 16:13 RBC (3.65-5.03) M/mm3 Hgb (11.8-15.2) gm/dl Hct (35.5-45.6) % RDW (13.2-15.2) % Towns % (Auto) (0.0-7.3) % Lymph # (Auto) (1.2-5.4) K/mm3 Towns # (Auto) (0.0-0.8) K/mm3 Seg Neutrophils % (40.0-70.0) % BUN (9-20) mg/dL Creatinine (0.8-1.3) mg/dL Glucose (75-100) mg/dL POC Glucose 124 H 171 H 59 L (70-105) mg/dL Calcium (8.4-10.2) mg/dL Alkaline Phosphatase (35-129) units/L
[2020-05-17] MEDS: FUROSEMIDE 40 MG TAB PO SCH ×2 (06:55→17:50)
[2020-05-17] MEDS: INSULIN LISPRO 100 UNIT/ML VIAL 3 mL SUB-Q SCH ×4 (07:30→22:10)
[2020-05-17] MEDS: glipiZIDE 5 MG TAB PO SCH (09:55)
[2020-05-17] MEDS: amLODIPine 10 MG TAB PO SCH (09:55)
[2020-05-17] MEDS: FERROUS SULFATE 325 MG TAB PO SCH (09:55)
[2020-05-17] MEDS: SODIUM BICARBONATE 650 MG TAB PO SCH ×2 (09:56→21:12)
[2020-05-17] MEDS: CALCITRIOL 0.25 MCG CAP PO SCH (09:56)
--- NOTE | 2020-05-17 10:38 | Progress Note ---
Assessment and Plan - Patient Problems (1) CKD (chronic kidney disease), stage V Current Visit: Yes Status: Chronic Plan to address problem: Chronic kidney disease stage V progressed to end-stage renal disease. Need to initiate dialysis (2) Hypertensive chronic kidney disease with stage 5 chronic kidney disease or end stage renal disease Current Visit: Yes Status: Chronic Plan to address problem: Follow-up blood pressure on current medications (3) Anemia in chronic illness Current Visit: No Status: Chronic Plan to address problem: Continue erythropoietin with dialysis and follow-up hemoglobin (4) Type 2 diabetes mellitus with diabetic chronic kidney disease Current Visit: No Status: Chronic Qualifiers: Chronic kidney disease stage: stage 5, not on chronic dialysis Plan to address problem: Blood sugar management per primary attending Subjective Date of service: 05/17/20 Principal diagnosis: Chronic kidney disease stage V, anemia, hypertension Interval history: Patient seen lying in bed. He has no complaints this morning. No chest pain or shortness Objective - Exam Narrative Exam: Middle-aged male lying in bed in no acute distress HEENT: NCAT, pink oral mucous membrane Neck: Supple, no venous distention CVS: S1S2 RRR with no murmur, rub or gallop Chest: Clear to auscultation Abdomen: Protuberant, soft, nontender, no organomegaly, bowel sounds are present Extremities: No edema Genitourinary deferred Skin warm and dry Neuro: Awake, alert no focal deficits - Vital Signs Vital signs: Vital Signs - 12hr 05/16/20 05/17/20 05/17/20 22:55 03:50 08:00 Temperature 97.9 F 97.8 F 98.5 F Pulse Rate 88 85 85 Respiratory 18 18 18 Rate Blood Pressure 159/85 154/84 142/75 O2 Sat by Pulse 100 97 99 Oximetry - Lab 05/15/20 19:16 05/16/20 05:14 Most recent lab results Calcium 8.3 mg/dL (8.4-10.2) L 05/16/20 05:14 Medications & Allergies - Medications Allergies/Adverse Reactions: Allergies Penicillins Allergy (Verified 12/26/14 02:05) Dizziness Home Medications: Home Medications Medication Instructions Recorded Confirmed Last Taken Type Amlodipine Besylate [Norvasc] 10 mg PO DAILY 05/15/20 05/15/20 Unknown History Ferrous Sulfate [Iron 325 MG] 325 mg PO DAILY 05/15/20 05/15/20 Unknown History Furosemide [Lasix TAB] 80 mg PO BID 05/15/20 05/15/20 Unknown History Sodium Bicarbonate 1 tab PO BID 05/15/20 05/15/20 Unknown History calcitrioL [Rocaltrol] 1 mcg PO QDAY 05/15/20 05/15/20 Unknown History glipiZIDE [Glucotrol] 5 mg PO QDAY 05/15/20 05/15/20 Unknown History Active Medications: Generic Name Dose Route Start Last Admin Trade Name Freq PRN Reason Stop Dose Admin Acetaminophen 650 mg 05/15/20 23:26 Tylenol PO Q4H PRN Pain MILD(1-3)/Fever >100.5/GRAY Amlodipine Besylate 10 mg 05/17/20 10:00 05/17/20 09:55 Amlodipine PO 10 mg DAILY JOSÉ ANTONIO Administration Calcitriol 1 mcg 05/16/20 10:00 05/17/20 09:56 Rocaltrol PO 1 mcg QDAY JOSÉ ANTONIO Administration Dextrose 0 ml 05/15/20 23:26 D50w (25gm) Syringe IV Q30MIN PRN Hypoglycemia Protocol Ferrous Sulfate 325 mg 05/16/20 10:00 05/17/20 09:55 Feosol PO 325 mg DAILY JOSÉ ANTONIO Administration Furosemide 80 mg 05/16/20 08:00 05/17/20 06:55 Lasix PO 80 mg 0600,1800 JOSÉ ANTONIO Administration Glipizide 5 mg 05/16/20 08:00 05/17/20 09:55 Glucotrol PO 5 mg QAMDIAB JOSÉ ANTONIO Administration Sodium Chloride 100 mls @ 999 mls/hr 05/16/20 11:00 Nacl 0.9% IV MAX PRN Hypotension Insulin Human Lispro 0 unit 05/16/20 07:30 05/17/20 07:30 Humalog SUB-Q Not Given ACHS JOSÉ ANTONIO Protocol Magnesium Hydroxide 30 ml 05/15/20 23:26 Milk Of Magnesia PO Q4H PRN Constipation Ondansetron HCl 4 mg 05/15/20 23:26 Zofran IV Q8H PRN Nausea And Vomiting Sodium Bicarbonate 650 mg 05/16/20 10:00 05/17/20 09:56 Sodium Bicarbonate PO 650 mg BID JOSÉ ANTONIO Administration Sodium Chloride 10 ml 05/16/20 10:00 05/17/20 09:56 Sodium Chloride Flush Syringe 10 Ml IV 10 ml BID JOSÉ ANTONIO Administration Sodium Chloride 10 ml 05/15/20 23:26 Sodium Chloride Flush Syringe 10 Ml IV PRN PRN LINE FLUSH
--- NOTE | 2020-05-17 13:02 | Progress Note ---
Assessment and Plan -- ESRD (end stage renal disease) Patient being followed by tool design draftsperson. Will be considered for dialysis vascular consulted for HD access --Hypertension Resume routine home medications and monitor vital signs closely. -- Type 2 diabetes mellitus with diabetic chronic kidney disease monitor Accu-Cheks with SSI. -- DVT prophylaxis Patient placed on sequential compression device.. -- Full code status 05/16: plan to start HD, waiting on vascular access by vascular 05/17: waiting on vascular access by vascular Subjective Date of service: 05/17/20 Principal diagnosis: Chronic kidney disease stage V, anemia, hypertension Interval history: Patient seen and examined. Medical records and medication list reviewed. No acute event overnight noted by the RN. Patient denies any chest pain or difficulty breathing. Patient is tolerating diet. Discussed plan of care at bedside with patient. Objective - Exam Narrative Exam: GENERAL: well-developed and well-nourished male lying on bed appeared to be in no discomfort. HEENT: Normocephalic. Atraumatic. No conjunctival congestion or icterus. Patient has moist mucous membranes. NECK: Supple. Trachea midline. CHEST/LUNGS: Clear to auscultated bilaterally, breathing nonlabored. No wheezes crackles or rhonchi. HEART/CARDIOVASCULAR: Regular in rate and rhythm. S1 and S2 positive. ABDOMEN: Abdomen is soft, nontender. Patient has normal bowel sounds. SKIN: There is no rash. Warm and dry. NEURO: No focal motor deficit. Follows command. MUSCULOSKELETAL: No joint effusion or tenderness. EXTRIMITY: No edema, no cyanosis or clubbing. PSYCH: Cooperative. - Constitutional Vitals: Vital Signs - 12hr 05/17/20 05/17/20 05/17/20 03:50 08:00 11:36 Temperature 97.8 F 98.5 F 98.0 F Pulse Rate 85 85 87 Respiratory 18 18 18 Rate Blood Pressure 154/84 142/75 157/80 O2 Sat by Pulse 97 99 99 Oximetry - Labs CBC & Chem 7: 05/15/20 19:16 05/17/20 13:55 Labs: Abnormal lab results 05/16/20 05/16/20 05/17/20 Range/Units 16:13 21:37 11:51 POC Glucose 59 L 212 H 167 H (70-105) mg/dL
[2020-05-17 14:43] LABS: Calcium 8.7 mg/dL (8.4-10.2)
--- NOTE | 2020-05-17 15:02 | Consultation ---
History of Present Illness - Reason for Consult Consult date: 05/24/20 Permacath Insertion Requesting physician: WILD RONDON - History of Present Illness The patient is a 50-year-old male with a history of hypertension, diabetes, and chronic renal insufficiency who was admitted to the hospital with complaints of bilateral lower extremity swelling and worsening of his renal failure. Labs revealed that he is in end-stage renal disease and in need of initiation of he modialysis. He denies any shortness of breath or chest pain. He has no additional complaints at this time. Past History Past Medical History: diabetes, hypertension, renal failure Past Surgical History: No surgical history Social history: no significant social history Family history: no significant family history Medications and Allergies Allergies Allergy/AdvReac Type Severity Reaction Status Date / Time Penicillins Allergy Dizziness Verified 12/26/14 02:05 Home Medications Medication Instructions Recorded Confirmed Last Taken Type Amlodipine Besylate [Norvasc] 10 mg PO DAILY 05/15/20 05/15/20 Unknown History Ferrous Sulfate [Iron 325 MG] 325 mg PO DAILY 05/15/20 05/15/20 Unknown History Furosemide [Lasix TAB] 80 mg PO BID 05/15/20 05/15/20 Unknown History Sodium Bicarbonate 1 tab PO BID 05/15/20 05/15/20 Unknown History calcitrioL [Rocaltrol] 1 mcg PO QDAY 05/15/20 05/15/20 Unknown History glipiZIDE [Glucotrol] 5 mg PO QDAY 05/15/20 05/15/20 Unknown History Active Meds: Active Medications Acetaminophen (Tylenol) 650 mg PO Q4H PRN PRN Reason: Pain MILD(1-3)/Fever >100.5/GRAY Amlodipine Besylate (Amlodipine) 10 mg PO DAILY [facility] Last Admin: 05/17/20 09:55 Dose: 10 mg Documented by: Calcitriol (Rocaltrol) 1 mcg PO QDAY [facility] Last Admin: 05/17/20 09:56 Dose: 1 mcg Documented by: Dextrose (D50w (25gm) Syringe) 0 ml IV Q30MIN PRN; Protocol PRN Reason: Hypoglycemia Ferrous Sulfate (Feosol) 325 mg PO DAILY [facility] Last Admin: 05/17/20 09:55 Dose: 325 mg Documented by: Furosemide (Lasix) 80 mg PO 0600,1800 [facility] Last Admin: 05/17/20 06:55 Dose: 80 mg Documented by: Glipizide (Glucotrol) 5 mg PO QAMDIAB [facility] Last Admin: 05/17/20 09:55 Dose: 5 mg Documented by: Sodium Chloride (Nacl 0.9%) 100 mls @ 999 mls/hr IV MAX PRN PRN Reason: Hypotension Insulin Human Lispro (Humalog) 0 unit SUB-Q ACHS [facility]; Protocol Last Admin: 05/17/20 12:01 Dose: Not Given Documented by: Magnesium Hydroxide (Milk Of Magnesia) 30 ml PO Q4H PRN PRN Reason: Constipation Ondansetron HCl (Zofran) 4 mg IV Q8H PRN PRN Reason: Nausea And Vomiting Sodium Bicarbonate (Sodium Bicarbonate) 650 mg PO BID [facility] Last Admin: 05/17/20 09:56 Dose: 650 mg Documented by: Sodium Chloride (Sodium Chloride Flush Syringe 10 Ml) 10 ml IV BID [facility] Last Admin: 05/17/20 09:56 Dose: 10 ml Documented by: Sodium Chloride (Sodium Chloride Flush Syringe 10 Ml) 10 ml IV PRN PRN PRN Reason: LINE FLUSH Review of Systems All systems: negative Exam - Constitutional Vitals: Temp Pulse Resp BP Pulse Ox 98.0 F 87 18 157/80 99 05/17/20 11:36 05/17/20 11:36 05/17/20 11:36 05/17/20 11:36 05/17/20 11:36 General appearance: Present: no acute distress - Neck Neck: Present: supple - Cardiovascular Rhythm: regular - Extremities Extremities: no ischemia, pulses intact - Abdominal General gastrointestinal: Present: soft, non-tender, non-distended Male genitourinary: Present: deferred - Rectal Rectal Exam: deferred Results - Labs CBC & Chem 7: 05/15/20 19:16 05/17/20 13:55 Labs: Abnormal lab results 05/16/20 05/16/20 05/17/20 Range/Units 16:13 21:37 11:51 BUN (9-20) mg/dL Creatinine (0.8-1.3) mg/dL POC Glucose 59 L 212 H 167 H (70-105) mg/dL 05/17/20 Range/Units 13:55 BUN 71 H (9-20) mg/dL Creatinine 10.0 H (0.8-1.3) mg/dL POC Glucose (70-105) mg/dL Assessment and Plan The patient is a 50-year-old male with a history of hypertension, diabetes, and chronic renal insufficiency. He has progressed to end-stage renal disease and is in need of initiation of hemodialysis. The patient expressed some confusion as he thought he was being admitted for creation of an arteriovenous fistula. He is a [place] speaking male but does speak some Turkish however I used the diamond broker line to have a discussion with the patient about the need of permacath placement. I discussed that a fistula will require 6 to 8 weeks prior to being used and an arteriovenous graft will require at least 2 weeks prior to use. I informed the patient that the permacath would allow him to undergo dialysis immediately. The patient was unsure if he wanted permacath placement however after our discussion with the diamond broker he expressed understanding of the risk, benefits, and alternatives as well as the need for permacath placement prior to permanent access placement and has agreed to proceed with permacath placement. Although the patient has been admitted for his renal failure he has no hyperkale d[place] or shortness of breath to indicate that he needs emergent dialysis. The [facility]ter is short staffed and performing emergent procedures on the weekend. I discussed this with Dr. Mcclain who is okay with waiting until Tuesday to place the permacath, however if an emergent procedure presents and requires the Partition Setter to come in I will schedule the patient for permacath placement and placed the permacath at that time.
[2020-05-18] MEDS: FUROSEMIDE 40 MG TAB PO SCH ×2 (05:25→18:02)
[2020-05-18] MEDS: INSULIN LISPRO 100 UNIT/ML VIAL 3 mL SUB-Q SCH ×4 (08:00→22:00)
[2020-05-18] MEDS: CALCITRIOL 0.25 MCG CAP PO SCH (12:25)
[2020-05-18] MEDS: glipiZIDE 5 MG TAB PO SCH (12:25)
[2020-05-18] MEDS: amLODIPine 10 MG TAB PO SCH (12:26)
[2020-05-18] MEDS: FERROUS SULFATE 325 MG TAB PO SCH (12:29)
[2020-05-18] MEDS: SODIUM BICARBONATE 650 MG TAB PO SCH ×2 (12:36→21:24)
--- NOTE | 2020-05-18 15:26 | Progress Note ---
Assessment and Plan - Patient Problems (1) CKD (chronic kidney disease), stage V Current Visit: Yes Status: Chronic Plan to address problem: Chronic kidney disease stage V progressed to end-stage renal disease. Need to initiate dialysis. Unable to get line placed over the weekend. For permacath in the morning and then hemodialysis thereafter. manager mental health to arrange for outpatient dialysis (2) Hypertensive chronic kidney disease with stage 5 chronic kidney disease or end stage renal disease Current Visit: Yes Status: Chronic Plan to address problem: Follow-up blood pressure on current medications (3) Anemia in chronic illness Current Visit: No Status: Chronic Plan to address problem: Continue erythropoietin with dialysis and follow-up hemoglobin (4) Type 2 diabetes mellitus with diabetic chronic kidney disease Current Visit: No Status: Chronic Qualifiers: Chronic kidney disease stage: stage 5, not on chronic dialysis Plan to address problem: Blood sugar management per primary attending Subjective Date of service: 05/18/20 Principal diagnosis: Chronic kidney disease stage V, anemia, hypertension Interval history: Patient seen lying in bed. He has no complaints this morning. No chest pain or shortness Objective - Exam Narrative Exam: Middle-aged male lying in bed in no acute distress HEENT: NCAT, pink oral mucous membrane Neck: Supple, no venous distention CVS: S1S2 RRR with no murmur, rub or gallop Chest: Clear to auscultation Abdomen: Protuberant, soft, nontender, no organomegaly, bowel sounds are present Extremities: No edema Genitourinary deferred Skin warm and dry Neuro: Awake, alert no focal deficits - Vital Signs Vital signs: Vital Signs - 12hr 05/18/20 05/18/20 05/18/20 04:29 08:08 11:56 Temperature 99.2 F 98.5 F 100.4 F H Pulse Rate 84 84 80 Respiratory 18 16 18 Rate Blood Pressure 151/84 145/79 Blood Pressure 163/83 [Right] O2 Sat by Pulse 98 98 98 Oximetry 05/18/20 12:26 Temperature Pulse Rate 80 Respiratory Rate Blood Pressure Blood Pressure [Right] O2 Sat by Pulse Oximetry - Lab 05/15/20 19:16 05/17/20 13:55 Most recent lab results Calcium 8.7 mg/dL (8.4-10.2) 05/17/20 13:55 Medications & Allergies - Medications Allergies/Adverse Reactions: Allergies Penicillins Allergy (Verified 12/26/14 02:05) Dizziness Home Medications: Home Medications Medication Instructions Recorded Confirmed Last Taken Type Amlodipine Besylate [Norvasc] 10 mg PO DAILY 05/15/20 05/15/20 Unknown History Ferrous Sulfate [Iron 325 MG] 325 mg PO DAILY 05/15/20 05/15/20 Unknown History Furosemide [Lasix TAB] 80 mg PO BID 05/15/20 05/15/20 Unknown History Sodium Bicarbonate 1 tab PO BID 05/15/20 05/15/20 Unknown History calcitrioL [Rocaltrol] 1 mcg PO QDAY 05/15/20 05/15/20 Unknown History glipiZIDE [Glucotrol] 5 mg PO QDAY 05/15/20 05/15/20 Unknown History Active Medications: Generic Name Dose Route Start Last Admin Trade Name Freq PRN Reason Stop Dose Admin Acetaminophen 650 mg 05/15/20 23:26 Tylenol PO Q4H PRN Pain MILD(1-3)/Fever >100.5/GRAY Amlodipine Besylate 10 mg 05/17/20 10:00 05/18/20 12:26 Amlodipine PO 10 mg DAILY JOSÉ ANTONIO Administration Calcitriol 1 mcg 05/16/20 10:00 05/18/20 12:25 Rocaltrol PO 1 mcg QDAY JOSÉ ANTONIO Administration Carvedilol 3.125 mg 05/18/20 22:00 Coreg PO BID JOSÉ ANTONIO Dextrose 0 ml 05/15/20 23:26 D50w (25gm) Syringe IV Q30MIN PRN Hypoglycemia Protocol Ferrous Sulfate 325 mg 05/16/20 10:00 05/18/20 12:29 Feosol PO 325 mg DAILY JOSÉ ANTONIO Administration Furosemide 80 mg 05/16/20 08:00 05/18/20 05:25 Lasix PO 80 mg 0600,1800 JOSÉ ANTONIO Administration Glipizide 5 mg 05/16/20 08:00 05/18/20 12:25 Glucotrol PO 5 mg QAMDIAB JOSÉ ANTONIO Administration Sodium Chloride 100 mls @ 999 mls/hr 05/16/20 11:00 Nacl 0.9% IV MAX PRN Hypotension Insulin Human Lispro 0 unit 05/16/20 07:30 05/18/20 13:17 Humalog SUB-Q 2 unit ACHS JOSÉ ANTONIO Administration Protocol Magnesium Hydroxide 30 ml 05/15/20 23:26 Milk Of Magnesia PO Q4H PRN Constipation Ondansetron HCl 4 mg 05/15/20 23:26 Zofran IV Q8H PRN Nausea And Vomiting Sodium Bicarbonate 650 mg 05/16/20 10:00 05/18/20 12:36 Sodium Bicarbonate PO 650 mg BID JOSÉ ANTONIO Administration Sodium Chloride 10 ml 05/16/20 10:00 05/18/20 12:30 Sodium Chloride Flush Syringe 10 Ml IV 10 ml BID JOSÉ ANTONIO Administration Sodium Chloride 10 ml 05/15/20 23:26 Sodium Chloride Flush Syringe 10 Ml IV PRN PRN LINE FLUSH
--- NOTE | 2020-05-18 17:52 | Progress Note ---
Assessment and Plan -- ESRD (end stage renal disease) Patient being followed by car unloader helper. Will be considered for dialysis vascular consulted for HD access --Hypertension Resume routine home medications and monitor vital signs closely. -- Type 2 diabetes mellitus with diabetic chronic kidney disease monitor Accu-Cheks with SSI. -- DVT prophylaxis Patient placed on sequential compression device.. -- Full code status 05/16: plan to start HD, waiting on vascular access by vascular 05/17: waiting on vascular access by vascular 05/18: Plan for PermCath placement tomorrow, continue to monitor clinically Subjective Date of service: 05/18/20 Principal diagnosis: Chronic kidney disease stage V, anemia, hypertension Interval history: Patient seen and examined. Medical records and medication list reviewed. No acute event overnight noted by the RN. Patient denies any chest pain or difficulty breathing. Patient is tolerating diet. Discussed plan of care at bedside with patient. Objective - Exam Narrative Exam: GENERAL: well-developed and well-nourished male lying on bed appeared to be in no discomfort. HEENT: Normocephalic. Atraumatic. No conjunctival congestion or icterus. Patient has moist mucous membranes. NECK: Supple. Trachea midline. CHEST/LUNGS: Clear to auscultated bilaterally, breathing nonlabored. No wheezes crackles or rhonchi. HEART/CARDIOVASCULAR: Regular in rate and rhythm. S1 and S2 positive. ABDOMEN: Abdomen is soft, nontender. Patient has normal bowel sounds. SKIN: There is no rash. Warm and dry. NEURO: No focal motor deficit. Follows command. MUSCULOSKELETAL: No joint effusion or tenderness. EXTRIMITY: No edema, no cyanosis or clubbing. PSYCH: Cooperative. - Constitutional Vitals: Vital Signs - 12hr 05/18/20 05/18/20 05/18/20 08:08 11:56 12:26 Temperature 98.5 F 100.4 F H Pulse Rate 84 80 80 Respiratory 16 18 Rate Blood Pressure 145/79 Blood Pressure 163/83 [Right] O2 Sat by Pulse 98 98 Oximetry 05/18/20 16:27 Temperature 98.6 F Pulse Rate 18 L Respiratory 18 Rate Blood Pressure Blood Pressure 144/77 [Right] O2 Sat by Pulse 94 Oximetry - Labs CBC & Chem 7: 05/15/20 19:16 05/17/20 13:55 Labs: Abnormal lab results 05/17/20 05/18/20 05/18/20 Range/Units 22:03 11:51 16:12 POC Glucose 221 H 184 H 118 H (70-105) mg/dL
[2020-05-18] MEDS: carvediloL 3.125 MG TAB PO SCH (21:24)
[2020-05-19] MEDS: FUROSEMIDE 40 MG TAB PO SCH ×2 (05:21→19:59)
[2020-05-19] MEDS ORDERED: SODIUM CHLORIDE 0.9% 500 ML 500 ML ONE (09:55)
[2020-05-19] MEDS ORDERED: SODIUM CHLORIDE 0.9% 500 ML 500 ML IV SCH (10:00)
[2020-05-19] MEDS ORDERED: HEPARIN/NS 5000 UNIT/500ML 500 ML IR ONE (10:00)
[2020-05-19] MEDS ORDERED: SODIUM CHLORIDE 0.9% 250ML 0 ML ONE (10:00)
[2020-05-19] MEDS ORDERED: MIDAZOLAM 2 MG/2 ML INJ ONE (10:00)
[2020-05-19] MEDS ORDERED: fentaNYL 100 MCG/2 ML INJ ONE (10:00)
[2020-05-19] MEDS: carvediloL 3.125 MG TAB PO SCH ×2 (10:05→21:14)
[2020-05-19] MEDS: FERROUS SULFATE 325 MG TAB PO SCH (10:05)
[2020-05-19] MEDS: SODIUM BICARBONATE 650 MG TAB PO SCH ×2 (10:05→21:15)
[2020-05-19] MEDS: CALCITRIOL 0.25 MCG CAP PO SCH (10:05)
[2020-05-19] MEDS: LIDOCAINE 1%/EPINEPHRINE 1:100,000 VIAL (20 ML) INFILTRATI ONE ×2 (10:42→10:46)
[2020-05-19] MEDS: HEPARIN 10,000 UNITS/10 ML VIAL ONE ×4 (10:51→10:54)
[2020-05-19] MEDS ORDERED: SODIUM CHLORIDE 0.9% 100 ML IV PRN (10:56)
[2020-05-19] MEDS: VANCOMYCIN/NS 1 GM/250 ML 1 GM/250 ML BAG IV NR ×2 (10:57→11:00)
--- NOTE | 2020-05-19 11:41 | Operative Report ---
Operative Report Operative Report: EXAM: 1. Ultrasound-guided puncture of the right internal jugular vein 2. Fluoroscopic-guided placement of a right internal jugular tunneled cuffed hemodialysis catheter. DATE: 05/19/2020 INDICATION: End-stage renal disease requiring hemodialysis access. MEDICATIONS: Please see nursing report for full details. DEVICES: 23 cm tip to cuff 15 Fr dual lumen hemodialysis catheter JAVA PROJECT MANAGER: MARIA C OMALLEY MD CONTRAST: None PROCEDURE: The risks, benefits, and alternatives were discussed and informed consent was obtained. The patient was transported to the angiography suite in satisfactory/stable condition and was transported onto the angiography table. The patient's right internal jugular vein was assessed with ultrasound and determined to be patent prior to procedure. The patient was prepped and draped in a sterile fashion. The puncture site was anesthetized. Under sonographic guidance, the right internal jugular vein was punctured with a 21-gauge micropuncture needle and a 0.018 inch wire was advanced into the inferior vena cava. The micropuncture needle was exchanged for a transitional dilator and the wire was retracted into the right atrium to martita intravascular distance. The wire and inner dilator were removed. 0.035 inch wire was advanced through the transitional dilator into the inferior vena cava. A suitable exit site was identified on the patient's chest inferior and lateral to the venotomy. The site was anesthetized with local anesthetic and the track was anesthetized. Dermatotomy was made. The PermCath was attached to the tunneling device and tunneled between the dermatotomy to the venotomy. Over the 0.035 inch wire, serial dilatation was performed with ultimate placement of a peel-away sheath. The catheter was advanced through the peel- away sheath after the wire was removed and positioned centrally under fluoroscopic guidance. The peel-away sheath was removed. 4-0 Vicryl suture was used to close the venotomy and Dermabond was then applied. 2-0 Ethilon suture was used to secure the catheter at the dermatotomy. The catheter was charged with heparin 1000 units/mL of space. Sterile dressing and Biopatch applied. The patient was transferred from the angiography suite back to the floor in stable condition. FINDINGS: 1. Excellent flow was obtained through the dialysis catheter with 20 mL syringes. 2. The catheter tip is in the right atrium. IMPRESSION: 1. Successful ultrasound and fluoroscopically guided placement of a right internal jugular tunneled cuffed hemodialysis catheter.
[2020-05-19] MEDS: INSULIN LISPRO 100 UNIT/ML VIAL 3 mL SUB-Q SCH ×4 (13:54→21:14)
[2020-05-19] MEDS: amLODIPine 10 MG TAB PO SCH (13:55)
[2020-05-19] MEDS: glipiZIDE 5 MG TAB PO SCH (13:55)
--- NOTE | 2020-05-19 15:05 | Progress Note ---
Assessment and Plan -- ESRD (end stage renal disease) Patient being followed by logistics coordinator. Will be considered for dialysis vascular consulted for HD access --Hypertension Resume routine home medications and monitor vital signs closely. -- Type 2 diabetes mellitus with diabetic chronic kidney disease monitor Accu-Cheks with SSI. -- DVT prophylaxis Patient placed on sequential compression device.. -- Full code status 05/16: plan to start HD, waiting on vascular access by vascular 05/17: waiting on vascular access by vascular 05/18: Plan for PermCath placement tomorrow, continue to monitor clinically 05/19: s/p permcath placement today and placed on HD Subjective Date of service: 05/19/20 Principal diagnosis: Chronic kidney disease stage V, anemia, hypertension Interval history: Patient seen and examined. Medical records and medication list reviewed. No acute event overnight noted by the RN. Patient denies any chest pain or difficulty breathing. Patient is tolerating diet. Discussed plan of care at bedside with patient. Objective - Exam Narrative Exam: GENERAL: well-developed and well-nourished male lying on bed appeared to be in no discomfort. HEENT: Normocephalic. Atraumatic. No conjunctival congestion or icterus. Patient has moist mucous membranes. NECK: Supple. Trachea midline. CHEST/LUNGS: Clear to auscultated bilaterally, breathing nonlabored. No wheezes crackles or rhonchi. HEART/CARDIOVASCULAR: Regular in rate and rhythm. S1 and S2 positive. ABDOMEN: Abdomen is soft, nontender. Patient has normal bowel sounds. SKIN: There is no rash. Warm and dry. NEURO: No focal motor deficit. Follows command. MUSCULOSKELETAL: No joint effusion or tenderness. EXTRIMITY: No edema, no cyanosis or clubbing. PSYCH: Cooperative. - Constitutional Vitals: Vital Signs - 12hr 05/19/20 05/19/20 04:14 08:38 Temperature 98.1 F 98.7 F Pulse Rate 80 82 Respiratory 18 18 Rate Blood Pressure 144/78 153/81 O2 Sat by Pulse 99 99 Oximetry - Labs CBC & Chem 7: 05/15/20 19:16 05/20/20 15:47 Labs: Abnormal lab results 05/18/20 05/18/20 Range/Units 16:12 20:51 POC Glucose 118 H 213 H (70-105) mg/dL
[2020-05-20] MEDS: FUROSEMIDE 40 MG TAB PO SCH ×2 (05:16→18:17)
[2020-05-20] MEDS: INSULIN LISPRO 100 UNIT/ML VIAL 3 mL SUB-Q SCH ×4 (07:50→22:25)
--- NOTE | 2020-05-20 11:32 | Progress Note ---
Assessment and Plan - Patient Problems (1) CKD (chronic kidney disease), stage V Current Visit: Yes Status: Chronic Plan to address problem: Chronic kidney disease stage V progressed to end-stage renal disease. Tolerated dialysis yesterday and is getting another treatment today. We will need to arrange for outpatient dialysis. fast food assistant restaurant manager to arrange for outpatient dialysis (2) Hypertensive chronic kidney disease with stage 5 chronic kidney disease or end stage renal disease Current Visit: Yes Status: Chronic Plan to address problem: Follow-up blood pressure on current medications (3) Anemia in chronic illness Current Visit: No Status: Chronic Plan to address problem: Continue erythropoietin with dialysis and follow-up hemoglobin (4) Type 2 diabetes mellitus with diabetic chronic kidney disease Current Visit: No Status: Chronic Qualifiers: Chronic kidney disease stage: stage 5, not on chronic dialysis Plan to address problem: Blood sugar management per primary attending Subjective Date of service: 05/20/20 Principal diagnosis: Chronic kidney disease stage V, anemia, hypertension Interval history: Patient seen lying in bed on dialysis. Tolerated treatment yesterday. He has no complaints this morning. No chest pain or shortness Objective - Exam Narrative Exam: Middle-aged male lying in bed in no acute distress HEENT: NCAT, pink oral mucous membrane Neck: Supple, no venous distention CVS: S1S2 RRR with no murmur, rub or gallop Chest: Clear to auscultation Abdomen: Protuberant, soft, nontender, no organomegaly, bowel sounds are present Extremities: No edema Genitourinary deferred Skin warm and dry Neuro: Awake, alert no focal deficits - Vital Signs Vital signs: Vital Signs - 12hr 05/20/20 05/20/20 04:07 08:10 Temperature 99.8 F H 98.4 F Pulse Rate 88 87 Respiratory 18 20 Rate Blood Pressure 140/78 132/82 O2 Sat by Pulse 96 98 Oximetry - Lab 05/15/20 19:16 05/17/20 13:55 Most recent lab results Calcium 8.7 mg/dL (8.4-10.2) 05/17/20 13:55 Medications & Allergies - Medications Allergies/Adverse Reactions: Allergies Penicillins Allergy (Verified 12/26/14 02:05) Dizziness Home Medications: Home Medications Medication Instructions Recorded Confirmed Last Taken Type Amlodipine Besylate [Norvasc] 10 mg PO DAILY 05/15/20 05/15/20 Unknown History Ferrous Sulfate [Iron 325 MG] 325 mg PO DAILY 05/15/20 05/15/20 Unknown History Furosemide [Lasix TAB] 80 mg PO BID 05/15/20 05/15/20 Unknown History Sodium Bicarbonate 1 tab PO BID 05/15/20 05/15/20 Unknown History calcitrioL [Rocaltrol] 1 mcg PO QDAY 05/15/20 05/15/20 Unknown History glipiZIDE [Glucotrol] 5 mg PO QDAY 05/15/20 05/15/20 Unknown History Active Medications: Generic Name Dose Route Start Last Admin Trade Name Freq PRN Reason Stop Dose Admin Acetaminophen 650 mg 05/15/20 23:26 Tylenol PO Q4H PRN Pain MILD(1-3)/Fever >100.5/GRAY Amlodipine Besylate 10 mg 05/17/20 10:00 05/19/20 13:55 Amlodipine PO Not Given DAILY JOSÉ ANTONIO Calcitriol 1 mcg 05/16/20 10:00 05/19/20 10:05 Rocaltrol PO Not Given QDAY JOSÉ ANTONIO Carvedilol 3.125 mg 05/18/20 22:00 05/19/20 21:14 Coreg PO 3.125 mg BID JOSÉ ANTONIO Administration Dextrose 0 ml 05/15/20 23:26 D50w (25gm) Syringe IV Q30MIN PRN Hypoglycemia Protocol Ferrous Sulfate 325 mg 05/16/20 10:00 05/19/20 10:05 Feosol PO Not Given DAILY JOSÉ ANTONIO Furosemide 80 mg 05/16/20 08:00 05/20/20 05:16 Lasix PO 80 mg 0600,1800 JOSÉ ANTONIO Administration Glipizide 5 mg 05/16/20 08:00 05/19/20 13:55 Glucotrol PO Not Given QAMDIAB JOSÉ ANTONIO Sodium Chloride 500 mls @ 50 mls/hr 05/19/20 10:00 Nacl 0.9% 500 Ml IV DIRECT JOSÉ ANTONIO Sodium Chloride 100 mls @ 999 mls/hr 05/19/20 10:56 Nacl 0.9% IV MAX PRN Hypotension Insulin Human Lispro 0 unit 05/16/20 07:30 05/19/20 21:14 Humalog SUB-Q 4 unit ACHS JOSÉ ANTONIO Administration Protocol Magnesium Hydroxide 30 ml 05/15/20 23:26 Milk Of Magnesia PO Q4H PRN Constipation Ondansetron HCl 4 mg 05/15/20 23:26 Zofran IV Q8H PRN Nausea And Vomiting Sodium Bicarbonate 650 mg 05/16/20 10:00 05/19/20 21:15 Sodium Bicarbonate PO 650 mg BID JOSÉ ANTONIO Administration Sodium Chloride 10 ml 05/16/20 10:00 05/19/20 21:14 Sodium Chloride Flush Syringe 10 Ml IV 10 ml BID JOSÉ ANTONIO Administration Sodium Chloride 10 ml 05/15/20 23:26 Sodium Chloride Flush Syringe 10 Ml IV PRN PRN LINE FLUSH
[2020-05-20] MEDS: amLODIPine 10 MG TAB PO SCH (14:34)
[2020-05-20] MEDS: FERROUS SULFATE 325 MG TAB PO SCH (14:34)
[2020-05-20] MEDS: glipiZIDE 5 MG TAB PO SCH (14:34)
[2020-05-20] MEDS: SODIUM BICARBONATE 650 MG TAB PO SCH ×2 (14:34→22:24)
[2020-05-20] MEDS: carvediloL 3.125 MG TAB PO SCH ×2 (14:34→22:24)
[2020-05-20] MEDS: CALCITRIOL 0.25 MCG CAP PO SCH (14:34)
--- NOTE | 2020-05-20 15:14 | Vascular Lab Report ---
DOPPLER ULTRASOUND UPPER EXTREMITY VENOUS MAPPING, BILATERAL INDICATION / CLINICAL INFORMATION: vein mapping, ESRD TECHNIQUE: Grayscale, color and spectral Doppler imaging of the venous system of the right and left upper extrem ities was performed. COMPARISON: None available FINDINGS: RIGHT UPPER EXTREMITY: Radial Artery (Diameter, in cm): 0.22 cm. Radial artery velocity measures 75.9 cm/s. Brachial artery velocity measures 97.6 cm/s. Basilic Vein (Diameter, in cm): - Upper Arm: 0.14 - Mid Arm: 0.13 - Lower Arm: 0.09 - Antecubital: 0.11 - Upper Forearm: 0.08 - Mid Forearm: 0.05 - Distal Forearm: 0.06 Cephalic Vein (Diameter, in cm): - Upper Arm: 0.27 - Mid Arm: 0.17 - Lower Arm: 0.17 - Antecubital: 0.25 - Upper Forearm: 0.16 - Mid Forearm: 0.16 - Distal Forearm: 0.10 LEFT UPPER EXTREMITY: Radial artery velocity measures 81.7 cm/s. Radial Artery (Diameter, in cm): 0.19 cm Brachial artery velocity measures 88.9 cm/s. Basilic Vein (Diameter, in cm): - Upper Arm: 0.29 - Mid Arm: 0.22 - Lower Arm: 0.24 - Antecubital: 0.24 - Upper Forearm: 0.16 - Mid Forearm: 0.06 - Distal Forearm: 0.05 Cephalic Vein (Diameter, in cm): - Upper Arm: 0.3 - Mid Arm: 0.22 - Lower Arm: 0.23 - Antecubital: 0.39 - Upper Forearm: 0.18 - Mid Forearm: 0.12 - Distal Forearm: 0.1 Additional Findings: None. IMPRESSION: 1. Upper extremity venous mapping as above. Signer Name: Sukhdeep Waddell MD Signed: 05/20/2020 3:10 PM Workstation Name: [id number]
[2020-05-20 16:26] LABS: Calcium 8.7 mg/dL (8.4-10.2)
--- NOTE | 2020-05-20 18:05 | Progress Note ---
Assessment and Plan -- ESRD (end stage renal disease) Patient being followed by supervisor shed workers. vascular consulted for HD access, started on HD need outpt HD set up --Hypertension Resume routine home medications and monitor vital signs closely. -- Type 2 diabetes mellitus with diabetic chronic kidney disease monitor Accu-Cheks with SSI. -- DVT prophylaxis Patient placed on sequential compression device.. -- Full code status 05/16: plan to start HD, waiting on vascular access by vascular 05/17: waiting on vascular access by vascular 05/18: Plan for PermCath placement tomorrow, continue to monitor clinically 05/19: s/p permcath placement today and placed on HD 05/20: need outpt HD set up, CM notified Subjective Date of service: 05/20/20 Principal diagnosis: Chronic kidney disease stage V, anemia, hypertension Interval history: Patient seen and examined. Medical records and medication list reviewed. No acute event overnight noted by the RN. Patient denies any chest pain or difficulty breathing. Patient is tolerating diet. Discussed plan of care at bedside with patient. Objective - Exam Narrative Exam: GENERAL: well-developed and well-nourished male lying on bed appeared to be in no discomfort. HEENT: Normocephalic. Atraumatic. No conjunctival congestion or icterus. Patient has moist mucous membranes. NECK: Supple. Trachea midline. CHEST/LUNGS: Clear to auscultated bilaterally, breathing nonlabored. No wheezes crackles or rhonchi. HEART/CARDIOVASCULAR: Regular in rate and rhythm. S1 and S2 positive. ABDOMEN: Abdomen is soft, nontender. Patient has normal bowel sounds. SKIN: There is no rash. Warm and dry. NEURO: No focal motor deficit. Follows command. MUSCULOSKELETAL: No joint effusion or tenderness. EXTRIMITY: No edema, no cyanosis or clubbing. PSYCH: Cooperative. - Constitutional Vitals: Vital Signs - 12hr 05/20/20 05/20/20 08:10 15:33 Temperature 98.4 F 98.4 F Pulse Rate 87 84 Respiratory 20 20 Rate Blood Pressure 132/82 141/80 O2 Sat by Pulse 98 99 Oximetry - Labs CBC & Chem 7: 05/15/20 19:16 05/20/20 15:47 Labs: Abnormal lab results 05/19/20 05/20/20 05/20/20 Range/Units 21:00 15:47 16:24 Sodium 134 L (137-145) mmol/L Chloride 94.7 L (98-107) mmol/L BUN 22 H (9-20) mg/dL Creatinine 3.9 H D (0.8-1.3) mg/dL Glucose 266 H (75-100) mg/dL POC Glucose 286 H 293 H (70-105) mg/dL
[2020-05-21] MEDS: INSULIN LISPRO 100 UNIT/ML VIAL 3 mL SUB-Q SCH ×4 (08:13→22:20)
[2020-05-21] MEDS: SODIUM BICARBONATE 650 MG TAB PO SCH ×2 (09:52→22:19)
[2020-05-21] MEDS: carvediloL 3.125 MG TAB PO SCH ×2 (09:52→22:19)
[2020-05-21] MEDS: FERROUS SULFATE 325 MG TAB PO SCH (09:52)
[2020-05-21] MEDS: glipiZIDE 5 MG TAB PO SCH (09:52)
[2020-05-21] MEDS: amLODIPine 10 MG TAB PO SCH (09:52)
[2020-05-21] MEDS: CALCITRIOL 0.25 MCG CAP PO SCH (09:53)
--- NOTE | 2020-05-21 10:47 | Progress Note ---
Assessment and Plan - Patient Problems (1) CKD (chronic kidney disease), stage V Current Visit: Yes Status: Inactive Plan to address problem: Chronic kidney disease stage V progressed to end-stage renal disease. Tolerated dialysis yesterday and is getting another treatment today. We will need to arrange for outpatient dialysis. geothermal plant manager to arrange for outpatient dialysis. I discussed with the clinical training specialist and they are awaiting financial c learance. Patient has no insurance (2) Hypertensive chronic kidney disease with stage 5 chronic kidney disease or end stage renal disease Current Visit: Yes Status: Chronic Plan to address problem: Follow-up blood pressure on current medications (3) Anemia in chronic illness Current Visit: No Status: Chronic Plan to address problem: Continue erythropoietin with dialysis and follow-up hemoglobin (4) Type 2 diabetes mellitus with diabetic chronic kidney disease Current Visit: No Status: Chronic Qualifiers: Chronic kidney disease stage: stage 5, not on chronic dialysis Plan to address problem: Blood sugar management per primary attending Subjective Date of service: 05/21/20 Principal diagnosis: Chronic kidney disease stage V, anemia, hypertension Interval history: Patient seen lying in bed on dialysis. Tolerated treatment yesterday. He has no complaints this morning. No chest pain or shortness Objective - Exam Narrative Exam: Middle-aged male lying in bed in no acute distress HEENT: NCAT, pink oral mucous membrane Neck: Supple, no venous distention CVS: S1S2 RRR with no murmur, rub or gallop Chest: Clear to auscultation Abdomen: Protuberant, soft, nontender, no organomegaly, bowel sounds are present Extremities: No edema Genitourinary deferred Skin warm and dry Neuro: Awake, alert no focal deficits - Vital Signs Vital signs: Vital Signs - 12hr 05/21/20 05/21/20 05/21/20 00:03 05:25 07:36 Temperature 99.4 F 98.0 F 98.3 F Pulse Rate 78 81 81 Respiratory 16 20 20 Rate Blood Pressure 139/66 140/77 136/87 O2 Sat by Pulse 98 96 99 Oximetry - Lab 05/15/20 19:16 05/20/20 15:47 Most recent lab results Calcium 8.7 mg/dL (8.4-10.2) 05/20/20 15:47 Medications & Allergies - Medications Allergies/Adverse Reactions: Allergies Penicillins Allergy (Verified 12/26/14 02:05) Dizziness Home Medications: Home Medications Medication Instructions Recorded Confirmed Last Taken Type Amlodipine Besylate [Norvasc] 10 mg PO DAILY 05/15/20 05/15/20 Unknown History Ferrous Sulfate [Iron 325 MG] 325 mg PO DAILY 05/15/20 05/15/20 Unknown History Furosemide [Lasix TAB] 80 mg PO BID 05/15/20 05/15/20 Unknown History Sodium Bicarbonate 1 tab PO BID 05/15/20 05/15/20 Unknown History calcitrioL [Rocaltrol] 1 mcg PO QDAY 05/15/20 05/15/20 Unknown History glipiZIDE [Glucotrol] 5 mg PO QDAY 05/15/20 05/15/20 Unknown History Active Medications: Generic Name Dose Route Start Last Admin Trade Name Freq PRN Reason Stop Dose Admin Acetaminophen 650 mg 05/15/20 23:26 Tylenol PO Q4H PRN Pain MILD(1-3)/Fever >100.5/GRAY Amlodipine Besylate 10 mg 05/17/20 10:00 05/21/20 09:52 Amlodipine PO 10 mg DAILY JOSÉ ANTONIO Administration Calcitriol 1 mcg 05/16/20 10:00 05/21/20 09:53 Rocaltrol PO 1 mcg QDAY JOSÉ ANTONIO Administration Carvedilol 3.125 mg 05/18/20 22:00 05/21/20 09:52 Coreg PO 3.125 mg BID JOSÉ ANTONIO Administration Dextrose 0 ml 05/15/20 23:26 D50w (25gm) Syringe IV Q30MIN PRN Hypoglycemia Protocol Ferrous Sulfate 325 mg 05/16/20 10:00 05/21/20 09:52 Feosol PO 325 mg DAILY JOSÉ ANTONIO Administration Furosemide 80 mg 05/16/20 08:00 05/20/20 18:17 Lasix PO 80 mg 0600,1800 JOSÉ ANTONIO Administration Glipizide 5 mg 05/16/20 08:00 05/21/20 09:52 Glucotrol PO 5 mg QAMDIAB JOSÉ ANTONIO Administration Sodium Chloride 500 mls @ 50 mls/hr 05/19/20 10:00 Nacl 0.9% 500 Ml IV DIRECT JOSÉ ANTONIO Sodium Chloride 100 mls @ 999 mls/hr 05/19/20 10:56 Nacl 0.9% IV MAX PRN Hypotension Insulin Human Lispro 0 unit 05/16/20 07:30 05/20/20 22:25 Humalog SUB-Q 4 unit ACHS JOSÉ ANTONIO Administration Protocol Magnesium Hydroxide 30 ml 05/15/20 23:26 Milk Of Magnesia PO Q4H PRN Constipation Ondansetron HCl 4 mg 05/15/20 23:26 05/20/20 12:00 Zofran IV 4 mg Q8H PRN Administration Nausea And Vomiting Sodium Bicarbonate 650 mg 05/16/20 10:00 05/21/20 09:52 Sodium Bicarbonate PO 650 mg BID JOSÉ ANTONIO Administration Sodium Chloride 10 ml 05/16/20 10:00 05/21/20 09:52 Sodium Chloride Flush Syringe 10 Ml IV 10 ml BID JOSÉ ANTONIO Administration Sodium Chloride 10 ml 05/15/20 23:26 Sodium Chloride Flush Syringe 10 Ml IV PRN PRN LINE FLUSH
--- NOTE | 2020-05-21 15:49 | Progress Note ---
Assessment and Plan -- ESRD (end stage renal disease) Patient being followed by glass toughening operator. vascular consulted for HD access, started on HD need outpt HD set up --Hypertension Resume routine home medications and monitor vital signs closely. -- Type 2 diabetes mellitus with diabetic chronic kidney disease monitor Accu-Cheks with SSI. -- DVT prophylaxis Patient placed on sequential compression device.. -- Full code status 05/16: plan to start HD, waiting on vascular access by vascular 05/17: waiting on vascular access by vascular 05/18: Plan for PermCath placement tomorrow, continue to monitor clinically 05/19: s/p permcath placement today and placed on HD 05/20: need outpt HD set up, CM notified 05/21: Pending outpatient dialysis set up. Continue supportive care and dialysis as needed per renal Subjective Date of service: 05/21/20 Principal diagnosis: Chronic kidney disease stage V, anemia, hypertension Interval history: Patient seen and examined. Medical records and medication list reviewed. No acute event overnight noted by the RN. Patient denies any chest pain or difficulty breathing. Patient is tolerating diet. Discussed plan of care at bedside with patient. Objective - Exam Narrative Exam: GENERAL: well-developed and well-nourished male lying on bed appeared to be in no discomfort. HEENT: Normocephalic. Atraumatic. No conjunctival congestion or icterus. Patient has moist mucous membranes. NECK: Supple. Trachea midline. CHEST/LUNGS: Clear to auscultated bilaterally, breathing nonlabored. No wheezes crackles or rhonchi. HEART/CARDIOVASCULAR: Regular in rate and rhythm. S1 and S2 positive. ABDOMEN: Abdomen is soft, nontender. Patient has normal bowel sounds. SKIN: There is no rash. Warm and dry. NEURO: No focal motor deficit. Follows command. MUSCULOSKELETAL: No joint effusion or tenderness. EXTRIMITY: No edema, no cyanosis or clubbing. PSYCH: Cooperative. - Constitutional Vitals: Vital Signs - 12hr 05/21/20 05/21/20 05:25 07:36 Temperature 98.0 F 98.3 F Pulse Rate 81 81 Respiratory 20 20 Rate Blood Pressure 140/77 136/87 O2 Sat by Pulse 96 99 Oximetry - Labs CBC & Chem 7: 05/15/20 19:16 05/20/20 15:47 Labs: Abnormal lab results 05/20/20 05/20/20 05/20/20 Range/Units 15:47 16:24 21:49 Sodium 134 L (137-145) mmol/L Chloride 94.7 L (98-107) mmol/L BUN 22 H (9-20) mg/dL Creatinine 3.9 H D (0.8-1.3) mg/dL Glucose 266 H (75-100) mg/dL POC Glucose 293 H 193 H (70-105) mg/dL 05/21/20 05/21/20 05/21/20 Range/Units 00:22 03:09 08:44 Sodium (137-145) mmol/L Chloride (98-107) mmol/L BUN (9-20) mg/dL Creatinine (0.8-1.3) mg/dL Glucose (75-100) mg/dL POC Glucose 57 L 230 H 116 H (70-105) mg/dL 05/21/20 Range/Units 12:15 Sodium (137-145) mmol/L Chloride (98-107) mmol/L BUN (9-20) mg/dL Creatinine (0.8-1.3) mg/dL Glucose (75-100) mg/dL POC Glucose 186 H (70-105) mg/dL
[2020-05-21] MEDS: FUROSEMIDE 40 MG TAB PO SCH ×2 (18:05→21:38)
[2020-05-22] MEDS: FUROSEMIDE 40 MG TAB PO SCH ×2 (06:46→17:14)
[2020-05-22] MEDS: INSULIN LISPRO 100 UNIT/ML VIAL 3 mL SUB-Q SCH ×4 (08:58→22:20)
[2020-05-22] MEDS: SODIUM BICARBONATE 650 MG TAB PO SCH ×2 (09:10→22:19)
[2020-05-22] MEDS: carvediloL 3.125 MG TAB PO SCH ×2 (09:16→22:19)
[2020-05-22] MEDS: FERROUS SULFATE 325 MG TAB PO SCH (09:17)
[2020-05-22] MEDS: glipiZIDE 5 MG TAB PO SCH (09:17)
[2020-05-22] MEDS: amLODIPine 10 MG TAB PO SCH (09:17)
[2020-05-22] MEDS: CALCITRIOL 0.25 MCG CAP PO SCH (09:17)
--- NOTE | 2020-05-22 14:44 | Progress Note ---
Assessment and Plan -- ESRD (end stage renal disease) Patient being followed by band tumbler. vascular consulted for HD access, started on HD need outpt HD set up --Hypertension Resume routine home medications and monitor vital signs closely. -- Type 2 diabetes mellitus with diabetic chronic kidney disease monitor Accu-Cheks with SSI. -- DVT prophylaxis Patient placed on sequential compression device.. -- Full code status 05/16: plan to start HD, waiting on vascular access by vascular 05/17: waiting on vascular access by vascular 05/18: Plan for PermCath placement tomorrow, continue to monitor clinically 05/19: s/p permcath placement today and placed on HD 05/20: need outpt HD set up, CM notified 05/21: Pending outpatient dialysis set up. Continue supportive care and dialysis as needed per renal 05/22: pending outpt HD set up Subjective Date of service: 05/22/20 Principal diagnosis: Chronic kidney disease stage V, anemia, hypertension Interval history: Patient seen and examined. Medical records and medication list reviewed. No acute event overnight noted by the RN. Patient denies any chest pain or difficulty breathing. Patient is tolerating diet. Discussed plan of care at bedside with patient. Objective - Exam Narrative Exam: GENERAL: well-developed and well-nourished male lying on bed appeared to be in no discomfort. HEENT: Normocephalic. Atraumatic. No conjunctival congestion or icterus. Patient has moist mucous membranes. NECK: Supple. Trachea midline. CHEST/LUNGS: Clear to auscultated bilaterally, breathing nonlabored. No wheezes crackles or rhonchi. HEART/CARDIOVASCULAR: Regular in rate and rhythm. S1 and S2 positive. ABDOMEN: Abdomen is soft, nontender. Patient has normal bowel sounds. SKIN: There is no rash. Warm and dry. NEURO: No focal motor deficit. Follows command. MUSCULOSKELETAL: No joint effusion or tenderness. EXTRIMITY: No edema, no cyanosis or clubbing. PSYCH: Cooperative. - Constitutional Vitals: Vital Signs - 12hr 05/22/20 05/22/20 05/22/20 04:18 09:14 09:16 Temperature 98.3 F 98.4 F Pulse Rate 88 78 77 Respiratory 20 18 Rate Blood Pressure 140/83 133/72 133/72 O2 Sat by Pulse 98 100 Oximetry 05/22/20 05/22/20 09:17 12:30 Temperature 98.3 F Pulse Rate 77 82 Respiratory 20 Rate Blood Pressure 133/72 126/82 O2 Sat by Pulse 97 Oximetry - Labs CBC & Chem 7: 05/15/20 19:16 05/20/20 15:47 Labs: Abnormal lab results 05/21/20 05/21/20 05/22/20 Range/Units 16:59 21:20 11:47 POC Glucose 163 H 227 H 131 H (70-105) mg/dL
[2020-05-23] MEDS: FUROSEMIDE 40 MG TAB PO SCH ×2 (06:02→19:02)
[2020-05-23] MEDS: INSULIN LISPRO 100 UNIT/ML VIAL 3 mL SUB-Q SCH ×3 (08:45→17:55)
[2020-05-23] MEDS: FERROUS SULFATE 325 MG TAB PO SCH (09:39)
[2020-05-23] MEDS: carvediloL 3.125 MG TAB PO SCH ×2 (09:40→22:21)
[2020-05-23] MEDS: CALCITRIOL 0.25 MCG CAP PO SCH (09:42)
[2020-05-23] MEDS: amLODIPine 10 MG TAB PO SCH (09:42)
[2020-05-23] MEDS: SODIUM BICARBONATE 650 MG TAB PO SCH ×2 (09:42→22:20)
[2020-05-23] MEDS: glipiZIDE 5 MG TAB PO SCH (09:42)
--- NOTE | 2020-05-23 10:56 | Progress Note ---
Assessment and Plan - Patient Problems (1) CKD (chronic kidney disease), stage V Current Visit: Yes Status: Inactive Plan to address problem: Chronic kidney disease stage V progressed to end-stage renal disease. He will be getting another treatment today. credit manager to arrange for outpatient dialysis. I discussed with the clinical evaluator and they are awaiting financial clearance. Patient has no insurance. I am awaiting follow-up from the clinic today. Hopefully he is cleared and can be discharged today (2) Hypertensive chronic kidney disease with stage 5 chronic kidney disease or end stage renal disease Current Visit: Yes Status: Chronic Plan to address problem: Follow-up blood pressure on current medications (3) Anemia in chronic illness Current Visit: No Status: Chronic Plan to address problem: Continue erythropoietin with dialysis and follow-up hemoglobin (4) Type 2 diabetes mellitus with diabetic chronic kidney disease Current Visit: No Status: Chronic Qualifiers: Chronic kidney disease stage: stage 5, not on chronic dialysis Plan to address problem: Blood sugar management per primary attending Subjective Date of service: 05/23/20 Principal diagnosis: Chronic kidney disease stage V, anemia, hypertension Interval history: Patient seen lying in bed. He has no complaints this morning. No chest pain or shortness. Eager to go home Objective - Exam Narrative Exam: Middle-aged male lying in bed in no acute distress HEENT: NCAT, pink oral mucous membrane Neck: Supple, no venous distention CVS: S1S2 RRR with no murmur, rub or gallop Chest: Clear to auscultation Abdomen: Protuberant, soft, nontender, no organomegaly, bowel sounds are present Extremities: No edema Genitourinary deferred Skin warm and dry Neuro: Awake, alert no focal deficits - Vital Signs Vital signs: Vital Signs - 12hr 05/22/20 05/23/20 05/23/20 23:24 04:07 07:35 Temperature 98.4 F 98.8 F 98.2 F Pulse Rate 85 82 79 Respiratory 16 16 16 Rate Blood Pressure 147/87 136/79 142/84 O2 Sat by Pulse 99 97 97 Oximetry 05/23/20 05/23/20 09:40 09:42 Temperature Pulse Rate 79 79 Respiratory Rate Blood Pressure 142/84 142/84 O2 Sat by Pulse Oximetry - Lab 05/15/20 19:16 05/20/20 15:47 Most recent lab results Calcium 8.7 mg/dL (8.4-10.2) 05/20/20 15:47 Medications & Allergies - Medications Allergies/Adverse Reactions: Allergies Penicillins Allergy (Verified 12/26/14 02:05) Dizziness Home Medications: Home Medications Medication Instructions Recorded Confirmed Last Taken Type Amlodipine Besylate [Norvasc] 10 mg PO DAILY 05/15/20 05/15/20 Unknown History Ferrous Sulfate [Iron 325 MG] 325 mg PO DAILY 05/15/20 05/15/20 Unknown History Furosemide [Lasix TAB] 80 mg PO BID 05/15/20 05/15/20 Unknown History Sodium Bicarbonate 1 tab PO BID 05/15/20 05/15/20 Unknown History calcitrioL [Rocaltrol] 1 mcg PO QDAY 05/15/20 05/15/20 Unknown History glipiZIDE [Glucotrol] 5 mg PO QDAY 05/15/20 05/15/20 Unknown History Active Medications: Generic Name Dose Route Start Last Admin Trade Name Freq PRN Reason Stop Dose Admin Acetaminophen 650 mg 05/15/20 23:26 Tylenol PO Q4H PRN Pain MILD(1-3)/Fever >100.5/GRAY Amlodipine Besylate 10 mg 05/17/20 10:00 05/23/20 09:42 Amlodipine PO 10 mg DAILY JOSÉ ANTONIO Administration Calcitriol 1 mcg 05/16/20 10:00 05/23/20 09:42 Rocaltrol PO 1 mcg QDAY JOSÉ ANTONIO Administration Carvedilol 3.125 mg 05/18/20 22:00 05/23/20 09:40 Coreg PO 3.125 mg BID JOSÉ ANTONIO Administration Dextrose 0 ml 05/15/20 23:26 D50w (25gm) Syringe IV Q30MIN PRN Hypoglycemia Protocol Ferrous Sulfate 325 mg 05/16/20 10:00 05/23/20 09:39 Feosol PO 325 mg DAILY JOSÉ ANTONIO Administration Furosemide 80 mg 05/16/20 08:00 05/23/20 06:02 Lasix PO 80 mg 0600,1800 JOSÉ ANTONIO Administration Glipizide 5 mg 05/16/20 08:00 05/23/20 09:42 Glucotrol PO 5 mg QAMDIAB JOSÉ ANTONIO Administration Sodium Chloride 500 mls @ 50 mls/hr 05/19/20 10:00 Nacl 0.9% 500 Ml IV DIRECT JOSÉ ANTONIO Sodium Chloride 100 mls @ 999 mls/hr 05/19/20 10:56 Nacl 0.9% IV AMX PRN Hypotension Insulin Human Lispro 0 unit 05/16/20 07:30 05/23/20 08:45 Humalog SUB-Q Not Given ACHS [facility] Protocol Magnesium Hydroxide 30 ml 05/15/20 23:26 Milk Of Magnesia PO Q4H PRN Constipation Ondansetron HCl 4 mg 05/15/20 23:26 05/20/20 12:00 Zofran IV 4 mg Q8H PRN Administration Nausea And Vomiting Sodium Bicarbonate 650 mg 05/16/20 10:00 05/23/20 09:42 Sodium Bicarbonate PO 650 mg BID JOSÉ ANTONIO Administration Sodium Chloride 10 ml 05/16/20 10:00 05/23/20 09:43 Sodium Chloride Flush Syringe 10 Ml IV 10 ml BID JOSÉ ANTONIO Administration Sodium Chloride 10 ml 05/15/20 23:26 Sodium Chloride Flush Syringe 10 Ml IV PRN PRN LINE FLUSH
--- NOTE | 2020-05-23 15:45 | Progress Note ---
Assessment and Plan -- ESRD (end stage renal disease) Patient being followed by sales store checker. vascular consulted for HD access, started on HD need outpt HD set up --Hypertension Resume routine home medications and monitor vital signs closely. -- Type 2 diabetes mellitus with diabetic chronic kidney disease monitor Accu-Cheks with SSI. -- DVT prophylaxis Patient placed on sequential compression device.. -- Full code status 05/16: plan to start HD, waiting on vascular access by vascular 05/17: waiting on vascular access by vascular 05/18: Plan for PermCath placement tomorrow, continue to monitor clinically 05/19: s/p permcath placement today and placed on HD 05/20: need outpt HD set up, CM notified 05/21: Pending outpatient dialysis set up. Continue supportive care and dialysis as needed per renal 05/22: pending outpt HD set up 05/23: d/c pending on outpt Hd setup Subjective Date of service: 05/23/20 Principal diagnosis: Chronic kidney disease stage V, anemia, hypertension Interval history: Patient seen and examined. Medical records and medication list reviewed. No acute event overnight noted by the RN. Patient denies any chest pain or difficulty breathing. Patient is tolerating diet. Discussed plan of care at bedside with patient. Objective - Exam Narrative Exam: GENERAL: well-developed and well-nourished male lying on bed appeared to be in no discomfort. HEENT: Normocephalic. Atraumatic. No conjunctival congestion or icterus. Patient has moist mucous membranes. NECK: Supple. Trachea midline. CHEST/LUNGS: Clear to auscultated bilaterally, breathing nonlabored. No wheezes crackles or rhonchi. HEART/CARDIOVASCULAR: Regular in rate and rhythm. S1 and S2 positive. ABDOMEN: Abdomen is soft, nontender. Patient has normal bowel sounds. SKIN: There is no rash. Warm and dry. NEURO: No focal motor deficit. Follows command. MUSCULOSKELETAL: No joint effusion or tenderness. EXTRIMITY: No edema, no cyanosis or clubbing. PSYCH: Cooperative. - Constitutional Vitals: Vital Signs - 12hr 05/23/20 05/23/20 05/23/20 04:07 07:35 09:40 Temperature 98.8 F 98.2 F Pulse Rate 82 79 79 Respiratory 16 16 Rate Blood Pressure 136/79 142/84 142/84 O2 Sat by Pulse 97 97 Oximetry 05/23/20 09:42 Temperature Pulse Rate 79 Respiratory Rate Blood Pressure 142/84 O2 Sat by Pulse Oximetry - Labs CBC & Chem 7: 05/15/20 19:16 05/20/20 15:47 Labs: Abnormal lab results 05/22/20 05/22/20 05/23/20 Range/Units 16:38 20:48 11:53 POC Glucose 194 H 150 H 179 H (70-105) mg/dL
[2020-05-24] MEDS: FUROSEMIDE 40 MG TAB PO SCH (06:59)
[2020-05-24] MEDS: INSULIN LISPRO 100 UNIT/ML VIAL 3 mL SUB-Q SCH ×2 (08:24→12:00)
[2020-05-24] MEDS: carvediloL 3.125 MG TAB PO SCH (10:57)
[2020-05-24] MEDS: amLODIPine 10 MG TAB PO SCH (10:57)
[2020-05-24] MEDS: glipiZIDE 5 MG TAB PO SCH (10:57)
[2020-05-24] MEDS: FERROUS SULFATE 325 MG TAB PO SCH (10:57)
[2020-05-24] MEDS: CALCITRIOL 0.25 MCG CAP PO SCH (10:57)
[2020-05-24] MEDS: SODIUM BICARBONATE 650 MG TAB PO SCH (10:58)
--- NOTE | 2020-05-24 11:15 | Progress Note ---
Assessment and Plan - Patient Problems (1) CKD (chronic kidney disease), stage V Current Visit: Yes Status: Inactive Plan to address problem: With worsening renal function, and concerns for uremia, we patient was initiated on HD. Explained to him that we will need permcath placement for HD needs and then as an outpatient need to set up appointment with vascular surgery for AVF creation. We are currently pending outpatient dialysis placement at this time. This is being complicated by the fact that patient does not have a current green card to verify legal residence at this time but apparently it is in the process per . We will need to closely follow-up with case management this time. Per case management notes he apparently does have a work ID. (2) Volume overload Current Visit: Yes Status: Chronic Plan to address problem: Optimize volume status with HD. 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 (4) Anemia in chronic illness Current Visit: No Status: Chronic Plan to address problem: Continue VAL therapy with HD. (5) Type 2 diabetes mellitus with diabetic chronic kidney disease Current Visit: No Status: Chronic Qualifiers: Chronic kidney disease stage: stage 5, not on chronic dialysis Plan to address problem: DM management per primary attending. Subjective Date of service: 05/24/20 Principal diagnosis: Chronic kidney disease stage V, anemia, hypertension Interval history: No acute complaints this morning. Tolerated hemodialysis well yesterday. Objective - Vital Signs Vital signs: Vital Signs - 12hr 05/24/20 03:47 Temperature 98.1 F Pulse Rate 76 Respiratory 16 Rate Blood Pressure 143/87 O2 Sat by Pulse 98 Oximetry - General Appearance General appearance: well-developed, well-nourished, appears stated age EENT: ATNC Neck: no JVD Respiratory: Present: Clear to Ascultation Cardiology: regular Gastrointestinal: normal Integumentary: warm and dry Neurologic: no focal deficit Musculoskeletal: deferred Psychiatric: cooperative - Lab 05/15/20 19:16 05/20/20 15:47 Most recent lab results Calcium 8.7 mg/dL (8.4-10.2) 05/20/20 15:47 - Allied health notes Allied health notes reviewed: nursing Medications & Allergies - Medications Allergies/Adverse Reactions: Allergies Penicillins Allergy (Verified 12/26/14 02:05) Dizziness Home Medications: Home Medications Medication Instructions Recorded Confirmed Last Taken Type Amlodipine Besylate [Norvasc] 10 mg PO DAILY 05/15/20 05/15/20 Unknown History Ferrous Sulfate [Iron 325 MG] 325 mg PO DAILY 05/15/20 05/15/20 Unknown History Furosemide [Lasix TAB] 80 mg PO BID 05/15/20 05/15/20 Unknown History Sodium Bicarbonate 1 tab PO BID 05/15/20 05/15/20 Unknown History calcitrioL [Rocaltrol] 1 mcg PO QDAY 05/15/20 05/15/20 Unknown History glipiZIDE [Glucotrol] 5 mg PO QDAY 05/15/20 05/15/20 Unknown History Active Medications: Generic Name Dose Route Start Last Admin Trade Name Freq PRN Reason Stop Dose Admin Acetaminophen 650 mg 05/15/20 23:26 Tylenol PO Q4H PRN Pain MILD(1-3)/Fever >100.5/GRAY Amlodipine Besylate 10 mg 05/17/20 10:00 05/24/20 10:57 Amlodipine PO 10 mg DAILY JOSÉ ANTONIO Administration Calcitriol 1 mcg 05/16/20 10:00 05/24/20 10:57 Rocaltrol PO 1 mcg QDAY JOSÉ ANTONIO Administration Carvedilol 3.125 mg 05/18/20 22:00 05/24/20 10:57 Coreg PO 3.125 mg BID JOSÉ ANTONIO Administration Dextrose 0 ml 05/15/20 23:26 D50w (25gm) Syringe IV Q30MIN PRN Hypoglycemia Protocol Ferrous Sulfate 325 mg 05/16/20 10:00 05/24/20 10:57 Feosol PO 325 mg DAILY JOSÉ ANTONIO Administration Furosemide 80 mg 05/16/20 08:00 05/24/20 06:59 Lasix PO 80 mg 0600,1800 JOSÉ ANTONIO Administration Glipizide 5 mg 05/16/20 08:00 05/24/20 10:57 Glucotrol PO 5 mg QAMDIAB JOSÉ ANTONIO Administration Sodium Chloride 500 mls @ 50 mls/hr 05/19/20 10:00 Nacl 0.9% 500 Ml IV DIRECT JOSÉ ANTONIO Sodium Chloride 100 mls @ 999 mls/hr 05/19/20 10:56 Nacl 0.9% IV MAX PRN Hypotension Insulin Human Lispro 0 unit 05/16/20 07:30 05/24/20 08:24 Humalog SUB-Q Not Given ACHS [facility] Protocol Magnesium Hydroxide 30 ml 05/15/20 23:26 Milk Of Magnesia PO Q4H PRN Constipation Ondansetron HCl 4 mg 05/15/20 23:26 05/20/20 12:00 Zofran IV 4 mg Q8H PRN Administration Nausea And Vomiting Sodium Bicarbonate 650 mg 05/16/20 10:00 05/24/20 10:58 Sodium Bicarbonate PO 650 mg BID JOSÉ ANTONIO Administration Sodium Chloride 10 ml 05/16/20 10:00 05/24/20 10:58 Sodium Chloride Flush Syringe 10 Ml IV 10 ml BID JOSÉ ANTONIO Administration Sodium Chloride 10 ml 05/15/20 23:26 Sodium Chloride Flush Syringe 10 Ml IV PRN PRN LINE FLUSH
--- NOTE | 2020-05-24 12:19 | Progress Note ---
Assessment and Plan -- ESRD (end stage renal disease) Patient being followed by mechanical design engineer. vascular consulted for HD access, started on HD need outpt HD set up --Hypertension Resume routine home medications and monitor vital signs closely. -- Type 2 diabetes mellitus with diabetic chronic kidney disease monitor Accu-Cheks with SSI. -- DVT prophylaxis Patient placed on sequential compression device.. -- Full code status 05/16: plan to start HD, waiting on vascular access by vascular 05/17: waiting on vascular access by vascular 05/18: Plan for PermCath placement tomorrow, continue to monitor clinically 05/19: s/p permcath placement today and placed on HD 05/20: need outpt HD set up, CM notified 05/21: Pending outpatient dialysis set up. Continue supportive care and dialysis as needed per renal 05/22: pending outpt HD set up 05/23: d/c pending on outpt Hd setup 05/24: Pending outpatient dialysis set up, patient does not have a green card or citizenship which complicating the outpatient dialysis set up procedure. We will follow up with the case management. Subjective Date of service: 05/24/20 Principal diagnosis: Chronic kidney disease stage V, anemia, hypertension Objective - Constitutional Vitals: Vital Signs - 12hr 05/24/20 03:47 Temperature 98.1 F Pulse Rate 76 Respiratory 16 Rate Blood Pressure 143/87 O2 Sat by Pulse 98 Oximetry - Labs CBC & Chem 7: 05/15/20 19:16 05/20/20 15:47 Labs: Abnormal lab results 05/23/20 05/23/20 Range/Units 18:14 21:02 POC Glucose 147 H 223 H (70-105) mg/dL
--- NOTE | 2020-05-24 13:36 | Discharge Summary ---
Providers - Providers Date of Admission: 05/16/20 11:28 Date of discharge: 05/24/20 Attending physician: ESME JESUS 05/15/20 22:39 Consult to Physician [CONS] Routine Comment: Consulting Provider: WILD RONDON Physician Instructions: Reason For Exam: chronic renal disease requring dialysis 05/15/20 23:28 Consult to Dietitian/Nutrition [CONS] Routine Physician Instructions: Reason For Exam: Reason for Consult: Diet education 05/16/20 09:10 Consult to Interventional Radiology [CONS] Routine Consulting Provider: MARIA C TUCKER Reason For Exam: permcath placement for initiation of HD Place consult to:: [facility] [place] Notified:: Safia Johnston Phone number called:: Was contact made?: Yes If yes, spoke with:: Anne service Time called:: 08:51 05/17/20 10:34 Consult to Case Management [CONS] Routine Services Needed at Discharge: Other Notified:: case management Comment:: Arrange outpatient dialysis at [facility] 05/21/20 08:18 Consult to Case Management [CONS] Routine Services Needed at Discharge: Other Notified:: CASE MANAGEMENT Additional Physician Instructions: need outpt HD setup-[facility]. Primary care physician: WILD RONDON Hospitalization Condition: Fair Hospital course: Discharge diagnosis: -- ESRD (end stage renal disease) Patient being followed by principal software engineer. vascular consulted for HD access, started on HD need outpt HD set up --Hypertension Resume routine home medications and monitor vital signs closely. -- Type 2 diabetes mellitus with diabetic chronic kidney disease monitor Accu-Cheks with SSI. -- DVT prophylaxis Patient placed on sequential compression device.. -- Full code status 05/16: plan to start HD, waiting on vascular access by vascular 05/17: waiting on vascular access by vascular 05/18: Plan for PermCath placement tomorrow, continue to monitor clinically 05/19: s/p permcath placement today and placed on HD 05/20: need outpt HD set up, CM notified 05/21: Pending outpatient dialysis set up. Continue supportive care and dialysis as needed per renal 05/22: pending outpt HD set up 05/23: d/c pending on outpt Hd setup 05/24: Pending outpatient dialysis set up, patient does not have a green card or citizenship which complicating the outpatient dialysis set up procedure. Babita ent was told he may have to come to hospital ER for his HD need and he is agreeable to that. He will come back to ER for HD on Tuesday. Disposition: DC-30 STILL A PATIENT Time spent for discharge: 34 minutes Core Measure Documentation - Palliative Care Palliative Care/ Comfort Measures: Not Applicable - Core Measures Any of the following diagnoses?: none Exam - Physical Exam Narrative exam: GENERAL: well-developed and well-nourished male lying on bed appeared to be in no discomfort. HEENT: Normocephalic. Atraumatic. No conjunctival congestion or icterus. Pat ient has moist mucous membranes. NECK: Supple. Trachea midline. CHEST/LUNGS: Clear to auscultated bilaterally, breathing nonlabored. No wheezes crackles or rhonchi. HEART/CARDIOVASCULAR: Regular in rate and rhythm. S1 and S2 positive. ABDOMEN: Abdomen is soft, nontender. Patient has normal bowel sounds. SKIN: There is no rash. Warm and dry. NEURO: No focal motor deficit. Follows command. MUSCULOSKELETAL: No joint effusion or tenderness. EXTRIMITY: No edema, no cyanosis or clubbing. PSYCH: Cooperative. - Constitutional Vitals: Temp Pulse Resp BP Pulse Ox 98.1 F 76 16 143/87 98 05/24/20 03:47 05/24/20 03:47 05/24/20 03:47 05/24/20 03:47 05/24/20 03:47 Plan Activity: advance as tolerated Weight Bearing Status: Weight Bear as Tolerated Diet: diabetic, renal Special Instructions: restrict fluid intake to (1.2L per day) Follow up with: PRIMARY CARE, [Referring] - 3-5 Days MAIDA NEWBERRY DO [Staff Physician] - 7 Days Prescriptions: amLODIPine 10 mg PO DAILY #60 tablet carvediloL [Coreg] 3.125 mg PO BID #120 tablet glipiZIDE [Glucotrol] 5 mg PO QDAY #60 Ferrous Sulfate [Iron 325 MG] 325 mg PO DAILY #60 Furosemide [Lasix TAB] 80 mg PO BID #120 calcitrioL [Rocaltrol] 1 mcg PO QDAY #60 cap Sodium Bicarbonate 1 tab PO BID #120
[2020-05-24 14:20] VITALS: BP 134/76
== END 2020-05-24 13:00 | disposition home or self-care (01) | DRG 682 ==
LOC: ED 13:17 → 4A 23:28 → OBSVTOIN 05-16 11:28
PROVIDERS: ADMIT Internal Medicine Geriatric Medicine; ATTEND Internal Medicine
PROC: 06H033Z Insertion of Infusion Device into Inferior Vena Cava, Percutaneous Approach (ICD-10-PCS; principal; 2020-05-19)
PROC: B5191ZA Fluoroscopy of Inferior Vena Cava using Low Osmolar Contrast, Guidance (ICD-10-PCS; 2020-05-19)
PROC: B543ZZA Ultrasonography of Right Jugular Veins, Guidance (ICD-10-PCS; 2020-05-19)
PROC: 5A1D70Z Performance of Urinary Filtration, Intermittent, Less than 6 Hours Per Day (ICD-10-PCS; 2020-05-19)
PROC: 5A1D70Z Performance of Urinary Filtration, Intermittent, Less than 6 Hours Per Day (ICD-10-PCS; 2020-05-20)
PROC: 5A1D70Z Performance of Urinary Filtration, Intermittent, Less than 6 Hours Per Day (ICD-10-PCS; 2020-05-23)
DX: I12.0 Hypertensive chronic kidney disease with stage 5 chronic kidney disease or end stage renal disease (principal); N18.6 End stage renal disease; E11.22 Type 2 diabetes mellitus with diabetic chronic kidney disease; D63.8 Anemia in other chronic diseases classified elsewhere; Z79.899 Other long term (current) drug therapy; Z88.0 Allergy status to penicillin
CPT/HCPCS: 36415; 36558; 71045; 77001; 80048; 80053; 80074; 82962; 85025; 85610; 85730; 86850; 86900; 86901; 90686; 93970; 96365; 96375; G0378; C1750; J1644; J2250; J2405; J3010; J3370; J7040; J7050

== ENCOUNTER 2020-05-26 17:34 | Observation (INO) | payer SELFPAY ==
--- NOTE | 2020-05-26 17:58 | Event Note ---
ED Screening Note Date of service: 05/26/20 Time: 17:57 ED Screening Note: Patient with end-stage renal failure presents the ER requesting dialysis. Patient has permacath in the right chest wall This initial assessment/diagnostic orders/clinical plan/treatment(s) is/are subject to change based on patients health status, clinical progression and re- assessment by fellow clinical providers in the ED. Further treatment and workup at subsequent clinical providers discretion. Patient/guardian urged not to elope from the ED as their condition may be serious if not clinically assessed and managed. Initial orders include: CBC, BMP, chest x-ray
[2020-05-26 18:33] LABS: Basophils # (Auto) 0.1 K/mm3 (0.0-0.1); Basophils % (Auto) 0.8 % (0.0-1.8); Eosinophils # (Auto) 0.1 K/mm3 (0.0-0.4); Eosinophils % (Auto) 1.3 % (0.0-4.3); Hematocrit 26.8 % (35.5-45.6); Hemoglobin 9.4 gm/dl (11.8-15.2); Lymphocytes # (Auto) 1.3 K/mm3 (1.2-5.4); Lymphocytes % (Auto) 14.5 % (13.4-35.0); Mean Corpuscular HGB Conc 35 % (32-34); Mean Corpuscular Volume 88 fl (84-94); Monocytes # (Auto) 0.9 K/mm3 (0.0-0.8); Monocytes % (Auto) 9.8 % (0.0-7.3); Platelet Count 272 K/mm3 (140-440); Red Blood Count 3.06 M/mm3 (3.65-5.03)
--- NOTE | 2020-05-26 18:38 | XRay Report ---
CHEST 2 VIEWS INDICATION / CLINICAL INFORMATION: missed dialysis. COMPARISON: Chest x-ray 05/15/2020 FINDINGS: SUPPORT DEVICES: Right internal jugular port catheter has tip overlying SVC HEART / MEDIASTINUM: No significant abnormality. LUNGS / PLEURA: No significant pulmonary or pleural abnormality. No pneumothorax. ADDITIONAL FINDINGS: No significant additional findings. IMPRESSION: 1. No acute findings. Signer Name: Neymar Nelson MD Signed: 05/26/2020 6:33 PM Workstation Name: [id number]
[2020-05-26 18:52] LABS: Calcium 9.4 mg/dL (8.4-10.2)
--- NOTE | 2020-05-27 02:13 | Emergency Department Report ---
ED General Adult HPI - General Chief complaint: Medical Clearance Stated complaint: DIALYSIS Time Seen by Provider: 05/27/20 01:43 Source: patient Mode of arrival: Ambulatory Limitations: Language Barrier - History of Present Illness Initial comments: 50-year-old male with a past medical history of diabetes, hypertension, recently started on hemodialysis during recent hospitalization presents to the hospital stating that he was told to come back to receive his dialysis on Tuesday, May 26. Patient states he was just discharged from the hospital on May 24. He denies shortness of breath or chest pain. Patient is an undocumented citizen and therefore is having difficulty establishing an outpatient dialysis center. - Related Data Previous Rx's Medication Instructions Recorded Last Taken Type Ferrous Sulfate [Iron 325 MG] 325 mg PO DAILY #60 05/24/20 Unknown Rx Furosemide [Lasix TAB] 80 mg PO BID #120 05/24/20 Unknown Rx Sodium Bicarbonate 1 tab PO BID #120 05/24/20 Unknown Rx amLODIPine 10 mg PO DAILY #60 tablet 05/24/20 Unknown Rx calcitrioL [Rocaltrol] 1 mcg PO QDAY #60 cap 05/24/20 Unknown Rx carvediloL [Coreg] 3.125 mg PO BID #120 tablet 05/24/20 Unknown Rx glipiZIDE [Glucotrol] 5 mg PO QDAY #60 05/24/20 Unknown Rx Allergies Allergy/AdvReac Type Severity Reaction Status Date / Time Penicillins Allergy Dizziness Verified 12/26/14 02:05 ED Review of Systems ROS: Stated complaint: DIALYSIS Other details as noted in HPI Comment: All other systems reviewed and negative ED Past Medical Hx - Past Medical History Previous Medical History?: Yes Hx Hypertension: Yes Hx Congestive Heart Failure: No Hx Diabetes: Yes Hx Deep Vein Thrombosis: No Hx Renal Disease: Yes Hx Asthma: No Hx COPD: No - Surgical History Past Surgical History?: Yes Hx Pacemaker: No Hx Internal Defibrillator: No - Social History Smoking Status: Unknown if ever smoked Substance Use Type: None - Medications Home Medications: Home Medications Medication Instructions Recorded Confirmed Last Taken Type Ferrous Sulfate [Iron 325 MG] 325 mg PO DAILY #60 05/24/20 Unknown Rx Furosemide [Lasix TAB] 80 mg PO BID #120 05/24/20 Unknown Rx Sodium Bicarbonate 1 tab PO BID #120 05/24/20 Unknown Rx amLODIPine 10 mg PO DAILY #60 tablet 05/24/20 Unknown Rx calcitrioL [Rocaltrol] 1 mcg PO QDAY #60 cap 05/24/20 Unknown Rx carvediloL [Coreg] 3.125 mg PO BID #120 tablet 05/24/20 Unknown Rx glipiZIDE [Glucotrol] 5 mg PO QDAY #60 05/24/20 Unknown Rx ED Physical Exam - General Limitations: Language Barrier - Other Other exam information: General: No acute distress Head: Atraumatic Eyes: normal appearance ENT: Moist mucous membranes Neck: Normal appearance, no midline tenderness Chest: Clear to auscultation bilaterally. Right chest wall permacath CV: Regular rate and rhythm Abdomen: Soft, normal bowel sounds, nontender, nondistended, no rebound or guarding Back: Normal inspection Extremity: Trace bilateral lower extremity pitting edema Neuro: Alert O x 3, no facial asymmetry, speech clear, no gross motor sensory deficit Psych: Appropriate behavior Skin: No rash ED Course - Consultations Consultation #1: 05/27/20 02:[address] Johnston who will make arrangements for dialysis in the morning. At this time patient is stable and does not require emergent dialysis [facility] ED Medical Decision Making - Lab Data Result diagrams: 05/26/20 18:10 05/26/20 18:10 Lab Results 05/26/20 05/26/20 Range/Units 18:10 18:10 WBC 9.1 (4.5-11.0) K/mm3 RBC 3.06 L (3.65-5.03) M/mm3 Hgb 9.4 L (11.8-15.2) gm/dl Hct 26.8 L (35.5-45.6) % MCV 88 (84-94) fl MCH 31 (28-32) pg MCHC 35 H (32-34) % RDW 13.0 L (13.2-15.2) % Plt Count 272 (140-440) K/mm3 Lymph % (Auto) 14.5 (13.4-35.0) % [place] % (Auto) 9.8 H (0.0-7.3) % Eos % (Auto) 1.3 (0.0-4.3) % Baso % (Auto) 0.8 (0.0-1.8) % Lymph # (Auto) 1.3 (1.2-5.4) K/mm3 [place] # (Auto) 0.9 H (0.0-0.8) K/mm3 Eos # (Auto) 0.1 (0.0-0.4) K/mm3 Baso # (Auto) 0.1 (0.0-0.1) K/mm3 Seg Neutrophils % 73.6 H (40.0-70.0) % Seg Neutrophils # 6.7 (1.8-7.7) K/mm3 Sodium 138 (137-145) mmol/L Potassium 4.5 (3.6-5.0) mmol/L Chloride 93.0 L (98-107) mmol/L Carbon Dioxide 25 (22-30) mmol/L Anion Gap 25 mmol/L BUN 87 H (9-20) mg/dL Creatinine 10.0 H (0.8-1.3) mg/dL Estimated GFR 6 ml/min BUN/Creatinine Ratio 9 % Glucose 193 H (75-100) mg/dL Calcium 9.4 (8.4-10.2) mg/dL - Medical Decision Making 50-year-old male undocumented presents to the hospital requesting dialysis as instructed by discharging physician. Patient does not have a hyperkalemia or pulmonary edema symptoms at this time. Case discussed with geriatric nurse assistant numerical control programmer who will arrange for dialysis in the a.m. Hospitalist informed for admission Critical care attestation.: If time is entered above; I have spent that time in minutes in the direct care of this critically ill patient, excluding procedure time. ED Disposition Clinical Impression: ESRD needing dialysis Disposition: OP ADMIT IP TO THIS HOSP Is pt being admited?: Yes Condition: Stable Time of Disposition: 02:13 (Dr Aleman/hosp)
[2020-05-27] MEDS ORDERED: hydrALAZINE 20 MG/1 ML INJ IV ONE (02:58)
[2020-05-27] MEDS ORDERED: carvediloL 3.125 MG TAB PO SCH ×2 (03:10→10:00)
[2020-05-27] MEDS ORDERED: amLODIPine 10 MG TAB ONE (03:11)
[2020-05-27] MEDS ORDERED: amLODIPine 10 MG TAB PO SCH ×3 (03:15→10:00)
[2020-05-27] MEDS ORDERED: MAGNESIUM HYDROXIDE (MOM) ORAL LIQD UDC PO PRN (03:33)
[2020-05-27] MEDS ORDERED: DEXTROSE 50% IN WATER (25GM) 50 ML SYRINGE IV PRN (03:33)
[2020-05-27] MEDS ORDERED: ONDANSETRON 4 MG/2 ML INJ IV PRN (03:33)
[2020-05-27] MEDS ORDERED: ACETAMINOPHEN 325 MG TAB PO PRN (03:33)
[2020-05-27] MEDS ORDERED: MORPHINE 2 MG/1 ML INJ IV PRN (03:33)
--- NOTE | 2020-05-27 03:41 | History and Physical Report ---
History of Present Illness Date of examination: 05/27/20 Date of admission: 05/27/20 02:13 Chief complaint: ESRD needing dialysis History of present illness: 10-year-old female with known history of hypertension, diabetes mellitus, end- stage renal disease who was recently started on hemodialysis during a recent hospitalization presenting to the emergency room today because he was asked to report to the emergency room for dialysis. Patient was discharged from the hospital on May 24 but has not been able to establish with a hemodialysis center because he is an undocumented citizen. He denies any fever or chills, no chest pain or shortness of breath, no nausea or vomiting, no diarrhea. No headache or dizziness. Work-up in the emergency room today reveals a BUN of 87 and creatinine of 10. Gymnasium Teacher Dr. Johnston has been consulted and notified by the ER physician. Patient will be scheduled for dialysis this a.m. Past History Past Medical History: diabetes, hypertension Past Surgical History: Other (Vas cath placement right chest wall.) Social history: no significant social history Family history: no significant family history Medications and Allergies Allergies Allergy/AdvReac Type Severity Reaction Status Date / Time Penicillins Allergy Dizziness Verified 12/26/14 02:05 Home Medications Medication Instructions Recorded Confirmed Last Taken Type Ferrous Sulfate [Iron 325 MG] 325 mg PO DAILY #60 05/24/20 05/27/20 Unknown Rx Furosemide [Lasix TAB] 80 mg PO BID #120 05/24/20 05/27/20 Unknown Rx Sodium Bicarbonate 1 tab PO BID #120 05/24/20 05/27/20 Unknown Rx amLODIPine 10 mg PO DAILY #60 tablet 05/24/20 05/27/20 Unknown Rx calcitrioL [Rocaltrol] 1 mcg PO QDAY #60 cap 05/24/20 05/27/20 Unknown Rx carvediloL [Coreg] 3.125 mg PO BID #120 tablet 05/24/20 05/27/20 Unknown Rx glipiZIDE [Glucotrol] 5 mg PO QDAY #60 05/24/20 05/27/20 Unknown Rx Active Meds: Active Medications Amlodipine Besylate (Amlodipine) 10 mg PO ONCE JOSÉ ANTONIO Stop: 05/27/20 03:59 Last Admin: 05/27/20 03:21 Dose: 10 mg Documented by: Review of Systems Constitutional: no fever, no chills Ears, nose, mouth and throat: no nasal congestion, no sore throat Cardiovascular: no chest pain, no palpitations Respiratory: no cough, no shortness of breath Gastrointestinal: no abdominal pain, no nausea, no vomiting, no diarrhea Genitourinary Male: no dysuria, no hematuria, no flank pain Musculoskeletal: no neck pain, no low back pain Integumentary: no rash, no pruritis Neurological: no headaches, no confusion Psychiatric: no anxiety, no depression Exam - Constitutional Vitals: Temp Pulse Resp BP Pulse Ox 80 14 172/91 99 05/27/20 03:21 05/27/20 02:14 05/27/20 03:21 05/27/20 02:14 General appearance: Present: no acute distress, mild distress, well-nourished - EENT Eyes: Present: PERRL, EOM intact. Absent: scleral icterus ENT: hearing intact, clear oral mucosa, dentition normal - Neck Neck: Present: supple, normal ROM - Respiratory Respiratory effort: normal Respiratory: bilateral: CTA - Cardiovascular Rhythm: regular Heart Sounds: Present: S1 & S2. Absent: gallop, systolic murmur, diastolic murmur, rub - Extremities Extremities: no ischemia, pulses intact, pulses symmetrical, No edema, Full ROM - Abdominal General gastrointestinal: Present: soft, non-tender, non-distended, normal bowel sounds. Absent: mass - Integumentary Integumentary: Present: clear, warm, dry. Absent: rash - Musculoskeletal Musculoskeletal: strength equal bilaterally - Psychiatric Psychiatric: appropriate mood/affect, intact judgment & insight, memory intact, cooperative - Neurologic Neurologic: CNII-XII intact, no focal deficits, moves all extremities Results - Labs CBC & Chem 7: 05/26/20 18:10 05/26/20 18:10 Labs: Abnormal lab results 05/26/20 05/26/20 Range/Units 18:10 18:10 RBC 3.06 L (3.65-5.03) M/mm3 Hgb 9.4 L (11.8-15.2) gm/dl Hct 26.8 L (35.5-45.6) % MCHC 35 H (32-34) % RDW 13.0 L (13.2-15.2) % [place] % (Auto) 9.8 H (0.0-7.3) % [place] # (Auto) 0.9 H (0.0-0.8) K/mm3 Seg Neutrophils % 73.6 H (40.0-70.0) % Chloride 93.0 L (98-107) mmol/L BUN 87 H (9-20) mg/dL Creatinine 10.0 H (0.8-1.3) mg/dL Glucose 193 H (75-100) mg/dL Assessment and Plan - Patient Problems (1) ESRD needing dialysis Current Visit: Yes Status: Acute Plan to address problem: Gymnasium Teacher consulted for dialysis this morning. Patient has been unable to establish with a hemodialysis center as he is an undocumented citizen. (2) Diabetes mellitus Current Visit: Yes Status: Acute Plan to address problem: We will monitor Accu-Cheks. Resume routine home medications once reconciled. (3) Hypertension Current Visit: No Status: Acute Plan to address problem: We will continue routine home medications and monitor vital signs closely. (4) DVT prophylaxis Current Visit: No Status: Acute Plan to address problem: Patient placed on subcutaneous heparin. (5) Full code status Current Visit: No Status: Acute
[2020-05-27] MEDS: FUROSEMIDE 40 MG TAB PO SCH ×2 (06:20→17:53)
[2020-05-27] MEDS: HEPARIN 5,000 UNIT/1 ML VIAL SUB-Q SCH ×2 (06:20→17:53)
[2020-05-27] MEDS ORDERED: SODIUM CHLORIDE 0.9% 100 ML IV PRN (06:55)
[2020-05-27] MEDS ORDERED: glipiZIDE 5 MG TAB PO SCH (08:00)
[2020-05-27] MEDS ORDERED: NON-FORMULARY EACH (Furosemide [Lasix Tab] 80 MG) PO SCH (10:00)
[2020-05-27] MEDS ORDERED: CALCITRIOL 0.5 MCG CAP PO SCH (10:00)
[2020-05-27] MEDS ORDERED: SODIUM BICARBONATE 650 MG TAB PO SCH (10:00)
[2020-05-27] MEDS ORDERED: FERROUS SULFATE 325 MG TAB PO SCH (10:00)
[2020-05-27] MEDS: INSULIN LISPRO 100 UNIT/ML VIAL 3 mL SUB-Q SCH ×3 (10:02→17:52)
--- NOTE | 2020-05-27 17:24 | Discharge Summary ---
Providers - Providers Date of Admission: 05/27/20 02:13 Date of discharge: 05/27/20 Attending physician: MARIELOS SHEIKH 05/27/20 02:11 Consult to Physician [CONS] Urgent Comment: Consulting Provider: ELENI PABLO Physician Instructions: Reason For Exam: esrd needing dialysis 05/27/20 03:34 Consult to Dietitian/Nutrition [CONS] Routine Physician Instructions: Reason For Exam: Reason for Consult: Diet education Primary care physician: CATERING ADMINISTRATIVE ASSISTANT Hospitalization Condition: Stable Hospital course: 50-year-old female with known history of hypertension, diabetes mellitus, end- stage renal disease who was recently started on hemodialysis during a recent hospitalization presenting to the emergency room today because he was asked to report to the emergency room for dialysis. Patient was discharged from the hospital on May 24 but has not been able to establish with a hemodialysis center because he is an undocumented citizen. He denies any fever or chills, no chest pain or shortness of breath, no nausea or vomiting, no diarrhea. No headache or dizziness. Work-up in the emergency room today reveals a BUN of 87 and creatinine of 10. Yard Driver Dr. Pablo has been consulted and notified by the ER physician. Patient will be scheduled for dialysis this a.m. Patient had hemodialysis this morning Patient symptomatically better (1) ESRD needing dialysis Current Visit: Yes Status: Acute Plan to address problem: Patient had hemodialysis Symptomatically better Patient wants to go home (2) Diabetes mellitus Current Visit: Yes Status: Acute Plan to address problem: Patient to continue diabetes medications (3) Hypertension Current Visit: No Status: Acute Plan to address problem: Blood pressure under control. Continue home blood pressure medications Disposition: -01 TO HOME OR SELFCARE Time spent for discharge: 30 minutes - Discharge Diagnoses (1) Diabetes mellitus Status: Acute (2) ESRD needing dialysis Status: Acute (3) Hypertension Status: Acute Core Measure Documentation - Palliative Care Palliative Care/ Comfort Measures: Not Applicable - Core Measures Any of the following diagnoses?: none Exam - Constitutional Vitals: Temp Pulse Resp BP Pulse Ox 98.8 F 76 20 138/80 99 05/27/20 13:30 05/27/20 13:30 05/27/20 13:30 05/27/20 13:30 05/27/20 02:14 General appearance: Present: no acute distress, well-nourished - EENT Eyes: Present: PERRL ENT: hearing intact, clear oral mucosa - Neck Neck: Present: supple, normal ROM - Respiratory Respiratory effort: normal Respiratory: bilateral: CTA - Cardiovascular Heart rate: 78 Rhythm: regular Heart Sounds: Present: S1 & S2. Absent: rub, click - Extremities Extremities: pulses symmetrical, No edema Peripheral Pulses: within normal limits - Abdominal General gastrointestinal: Present: soft, non-tender, non-distended, normal bowel sounds Male genitourinary: Present: normal - Rectal Rectal Exam: deferred - Integumentary Integumentary: Present: clear, warm, dry - Musculoskeletal Musculoskeletal: gait normal, strength equal bilaterally - Psychiatric Psychiatric: appropriate mood/affect, intact judgment & insight - Neurologic Neurologic: CNII-XII intact, moves all extremities - Allied Health Allied health notes reviewed: nursing, case management Plan Activity: no restrictions Diet: renal Follow up with: PRIMARY CARE, [Primary Care Provider] - 3-5 Days
[2020-05-27 17:44] VITALS: BP 142/83
== END 2020-05-27 19:10 | disposition home or self-care (01) ==
LOC: ED 17:34 → 3A 05-27 02:13
PROVIDERS: ADMIT Internal Medicine Geriatric Medicine; ATTEND Internal Medicine
DX: I12.0 Hypertensive chronic kidney disease with stage 5 chronic kidney disease or end stage renal disease (principal); N18.6 End stage renal disease; E11.22 Type 2 diabetes mellitus with diabetic chronic kidney disease; Z99.2 Dependence on renal dialysis; Z98.890 Other specified postprocedural states
CPT/HCPCS: 36415; 71046; 80048; 82962; 85025; 96372; 96374; 99284; G0378; J1644; J2405

== ENCOUNTER 2020-05-30 07:51 | Emergency (ER) | payer SELFPAY ==
--- NOTE | 2020-05-30 08:40 | XRay Report ---
CHEST 2 VIEWS INDICATION / CLINICAL INFORMATION: PAIN. COMPARISON: 05/26/2020 FINDINGS: SUPPORT DEVICES: Unchanged. HEART / MEDIASTINUM: Stable. LUNGS / PLEURA: No significant pulmonary or pleural abnormality. No pneumothorax. ADDITIONAL FINDINGS: No significant additional findings. IMPRESSION: 1. No acute findings. No significant interval change. Signer Name: Paras Cooley MD Signed: 05/30/2020 8:36 AM Workstation Name: [id number]
[2020-05-30 09:42] LABS: Basophils # (Auto) 0.1 K/mm3 (0.0-0.1); Eosinophils # (Auto) 0.1 K/mm3 (0.0-0.4); Eosinophils % (Auto) 1.7 % (0.0-4.3); Hematocrit 24.6 % (35.5-45.6); Hemoglobin 8.5 gm/dl (11.8-15.2); Lymphocytes # (Auto) 1.2 K/mm3 (1.2-5.4); Lymphocytes % (Auto) 13.7 % (13.4-35.0); Mean Corpuscular HGB Conc 35 % (32-34); Mean Corpuscular Volume 89 fl (84-94); Monocytes # (Auto) 0.9 K/mm3 (0.0-0.8); Monocytes % (Auto) 11.2 % (0.0-7.3); Platelet Count 241 K/mm3 (140-440); Red Blood Count 2.77 M/mm3 (3.65-5.03); Red Cell Distribution Width 12.9 % (13.2-15.2)
[2020-05-30 09:47] LABS: Calcium 9.3 mg/dL (8.4-10.2)
--- NOTE | 2020-05-30 10:29 | Emergency Department Report ---
ED General Adult HPI - General Chief complaint: Medical Clearance Stated complaint: DIALYSIS Time Seen by Provider: 05/30/20 09:27 Source: patient Mode of arrival: Ambulatory Limitations: No Limitations - History of Present Illness Initial comments: Patient is a 50-year-old male with a past medical history of end-stage renal disease and hypertension who is presenting with possible need for dialysis. Last dialysis was 3 days ago. Patient is undocumented is coming to the emergency department for dialysis since he does not have a dialysis center. States he does not have any shortness of breath and denies chest pain nausea vomiting diarrhea fevers chills cough cold or congestion. - Related Data Previous Rx's Medication Instructions Recorded Last Taken Type Ferrous Sulfate [Iron 325 MG] 325 mg PO DAILY #60 05/24/20 Unknown Rx Furosemide [Lasix TAB] 80 mg PO BID #120 05/24/20 Unknown Rx Sodium Bicarbonate 1 tab PO BID #120 05/24/20 Unknown Rx amLODIPine 10 mg PO DAILY #60 tablet 05/24/20 Unknown Rx calcitrioL [Rocaltrol] 1 mcg PO QDAY #60 cap 05/24/20 Unknown Rx carvediloL [Coreg] 3.125 mg PO BID #120 tablet 05/24/20 Unknown Rx glipiZIDE [Glucotrol] 5 mg PO QDAY #60 05/24/20 Unknown Rx Allergies Allergy/AdvReac Type Severity Reaction Status Date / Time Penicillins Allergy Dizziness Verified 05/30/20 07:52 ED Review of Systems ROS: Stated complaint: DIALYSIS Other details as noted in HPI Comment: All other systems reviewed and negative ED Past Medical Hx - Past Medical History Hx Hypertension: Yes Hx Heart Attack/AMI: No Hx Congestive Heart Failure: No Hx Diabetes: Yes Hx Deep Vein Thrombosis: No Hx Renal Disease: Yes Hx Seizures: No Hx Asthma: No Hx COPD: No Hx Dementia: No - Surgical History Hx Coronary Stent: No Hx Pacemaker: No Hx Internal Defibrillator: No - Social History Smoking Status: Never Smoker Substance Use Type: None - Medications Home Medications: Home Medications Medication Instructions Recorded Confirmed Last Taken Type Ferrous Sulfate [Iron 325 MG] 325 mg PO DAILY #60 05/24/20 05/27/20 Unknown Rx Furosemide [Lasix TAB] 80 mg PO BID #120 05/24/20 05/27/20 Unknown Rx Sodium Bicarbonate 1 tab PO BID #120 05/24/20 05/27/20 Unknown Rx amLODIPine 10 mg PO DAILY #60 tablet 05/24/20 05/27/20 Unknown Rx calcitrioL [Rocaltrol] 1 mcg PO QDAY #60 cap 05/24/20 05/27/20 Unknown Rx carvediloL [Coreg] 3.125 mg PO BID #120 tablet 05/24/20 05/27/20 Unknown Rx glipiZIDE [Glucotrol] 5 mg PO QDAY #60 05/24/20 05/27/20 Unknown Rx ED Physical Exam - General Limitations: No Limitations General appearance: alert, in no apparent distress - Head Head exam: Present: atraumatic, normocephalic - Eye Eye exam: Present: normal appearance, PERRL, EOMI - ENT ENT exam: Present: mucous membranes moist - Neck Neck exam: Present: normal inspection - Respiratory Respiratory exam: Present: normal lung sounds bilaterally. Absent: respiratory distress, wheezes, rales, rhonchi, chest wall tenderness - Cardiovascular Cardiovascular Exam: Present: regular rate, normal rhythm. Absent: systolic murmur, diastolic murmur, rubs, gallop - GI/Abdominal GI/Abdominal exam: Present: soft, normal bowel sounds. Absent: distended, tenderness, guarding, rebound - Rectal Rectal exam: Present: deferred - Extremities Exam Extremities exam: Present: normal inspection - Back Exam Back exam: Present: normal inspection - Neurological Exam Neurological exam: Present: alert, oriented X3 - Psychiatric Psychiatric exam: Present: normal affect, normal mood - Skin Skin exam: Present: warm, dry, intact, normal color. Absent: rash ED Course Vital Signs 05/30/20 07:55 Temperature 98.0 F Pulse Rate 89 Respiratory 18 Rate Blood Pressure 175/91 O2 Sat by Pulse 98 Oximetry ED Medical Decision Making - Lab Data Result diagrams: 05/30/20 08:21 05/30/20 08:21 Lab Results 05/30/20 05/30/20 Range/Units 08:21 08:21 WBC 8.5 (4.5-11.0) K/mm3 RBC 2.77 L (3.65-5.03) M/mm3 Hgb 8.5 L (11.8-15.2) gm/dl Hct 24.6 L (35.5-45.6) % MCV 89 (84-94) fl MCH 31 (28-32) pg MCHC 35 H (32-34) % RDW 12.9 L (13.2-15.2) % Plt Count 241 (140-440) K/mm3 Lymph % (Auto) 13.7 (13.4-35.0) % [place] % (Auto) 11.2 H (0.0-7.3) % Eos % (Auto) 1.7 (0.0-4.3) % Baso % (Auto) 1.0 (0.0-1.8) % Lymph # (Auto) 1.2 (1.2-5.4) K/mm3 [place] # (Auto) 0.9 H (0.0-0.8) K/mm3 Eos # (Auto) 0.1 (0.0-0.4) K/mm3 Baso # (Auto) 0.1 (0.0-0.1) K/mm3 Seg Neutrophils % 72.4 H (40.0-70.0) % Seg Neutrophils # 6.1 (1.8-7.7) K/mm3 Sodium 137 (137-145) mmol/L Potassium 4.1 (3.6-5.0) mmol/L Chloride 98.5 (98-107) mmol/L Carbon Dioxide 24 (22-30) mmol/L Anion Gap 19 mmol/L BUN 86 H (9-20) mg/dL Creatinine 10.6 H (0.8-1.3) mg/dL Estimated GFR 5 ml/min BUN/Creatinine Ratio 8 % Glucose 239 H (75-100) mg/dL Calcium 9.3 (8.4-10.2) mg/dL - Medical Decision Making Patient appears well at this time. Nephrology has reviewed the patient's laboratory studies and believes the patient is stable for discharge and can return in 24 to 48 hours to have labs rechecked. At any point if the patient become short of breath he is to return as well. Critical care attestation.: If time is entered above; I have spent that time in minutes in the direct care of this critically ill patient, excluding procedure time. ED Disposition Clinical Impression: ESRD (end stage renal disease) Disposition: TO HOME OR SELFCARE Is pt being admited?: No Does the pt Need Aspirin: No Condition: Stable Instructions: End-Stage Kidney Disease Additional Instructions: Por favor, regrese al departamento de Emergencias en 24-48 horas para que los laboratorios Referrals: PRIMARY CARE, [Primary Care Provider] - 3-5 Days Time of Disposition: 10:29
[2020-05-30 11:42] VITALS: BP 135/84
== END 2020-05-30 11:14 | disposition home or self-care (01) ==
LOC: ED 07:51
DX: E11.22 Type 2 diabetes mellitus with diabetic chronic kidney disease (principal); I12.0 Hypertensive chronic kidney disease with stage 5 chronic kidney disease or end stage renal disease; N18.6 End stage renal disease; Z99.2 Dependence on renal dialysis; Z79.899 Other long term (current) drug therapy; Z88.0 Allergy status to penicillin
CPT/HCPCS: 36415; 71046; 80048; 85025; 99283

== ENCOUNTER 2020-06-02 11:58 | Observation (INO) | payer OTHER ==
--- NOTE | 2020-06-02 14:40 | Event Note ---
ED Screening Note ED Screening Note: pt presents for dialysis states he has mild edema in the legs no CP no SOB no fever no cough This initial assessment/diagnostic orders/clinical plan/treatment(s) is/are subject to change based on patients health status, clinical progression and re- assessment by fellow clinical providers in the ED. Further treatment and workup at subsequent clinical providers discretion. Patient/guardian urged not to elope from the ED as their condition may be serious if not clinically assessed and managed. Initial orders include: labs
[2020-06-02 15:57] LABS: Basophils # (Auto) 0.1 K/mm3 (0.0-0.1); Basophils % (Auto) 0.8 % (0.0-1.8); Eosinophils # (Auto) 0.1 K/mm3 (0.0-0.4); Eosinophils % (Auto) 0.7 % (0.0-4.3); Hematocrit 26.5 % (35.5-45.6); Lymphocytes # (Auto) 1.6 K/mm3 (1.2-5.4); Lymphocytes % (Auto) 16.9 % (13.4-35.0); Mean Corpuscular HGB Conc 34 % (32-34); Mean Corpuscular Volume 88 fl (84-94); Monocytes # (Auto) 0.7 K/mm3 (0.0-0.8); Platelet Count 259 K/mm3 (140-440); Red Blood Count 3.01 M/mm3 (3.65-5.03); Red Cell Distribution Width 13.2 % (13.2-15.2)
[2020-06-02 16:22] LABS: Albumin 4.1 g/dL (3.9-5); Calcium 9.3 mg/dL (8.4-10.2)
--- NOTE | 2020-06-03 00:31 | Emergency Department Report ---
ED General Adult HPI - General Chief complaint: Medical Clearance Stated complaint: DIALYSIS PUI?: No Time Seen by Provider: 06/02/20 14:40 Source: patient, RN notes reviewed, old records reviewed Mode of arrival: Ambulatory Limitations: No Limitations, Language Barrier - History of Present Illness Initial comments: The patient was evaluated in the emergency department for symptoms described in the history of present illness. He/she was evaluated in the context of the global COVID-19 pandemic, which necessitated consideration that the patient might be at risk for infection with the virus that causes COVID-19. Institution al protocols and algorithms that pertain to the evaluation of patients at risk for COVID-19 are in a state of rapid change based on information released by regulatory bodies including the CDC and federal and state organizations. These policies and algorithms were followed during the patient's care in the emergency department. Please note that these policies, procedures and recommendations changed on a rapid basis. Patient is conversant in [place], and this provider is conversant in French. Patient is a pleasant 50-year-old gentleman. I have evaluated this patient in the past. He is unfortunately an undocumented individual, and requires hemodialysis. He has a right-sided thoracic Vas-Cath. His last hemodialysis was 1 week ago. He presents to the ER today with a complaint of painless request for hemodialysis. He does not have an outpatient primary care doctor or sports journalist. He denies physical pain. He endorses bilateral lower extremity swelling. -: Gradual Severity scale (0 -10): 0 Consistency: constant Improves with: other (Hemodialysis) Worsens with: other (Not having hemodialysis) Associated Symptoms: other (Lower extremity swelling) - Related Data Previous Rx's Medication Instructions Recorded Last Taken Type Ferrous Sulfate [Iron 325 MG] 325 mg PO DAILY #60 05/24/20 Unknown Rx Furosemide [Lasix TAB] 80 mg PO BID #120 05/24/20 Unknown Rx Sodium Bicarbonate 1 tab PO BID #120 05/24/20 Unknown Rx amLODIPine 10 mg PO DAILY #60 tablet 05/24/20 Unknown Rx calcitrioL [Rocaltrol] 1 mcg PO QDAY #60 cap 05/24/20 Unknown Rx carvediloL [Coreg] 3.125 mg PO BID #120 tablet 05/24/20 Unknown Rx glipiZIDE [Glucotrol] 5 mg PO QDAY #60 11/21/20 Unknown Rx Allergies Allergy/AdvReac Type Severity Reaction Status Date / Time Penicillins Allergy Dizziness Verified 05/30/20 07:52 ED Review of Systems ROS: Stated complaint: DIALYSIS Other details as noted in HPI Comment: All other systems reviewed and negative Musculoskeletal: other (Lower extremity swelling) ED Past Medical Hx - Past Medical History Previous Medical History?: Yes Hx Hypertension: Yes Hx Heart Attack/AMI: No Hx Congestive Heart Failure: No Hx Diabetes: Yes Hx Deep Vein Thrombosis: No Hx Renal Disease: Yes Hx Seizures: No Hx Asthma: No Hx COPD: No Hx Dementia: No - Surgical History Hx Coronary Stent: No Hx Pacemaker: No Hx Internal Defibrillator: No - Social History Smoking Status: Never Smoker Substance Use Type: None - Medications Home Medications: Home Medications Medication Instructions Recorded Confirmed Last Taken Type Ferrous Sulfate [Iron 325 MG] 325 mg PO DAILY #60 05/24/20 05/27/20 Unknown Rx Furosemide [Lasix TAB] 80 mg PO BID #120 05/24/20 05/27/20 Unknown Rx Sodium Bicarbonate 1 tab PO BID #120 05/24/20 05/27/20 Unknown Rx amLODIPine 10 mg PO DAILY #60 tablet 05/24/20 05/27/20 Unknown Rx calcitrioL [Rocaltrol] 1 mcg PO QDAY #60 cap 05/24/20 05/27/20 Unknown Rx carvediloL [Coreg] 3.125 mg PO BID #120 tablet 05/24/20 05/27/20 Unknown Rx glipiZIDE [Glucotrol] 5 mg PO QDAY #60 05/24/20 05/27/20 Unknown Rx ED Physical Exam - General Limitations: No Limitations General appearance: alert, in no apparent distress - Head Head exam: Present: atraumatic, normocephalic - Eye Eye exam: Present: normal appearance, EOMI. Absent: nystagmus - ENT ENT exam: Present: normal exam, normal orophraynx, mucous membranes moist, normal external ear exam - Neck Neck exam: Present: normal inspection, full ROM, other (5 cm of JVD noted bilaterally). Absent: tenderness, meningismus, lymphadenopathy, thyromegaly - Respiratory Respiratory exam: Present: normal lung sounds bilaterally, other (Right-sided Vas-Cath noted. No redness, pus or streaking noted.). Absent: respiratory distress, wheezes, rales, rhonchi, stridor - Cardiovascular Cardiovascular Exam: Present: regular rate, normal rhythm, normal heart sounds. Absent: bradycardia, tachycardia, irregular rhythm, systolic murmur, diastolic murmur, rubs, gallop - GI/Abdominal GI/Abdominal exam: Present: soft. Absent: distended, tenderness, guarding, rebound, rigid, pulsatile mass - Rectal Rectal exam: Present: deferred - Extremities Exam Extremities exam: Present: normal inspection, full ROM, pedal edema (3+ edema noted in the bilateral lower extremities), other (2+ pulses noted in the bilateral upper and lower extremities. There is no palpable cord. negative Homans sign. Muscular compartments are soft. The pelvis is stable.). Absent: calf tenderness - Back Exam Back exam: Present: normal inspection, full ROM. Absent: tenderness, CVA tenderness (R), CVA tenderness (L), paraspinal tenderness, vertebral tenderness - Neurological Exam Neurological exam: Present: alert, other (No facial droop. Tongue midline. Extraocular movements intact bilaterally. Facial sensation intact to light touch in V1, V2, V3 distribution bilaterally. 5 and a 5 strength in 4 extremities. Sensation intact to light touch in 4 extremities.) - Psychiatric Psychiatric exam: Present: normal affect, normal mood - Skin Skin exam: Present: warm, dry, intact, normal color. Absent: rash ED Course Vital Signs 06/02/20 06/03/20 06/03/20 14:30 00:18 00:19 Temperature 97.8 F 97.8 F Pulse Rate 81 88 Respiratory 18 13 16 Rate Blood Pressure Blood Pressure 192/97 187/94 [Right] O2 Sat by Pulse 99 100 Oximetry 06/03/20 00:30 Temperature Pulse Rate 84 Respiratory 14 Rate Blood Pressure 186/103 Blood Pressure [Right] O2 Sat by Pulse 100 Oximetry ED Medical Decision Making - Lab Data Result diagrams: 06/02/20 15:30 06/02/20 15:30 Vital Signs 06/02/20 06/03/20 06/03/20 14:30 00:18 00:19 Temperature 97.8 F 97.8 F Pulse Rate 81 88 Respiratory 18 13 16 Rate Blood Pressure Blood Pressure 192/97 187/94 [Right] O2 Sat by Pulse 99 100 Oximetry 06/03/20 00:30 Temperature Pulse Rate 84 Respiratory 14 Rate Blood Pressure 186/103 Blood Pressure [Right] O2 Sat by Pulse 100 Oximetry Lab Results 06/02/20 06/02/20 Range/Units 15:30 15:30 WBC 9.2 (4.5-11.0) K/mm3 RBC 3.01 L (3.65-5.03) M/mm3 Hgb 9.0 L (11.8-15.2) gm/dl Hct 26.5 L (35.5-45.6) % MCV 88 (84-94) fl MCH 30 (28-32) pg MCHC 34 (32-34) % RDW 13.2 (13.2-15.2) % Plt Count 259 (140-440) K/mm3 Lymph % (Auto) 16.9 (13.4-35.0) % [place] % (Auto) 8.0 H (0.0-7.3) % Eos % (Auto) 0.7 (0.0-4.3) % Baso % (Auto) 0.8 (0.0-1.8) % Lymph # (Auto) 1.6 (1.2-5.4) K/mm3 [place] # (Auto) 0.7 (0.0-0.8) K/mm3 Eos # (Auto) 0.1 (0.0-0.4) K/mm3 Baso # (Auto) 0.1 (0.0-0.1) K/mm3 Seg Neutrophils % 73.6 H (40.0-70.0) % Seg Neutrophils # 6.8 (1.8-7.7) K/mm3 Sodium 139 (137-145) mmol/L Potassium 4.9 (3.6-5.0) mmol/L Chloride 102.5 (98-107) mmol/L Carbon Dioxide 21 L (22-30) mmol/L Anion Gap 20 mmol/L BUN 108 H (9-20) mg/dL Creatinine 12.0 H (0.8-1.3) mg/dL Estimated GFR 5 ml/min BUN/Creatinine Ratio 9 % Glucose 149 H (75-100) mg/dL Calcium 9.3 (8.4-10.2) mg/dL Total Bilirubin 0.20 (0.1-1.2) mg/dL AST 19 (5-40) units/L ALT 20 (7-56) units/L Alkaline Phosphatase 131 H (35-129) units/L Total Protein 7.5 (6.3-8.2) g/dL Albumin 4.1 (3.9-5) g/dL Albumin/Globulin Ratio 1.2 % - EKG Data -: EKG Interpreted by Me EKG shows normal: sinus rhythm Rate: normal - EKG Data 06/03/20 00:51 Sinus rhythm, 81 bpm, normal axis, QTC 478 ms, left ventricular hypertrophy/high left ventricular voltage, and motion artifact, borderline atrial enlargement. No endorsement of chest pain, abnormal EKG, the EKG is not a STEMI. Appears to be fairly unchanged when compared to prior EKG from 10/2018. - Medical Decision Making Differential diagnosis, including but not limited to: Fluid overload, metabolic acidosis, azotemia, uremia, anemia of chronic disease Assessment and plan: 50-year-old gentleman who requires hemodialysis, who has not been dialyzed in 1 week, presenting with a request for hemodialysis. He has chronic hypertension, chronic anemia. Laboratory studies today demonstrate metabolic acidosis, uremia, azotemia. He has 3+ edema in his bilateral lower extremities. In spite of having relatively normal potassium, secondary to the aforementioned, he does not meet criteria for hospitalization for urgent hemodialysis. I have discussed this with the patient, and he is amenable to admission/hospitalization. I have contacted nephrology on-call, Dr. Kris Paredes, discussed the patient's history, physical, pertinent laboratory studies and imaging studies. He agrees with plan of care and will arrange for urgent hemodialysis in the morning. Hospital physician, Dr. Bertrand Aleman to admit Patient denies new cough, fever, loss of taste, loss of smell, exposure to Covid positive individuals that he is aware of. Critical care attestation.: If time is entered above; I have spent that time in minutes in the direct care of this critically ill patient, excluding procedure time. ED Disposition Clinical Impression: ESRD needing dialysis, Hypertension, Anemia in chronic illness, Volume overload Disposition: OP ADMIT IP TO THIS HOSP Is pt being admited?: Yes Does the pt Need Aspirin: No Condition: Good Instructions: Hypertension (ED) Referrals: PRIMARY CARE, [Primary Care Provider] - 3-5 Days
[2020-06-03] MEDS ORDERED: carvediloL 3.125 MG TAB PO STA (00:53)
[2020-06-03] MEDS ORDERED: amLODIPine 10 MG TAB PO STA (00:53)
[2020-06-03] MEDS ORDERED: FERROUS SULFATE 325 MG TAB PO STA (00:53)
[2020-06-03] MEDS ORDERED: SODIUM BICARBONATE 650 MG TAB PO ONE (01:15)
--- NOTE | 2020-06-03 01:15 | XRay Report ---
CHEST - 1 VIEW INDICATION: esrd fluid overload COMPARISON: 05/30/2020 FINDINGS: SUPPORT DEVICES: Stable support device positioning. HEART: Stable cardiomediastinal silhouette. LUNGS/PLEURA: Clear lungs. ADDITIONAL FINDINGS: None. IMPRESSION: Unchanged exam. Signer Name: Octaviano Olivarez MD Signed: 06/03/2020 1:11 AM Workstation Name: [id number]
[2020-06-03] MEDS ORDERED: MAGNESIUM HYDROXIDE (MOM) ORAL LIQD UDC PO PRN (01:30)
[2020-06-03] MEDS ORDERED: DEXTROSE 50% IN WATER (25GM) 50 ML SYRINGE IV PRN (01:30)
[2020-06-03] MEDS ORDERED: ONDANSETRON 4 MG/2 ML INJ IV PRN (01:30)
[2020-06-03] MEDS ORDERED: ACETAMINOPHEN 325 MG TAB PO PRN (01:30)
[2020-06-03] MEDS ORDERED: MORPHINE 2 MG/1 ML INJ IV PRN (01:30)
--- NOTE | 2020-06-03 01:40 | History and Physical Report ---
History of Present Illness Date of examination: 06/03/20 Date of admission: 06/03/20 00:55 Chief complaint: Lower extremity swelling History of present illness: 50-year-old male with known history of hypertension, diabetes mellitus and end-stage renal disease on dialysis seen in the emergency room today requesting for dialysis and also complaining of lower extremity swelling. Patient is not affiliated with any dialysis center as he is undocumented and therefore had been coming to this facility for dialysis as needed. He denies any chest pain and denies any shortness of breath. No fever or chills, no nausea vomiting, no headache or dizziness. Work-up today reveals BUN of 108 and creatinine of 12. [facility] on-call has been notified by the ER physician and patient will be scheduled for dialysis. Past History Past Medical History: diabetes, dialysis, ESRD, hypertension Past Surgical History: Other (Vas cath placement) Social history: no significant social history Medications and Allergies Allergies Allergy/AdvReac Type Severity Reaction Status Date / Time Penicillins Allergy Dizziness Verified 05/30/20 07:52 Home Medications Medication Instructions Recorded Confirmed Last Taken Type Ferrous Sulfate [Iron 325 MG] 325 mg PO DAILY #60 05/24/20 05/27/20 Unknown Rx Furosemide [Lasix TAB] 80 mg PO BID #120 05/24/20 05/27/20 Unknown Rx Sodium Bicarbonate 1 tab PO BID #120 05/24/20 05/27/20 Unknown Rx amLODIPine 10 mg PO DAILY #60 tablet 05/24/20 05/27/20 Unknown Rx calcitrioL [Rocaltrol] 1 mcg PO QDAY #60 cap 05/24/20 05/27/20 Unknown Rx carvediloL [Coreg] 3.125 mg PO BID #120 tablet 05/24/20 05/27/20 Unknown Rx glipiZIDE [Glucotrol] 5 mg PO QDAY #60 05/24/20 05/27/20 Unknown Rx Active Meds: Active Medications Acetaminophen (Tylenol) 650 mg PO Q4H PRN PRN Reason: Pain MILD(1-3)/Fever >100.5/GRAY Dextrose (D50w (25gm) Syringe) 50 ml IV Q30MIN PRN; Protocol PRN Reason: Hypoglycemia Dextrose (D50w (25gm) Syringe) 50 ml IV Q30MIN PRN; Protocol PRN Reason: Hypoglycemia Insulin Human Lispro (Humalog) 0 unit SUB-Q ACHS JOSÉ ANTONIO; Protocol Magnesium Hydroxide (Milk Of Magnesia) 30 ml PO Q4H PRN PRN Reason: Constipation Morphine Sulfate (Morphine) 2 mg IV Q4H PRN PRN Reason: Pain, Moderate (4-6) Ondansetron HCl (Zofran) 4 mg IV Q8H PRN PRN Reason: Nausea And Vomiting Sodium Chloride (Sodium Chloride Flush Syringe 10 Ml) 10 ml IV BID JOSÉ ANTONIO Sodium Chloride (Sodium Chloride Flush Syringe 10 Ml) 10 ml IV PRN PRN PRN Reason: LINE FLUSH Review of Systems Constitutional: no fever, no chills Ears, nose, mouth and throat: no nasal congestion, no sore throat Cardiovascular: no chest pain, no palpitations Respiratory: shortness of breath, no cough Gastrointestinal: no abdominal pain, no nausea, no vomiting, no diarrhea Genitourinary Male: no dysuria, no hematuria, no flank pain Musculoskeletal: no neck pain, no low back pain Integumentary: no rash, no pruritis (') Neurological: no headaches, no confusion Psychiatric: no anxiety, no depression Exam - Constitutional Vitals: Temp Pulse Resp BP Pulse Ox 97.8 F 83 14 182/101 100 06/03/20 00:18 06/03/20 01:02 06/03/20 00:30 06/03/20 01:02 06/03/20 00:30 General appearance: Present: no acute distress, well-nourished - EENT Eyes: Present: PERRL, EOM intact. Absent: scleral icterus ENT: hearing intact, clear oral mucosa, dentition normal - Neck Neck: Present: supple, normal ROM - Respiratory Respiratory effort: normal Respiratory: bilateral: CTA - Cardiovascular Rhythm: regular Heart Sounds: Present: S1 & S2. Absent: systolic murmur, diastolic murmur, rub - Extremities Extremities: no ischemia, pulses intact, pulses symmetrical, No edema, Full ROM Peripheral Pulses: within normal limits - Abdominal General gastrointestinal: Present: soft, non-tender, non-distended, normal bowel sounds. Absent: mass - Integumentary Integumentary: Present: clear, warm, dry. Absent: rash - Musculoskeletal Musculoskeletal: strength equal bilaterally - Psychiatric Psychiatric: appropriate mood/affect, intact judgment & insight, memory intact, cooperative - Neurologic Neurologic: CNII-XII intact, no focal deficits, moves all extremities Results - Labs CBC & Chem 7: 06/02/20 15:30 06/02/20 15:30 Labs: Abnormal lab results 06/02/20 06/02/20 Range/Units 15:30 15:30 RBC 3.01 L (3.65-5.03) M/mm3 Hgb 9.0 L (11.8-15.2) gm/dl Hct 26.5 L (35.5-45.6) % [place] % (Auto) 8.0 H (0.0-7.3) % Seg Neutrophils % 73.6 H (40.0-70.0) % Carbon Dioxide 21 L (22-30) mmol/L BUN 108 H (9-20) mg/dL Creatinine 12.0 H (0.8-1.3) mg/dL Glucose 149 H (75-100) mg/dL Alkaline Phosphatase 131 H (35-129) units/L Assessment and Plan - Patient Problems (1) ESRD needing dialysis Current Visit: Yes Status: Acute Plan to address problem: [facility] on-call has been notified by the ER physician and he will be scheduled for dialysis. (2) Hypertension Current Visit: Yes Status: Acute Plan to address problem: We will resume routine home medications and monitor vital signs closely. (3) Anemia in chronic illness Current Visit: Yes Status: Chronic Plan to address problem: Possibly chronic. We will monitor CBC. (4) Diabetes mellitus Current Visit: No Status: Acute Plan to address problem: We will monitor Accu-Cheks and resume routine home medications. (5) DVT prophylaxis Current Visit: No Status: Acute Plan to address problem: Patient placed on subcutaneous heparin. (6) Full code status Current Visit: No Status: Acute
[2020-06-03] MEDS ORDERED: SODIUM CHLORIDE 0.9% 100 ML IV PRN (08:07)
[2020-06-03] MEDS ORDERED: EPOETIN ALFA 10,000 UNIT/1 ML INJ SUB-Q PRN (08:07)
[2020-06-03] MEDS ORDERED: HEPARIN 10,000 UNITS/10 ML VIAL IV PRN (08:07)
--- NOTE | 2020-06-03 10:28 | Consultation ---
History of Present Illness - Reason for Consult Consult date: 06/03/20 end stage renal disease, hyperkalemia - History of Present Illness The patient is a 50 YO male with known history of Hypertension, Diabetes mellitus and ESRD on hemodialysis who presented to [facility] ED 06/03 for hemodialysis. Pt endorses some lower extremity swelling. Patient is currently not affiliated with any dialysis center as he is undocumented and therefore had been coming to this facility for dialysis as needed. He was last dialzyed on 05/27. He denies any chest pain, shortness of breath, fever, chills, nausea, vomiting, headache or dizziness. Work-up revealed BUN of 108 and creatinine of 12. Nephrology was consulted for ESRD management. Past History Past Medical History: diabetes, dialysis, ESRD, hypertension Past Surgical History: Other (Vas cath placement) Social history: no significant social history Medications and Allergies Allergies Allergy/AdvReac Type Severity Reaction Status Date / Time Penicillins Allergy Dizziness Verified 05/30/20 07:52 Home Medications Medication Instructions Recorded Confirmed Last Taken Type Ferrous Sulfate [Iron 325 MG] 325 mg PO DAILY #60 05/24/20 05/27/20 Unknown Rx Furosemide [Lasix TAB] 80 mg PO BID #120 05/24/20 05/27/20 Unknown Rx Sodium Bicarbonate 1 tab PO BID #120 05/24/20 05/27/20 Unknown Rx amLODIPine 10 mg PO DAILY #60 tablet 05/24/20 05/27/20 Unknown Rx calcitrioL [Rocaltrol] 1 mcg PO QDAY #60 cap 05/24/20 05/27/20 Unknown Rx carvediloL [Coreg] 3.125 mg PO BID #120 tablet 05/24/20 05/27/20 Unknown Rx glipiZIDE [Glucotrol] 5 mg PO QDAY #60 05/24/20 05/27/20 Unknown Rx Active Meds: Active Medications Acetaminophen (Tylenol) 650 mg PO Q4H PRN PRN Reason: Pain MILD(1-3)/Fever >100.5/GRAY Dextrose (D50w (25gm) Syringe) 0 ml IV Q30MIN PRN; Protocol PRN Reason: Hypoglycemia Epoetin Saul (Procrit) 10,000 unit SUB-Q MAX PRN PRN Reason: hemodialysis Heparin Sodium (Porcine) (Heparin 10,000 Units/10 Ml) 3,000 unit IV MAX PRN PRN Reason: hemodialysis Sodium Chloride (Nacl 0.9%) 100 mls @ 999 mls/hr IV MAX PRN PRN Reason: Hypotension Insulin Human Lispro (Humalog) 0 unit SUB-Q ACHS JOSÉ ANTONIO; Protocol Labetalol HCl (Labetalol) 10 mg IV Q4HR PRN PRN Reason: Blood Pressure Magnesium Hydroxide (Milk Of Magnesia) 30 ml PO Q4H PRN PRN Reason: Constipation Morphine Sulfate (Morphine) 2 mg IV Q4H PRN PRN Reason: Pain, Moderate (4-6) Ondansetron HCl (Zofran) 4 mg IV Q8H PRN PRN Reason: Nausea And Vomiting Sodium Chloride (Sodium Chloride Flush Syringe 10 Ml) 10 ml IV BID JOSÉ ANTONIO Sodium Chloride (Sodium Chloride Flush Syringe 10 Ml) 10 ml IV PRN PRN PRN Reason: LINE FLUSH Review of Systems All systems: negative Exam - Vital Signs Vital signs: Vital Signs Temp Pulse Resp BP Pulse Ox 97.8 F 81 18 192/97 99 06/02/20 14:30 06/02/20 14:30 06/02/20 14:30 06/02/20 14:30 06/02/20 14:30 Results - Lab Results 06/02/20 15:30 06/02/20 15:30 Most recent lab results Calcium 9.3 mg/dL (8.4-10.2) 06/02/20 15:30 Assessment and Plan 1. End stage renal disease: Patient was last dialyzed on 05/27. Hemodialysis: 06/03. 2. FEN: Hyperkalemia, HD today. Metabolic acidosis, HD today, monitor. Monitor lytes and volume status. 3. Hypertension: Resume home meds. UF with HD. Monitor BP. 4. Anemia, POA: Epogen with HD. Monitor Hb. Subjective: Patient was seen and examined at the bedside. Examination: General appearance: alert, well-developed, appears stated age, no distress HEENT: ATNC, SADIA Neck: neck supple, trachea midline Respiratory: Clear to Auscultation Heart: regular, normal heart rate, S1S2, no murmur Gastrointestinal: soft, normoactive bowel sounds, not tender, not distended Integumentary: no rash, warm and dry Neurologic: no focal deficit, alert and oriented x3 Ext: trace LE edema Hemodialysis access: R IJ tunnel catheter
[2020-06-03] MEDS: INSULIN LISPRO 100 UNIT/ML VIAL 3 mL SUB-Q SCH ×2 (11:36→11:37)
--- NOTE | 2020-06-03 12:50 | Event Note ---
Date: 06/03/20
[2020-06-03 15:23] VITALS: BP 160/90
--- NOTE | 2020-06-03 17:29 | Discharge Summary ---
Providers - Providers Date of Admission: 06/03/20 00:55 Date of discharge: 06/03/20 Attending physician: MARY MOHR 06/03/20 00:30 Consult to Physician [CONS] Urgent Comment: Consulting Provider: PATRICIA RIZO Physician Instructions: Reason For Exam: esrd 06/03/20 01:31 Consult to Dietitian/Nutrition [CONS] Routine Physician Instructions: Reason For Exam: Reason for Consult: Diet education Primary care physician: ART CRITIC Hospitalization Condition: Good Disposition: DC-[id number] LEFT AGAINST MED ADVICE Time spent for discharge: 32 min Core Measure Documentation - Palliative Care Palliative Care/ Comfort Measures: Not Applicable Exam - Constitutional Vitals: Temp Pulse Resp BP Pulse Ox 98.0 F 90 18 160/90 100 06/03/20 15:15 06/03/20 15:15 06/03/20 15:15 06/03/20 15:15 06/03/20 10:30 Plan Follow up with: PRIMARY CARE, [Primary Care Provider] - 3-5 Days Forms: AMA Form, Work/School Release Form(ED)
== END 2020-06-03 15:56 | disposition left against medical advice (07) ==
LOC: ED 11:58 → 3A 06-03 00:55 → 4A 06-03 02:57 → 3A 06-03 07:33
PROVIDERS: ADMIT Internal Medicine Geriatric Medicine; ATTEND Internal Medicine
DX: I12.0 Hypertensive chronic kidney disease with stage 5 chronic kidney disease or end stage renal disease (principal); N18.6 End stage renal disease; E87.70 Fluid overload, unspecified; D63.1 Anemia in chronic kidney disease; E11.22 Type 2 diabetes mellitus with diabetic chronic kidney disease; E87.5 Hyperkalemia; E87.2 Acidosis; Z99.2 Dependence on renal dialysis; Z98.890 Other specified postprocedural states; Z79.4 Long term (current) use of insulin
CPT/HCPCS: 36415; 71045; 80053; 85025; 93005; 99285; G0378; J0885

== ENCOUNTER 2020-06-10 02:13 | Emergency (ER) | payer SELFPAY ==
[2020-06-10 03:33] VITALS: BP 155/81
[2020-06-10 05:20] LABS: Calcium 9.3 mg/dL (8.4-10.2)
== END 2020-06-10 14:26 | disposition left against medical advice (07) ==
LOC: ED 02:13
DX: Z91.15 Patient's noncompliance with renal dialysis (principal); Z53.21 Procedure and treatment not carried out due to patient leaving prior to being seen by health care provider
CPT/HCPCS: 36415; 80048